=== PATIENT | female | born 1940 | race Caucasian/White ===

== ENCOUNTER 2016-05-28 16:57 | Emergency (ER) | payer MEDICARE, OTHER ==
[2016-05-28] MEDS ORDERED: Albuterol/Ipratropium 3.0-0.5 MG/3 ML Neb Soln NEB ONE (17:04)
[2016-05-28] MEDS ORDERED: Sodium Chloride 0.9% 10 ML Syringe FLUSH PRN (17:05)
[2016-05-28] MEDS ORDERED: methylPREDNISolone Sodium Succinate 125 MG/2 ML SDV IV ONE (17:06)
--- NOTE | 2016-05-28 17:08 | EDM.PDOC ---
ED HISTORY OF PRESENT ILLNESS - General Chief Complaint: Asthma Stated Complaint: SOB Time Seen by Provider: 05/28/16 16:57 Source: Reports: Patient History Limitations: Reports: No limitations - History of Present Illness INITIAL COMMENTS - FREE TEXT/NARRATIVE: c/o sob x 8h awoke sob and wheezing, stayed at home, comes to ED quite SOB, no n/v, no f/c/d , no rhinorrhea, has had cough, no CP had asthma 40y ago, now with no asthma meds has a skipped heart beat and wears a monitor which is sent in monthly, denies other cardiac hx lives alone, son here, does not drive, uses a walker on occasion when she is out , getting more unsteady on her feet - Related Data Allergies/ADRs: Allergies Allergy/AdvReac Type Severity Reaction Status Date / Time No Known Allergies Allergy Verified 05/28/16 17:06 Home Meds: Home Meds Aspirin [Ecotrin] 81 mg PO BEDTIME 05/09/15 [History] Calcium Carbonate [[id number]] 500 mg PO DAILY 05/09/15 [History] Mirtazapine [Mirtazapine] 15 mg PO BEDTIME 05/09/15 [History] [place]-3S/DHA/Epa/Fish Oil [[place]-3 Fish Oil 1,000 mg Sfgl] 1,000 mg PO DAILY [History] Simvastatin [Simvastatin] 40 mg PO BEDTIME 05/09/15 [History] traZODone 200 mg PO BEDTIME 05/09/15 [History] Levothyroxine [Sythroid] 100 mcg PO DAILY 08/08/15 [History] Venlafaxine HCl [Venlafaxine ER] 150 mg DAILY 08/08/15 [History] traZODone 50 mg BID 08/08/15 [History] PARoxetine [Paxil] 30 mg PO DAILY 05/28/16 [History] Prednisone [IJD: predniSONE] 20 mg PO DAILY #9 tab 05/28/16 [Rx] Past Medical History HEENT History: Reports: Cataract, Hard of hearing, Impaired vision, Otitis media Cardiovascular History: Reports: Arrhythmia, High cholesterol, Hypertension, Pacemaker, SOB on exertion Respiratory History: Reports: Pneumonia, recurrent, SOB, Other (see below) Other Respiratory History: EMPHYSEMA Gastrointestinal History: Reports: Cholelithiasis Other Gastrointestinal History: DYSPHAGIA WITH CHOKING Genitourinary History: Reports: None [employer] 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 - Past Surgical History HEENT Surgical History: Reports: Adenoidectomy, Tonsillectomy Cardiovascular Surgical History: Reports: Pacer GI Surgical History: Reports: Appendectomy, Cholecystectomy, Colonoscopy, Polypectomy Female Surgical History: Reports: D&C, Hysterectomy Oncologic Surgical History: Reports: None Social & Family History - Family History Family Medical History: Noncontributory - Tobacco Use Smoking Status *Q: Former Smoker - Recreational Drug Use Recreational Drug Use: No ED ROS GENERAL - Review of Systems Review Of Systems: See Below Constitutional: Reports: no symptoms HEENT: Reports: No symptoms Respiratory: Reports: Shortness of Breath, Wheezing, Cough Cardiovascular: Reports: No symptoms Endocrine: Reports: no symptoms GI/Abdominal: Reports: No symptoms : Reports: no symptoms Musculoskeletal: Reports: no symptoms Skin: Reports: no symptoms Neurological: Reports: No Symptoms Psychiatric: Reports: No symptoms Hematologic/Lymphatic: Reports: no symptoms Immunologic: Reports: no symptoms ED EXAM, GENERAL - Physical Exam Exam: See Below Exam Limited By: No limitations General Appearance: alert, WD/WN, mild distress, other (mild dypnea, fair AE without audible wheezing, talks 6-8 word sentences, no diaphoresis) Ears: normal external exam, hearing grossly normal Ear Exam: bilateral ear: auricle normal Nose: normal inspection, normal mucosa, no blood Throat/Mouth: Normal inspection, Normal lips, Normal teeth, Normal gums, Normal oropharynx, Normal voice, No airway compromise Head: atraumatic, normocephalic Neck: normal inspection, supple, non-tender, full range of motion Respiratory/Chest: no accessory muscle use, chest non-tender, other (fair AE, no grunt, no purse lips) Cardiovascular: regular rate, rhythm, no edema, other (2/6 LIANA at LSB) Back Exam: normal inspection, full range of motion, NT Extremities: normal inspection, normal range of motion, non-tender, no pedal edema Neurological: alert, oriented, CN II-XII intact, normal cognition, no motor/ sensory deficits Psychiatric: normal affect, normal mood Skin Exam: Warm, Dry, Intact, Normal color, No rash Lymphatic: no adenopathy Course - Vital Signs Last Recorded V/S: Last Vital Signs Temp 36.9 C 05/28/16 17:37 Pulse 79 05/28/16 18:30 Resp 15 05/28/16 18:30 BP 144/60 H 05/28/16 18:30 Pulse Ox 98 05/28/16 18:30 - Orders/Labs/Meds Orders: Active Orders 24 hr Category Date Time Status EKG Documentation Completion [RC] ASDIRECTED Care 05/28/16 17:00 Active RT Aerosol Therapy [RC] ASDIRECTED Care 05/28/16 17:04 Active Chest 1V Frontal [CR] Stat Exams 05/28/16 17:02 Taken Chest 2V [CR] Stat Exams 05/28/16 18:42 Taken Sodium Chloride 0.9% [Saline Flush] Med 05/28/16 17:05 Active 10 ml FLUSH ASDIRECTED PRN Saline Lock Insert [OM.PC] Routine Oth 05/28/16 17:05 Ordered EKG 12 Lead [EK] Routine Ther 05/28/16 17:00 Ordered Medication Orders Sodium Chloride (Saline Flush) 10 ml FLUSH ASDIRECTED PRN PRN Reason: Keep Vein Open Last Admin: 05/28/16 17:22 Dose: 10 ml Labs: Laboratory Tests 05/28/16 05/28/16 05/28/16 Range/Units 17:20 17:20 17:20 WBC 6.2 (4.5-12.0) X10-3/uL RBC 4.38 (3.23-5.20) x10(6)uL Hgb 11.9 (11.5-15.5) g/dL Hct 36.7 (30.0-51.3) % MCV 83.7 (80-96) fL MCH 27.3 L (27.7-33.6) pg MCHC 32.6 (32.2-35.4) g/dL RDW 12.6 (11.5-15.5) % Plt Count 215 (125-369) X10(3)uL MPV 9.1 (7.4-10.4) fL Neut % (Auto) 56.9 (46-82) % Lymph % (Auto) 30.1 (13-37) % Pacific % (Auto) 9.5 (4-12) % Eos % (Auto) 2 (1.0-5.0) % Baso % (Auto) 1 (0-2) % Neut # (Auto) 3.5 (1.6-8.3) # Lymph # (Auto) 1.9 (0.6-5.0) # Pacific # (Auto) 0.6 (0.0-1.3) # Eos # (Auto) 0.1 (0.0-0.8) # Baso # (Auto) 0.1 (0.0-0.2) # D-Dimer, Quantitative 173 (100-400) ng/mL ABG pH (7.35-7.45) ABG pCO2 (35-45) mmHg ABG pO2 (83-108) mmHg ABG HCO3 (22-26) mmol/L ABG O2 Saturation (96-97) % ABG Base Excess (-2-2) Norris Test O2 Delivery Device Sodium 136 (135-145) mmol/L Potassium 4.4 (3.5-5.3) mmol/L Chloride 105 (100-110) mmol/L Carbon Dioxide 21 L (23-29) mmol/L BUN 15 (8-23) mg/dL Creatinine 0.7 (0.6-1.3) mg/dL Est Cr Clr Drug Dosing 58.12 mL/min Estimated GFR (MDRD) > 60 (>60) BUN/Creatinine Ratio 21.4 H (9-20) Glucose 147 H (80-116) mg/dL Lactic Acid (0.5-2.2) mmol/L Calcium 8.4 L (8.6-10.2) mg/dL Total Bilirubin 0.6 (0.1-1.3) mg/dL AST 25 D (5-27) IU/L ALT 18 (14-26) IU/L Alkaline Phosphatase 65 (56-112) IU/L Troponin I (0.02-0.06) NG/ML C-Reactive Protein 0.8 (0.0-1.0) mg/dL B-Natriuretic Peptide (0-100) pg/mL Total Protein 6.3 (6.0-8.0) g/dL Albumin 3.6 (3.2-4.6) g/dL Globulin 2.7 g/dL Albumin/Globulin Ratio 1.3 05/28/16 05/28/16 05/28/16 Range/Units 17:20 17:20 17:20 WBC (4.5-12.0) X10-3/uL RBC (3.23-5.20) x10(6)uL Hgb (11.5-15.5) g/dL Hct (30.0-51.3) % MCV (80-96) fL MCH (27.7-33.6) pg MCHC (32.2-35.4) g/dL RDW (11.5-15.5) % Plt Count (125-369) X10(3)uL MPV (7.4-10.4) fL Neut % (Auto) (46-82) % Lymph % (Auto) (13-37) % Pacific % (Auto) (4-12) % Eos % (Auto) (1.0-5.0) % Baso % (Auto) (0-2) % Neut # (Auto) (1.6-8.3) # Lymph # (Auto) (0.6-5.0) # Pacific # (Auto) (0.0-1.3) # Eos # (Auto) (0.0-0.8) # Baso # (Auto) (0.0-0.2) # D-Dimer, Quantitative (100-400) ng/mL ABG pH 7.49 H (7.35-7.45) ABG pCO2 31 L (35-45) mmHg ABG pO2 76 L (83-108) mmHg ABG HCO3 24 (22-26) mmol/L ABG O2 Saturation 96 (96-97) % ABG Base Excess 1.3 (-2-2) Norris Test Not performed O2 Delivery Device Room air Sodium (135-145) mmol/L Potassium (3.5-5.3) mmol/L Chloride (100-110) mmol/L Carbon Dioxide (23-29) mmol/L BUN (8-23) mg/dL Creatinine (0.6-1.3) mg/dL Est Cr Clr Drug Dosing mL/min Estimated GFR (MDRD) (>60) BUN/Creatinine Ratio (9-20) Glucose (80-116) mg/dL Lactic Acid (0.5-2.2) mmol/L Calcium (8.6-10.2) mg/dL Total Bilirubin (0.1-1.3) mg/dL AST (5-27) IU/L ALT (14-26) IU/L Alkaline Phosphatase (56-112) IU/L Troponin I < 0.01 L (0.02-0.06) NG/ML C-Reactive Protein (0.0-1.0) mg/dL B-Natriuretic Peptide 64 (0-100) pg/mL Total Protein (6.0-8.0) g/dL Albumin (3.2-4.6) g/dL Globulin g/dL Albumin/Globulin Ratio / Range/Units 17:20 WBC (4.5-12.0) X10-3/uL RBC (3.23-5.20) x10(6)uL Hgb (11.5-15.5) g/dL Hct (30.0-51.3) % MCV (80-96) fL MCH (27.7-33.6) pg MCHC (32.2-35.4) g/dL RDW (11.5-15.5) % Plt Count (125-369) X10(3)uL MPV (7.4-10.4) fL Neut % (Auto) (46-82) % Lymph % (Auto) (13-37) % [place] % (Auto) (4-12) % Eos % (Auto) (1.0-5.0) % Baso % (Auto) (0-2) % Neut # (Auto) (1.6-8.3) # Lymph # (Auto) (0.6-5.0) # Pacific # (Auto) (0.0-1.3) # Eos # (Auto) (0.0-0.8) # Baso # (Auto) (0.0-0.2) # D-Dimer, Quantitative (100-400) ng/mL ABG pH (7.35-7.45) ABG pCO2 (35-45) mmHg ABG pO2 (83-108) mmHg ABG HCO3 (22-26) mmol/L ABG O2 Saturation (96-97) % ABG Base Excess (-2-2) Norris Test O2 Delivery Device Sodium (135-145) mmol/L Potassium (3.5-5.3) mmol/L Chloride (100-110) mmol/L Carbon Dioxide (23-29) mmol/L BUN (8-23) mg/dL Creatinine (0.6-1.3) mg/dL Est Cr Clr Drug Dosing mL/min Estimated GFR (MDRD) (>60) BUN/Creatinine Ratio (9-20) Glucose (80-116) mg/dL Lactic Acid 1.7 (0.5-2.2) mmol/L Calcium (8.6-10.2) mg/dL Total Bilirubin (0.1-1.3) mg/dL AST (5-27) IU/L ALT (14-26) IU/L Alkaline Phosphatase (56-112) IU/L Troponin I (0.02-0.06) NG/ML C-Reactive Protein (0.0-1.0) mg/dL B-Natriuretic Peptide (0-100) pg/mL Total Protein (6.0-8.0) g/dL Albumin (3.2-4.6) g/dL Globulin g/dL Albumin/Globulin Ratio Meds: Medications Generic Name Dose Route Start Last Admin Trade Name Freq PRN Reason Stop Dose Admin Sodium Chloride 10 ml 05/28/16 17:05 05/28/16 17:22 Saline Flush FLUSH 10 ml ASDIRECTED PRN Administration Keep Vein Open Discontinued Medications Generic Name Dose Route Start Last Admin Trade Name Freq PRN Reason Stop Dose Admin Albuterol/Ipratropium 3 ml 05/28/16 17:04 05/28/16 17:16 Duoneb 3.0-0.5 Mg/3 Ml NEB 05/28/16 17:05 3 ml ONETIME ONE Administration Methylprednisolone Sodium Succinate 125 mg 05/28/16 17:06 05/28/16 17:25 Solu-Medrol IV 05/28/16 17:07 125 mg ONETIME ONE Administration - Re-Assessments/Exams Free Text/Narrative Re-Assessment/Exam: 05/28/16 19:22 labs and XR reviewed with pt, EKG and troponin and BNP are all wnl, no evidence of infiltrate or effusion on CxR, there is a diaphragmatic hernia on CxR with loss of ~20% of effective lung capacity on L, while hernia is likely old, there is no comparison. Pt did respond well to Duoneb with inc'd AE and dec'd dyspnea. No cough observed here, talking now in complete sentences. Trigger for asthma exacerbation unknown. No evidence of infection, no temp, CRP neg. Departure - Departure Time of Disposition: 19:25 Disposition: Home, Self-Care 01 Condition: good Clinical Impression: Asthma exacerbation, Diaphragmatic hernia Prescriptions: Prednisone [IJD: predniSONE] 20 mg PO DAILY #9 tab Instructions: How to Use an Inhaler, [id number], Asthma, Adult, Hernia, Adult Forms: ED Department Discharge Additional Instructions: To keep the airways open, take 2 puffs from the albuterol inhaler 4 times a day for 2 days, then 2 puffs every 4 hours as needed. To keep the airways open, take the prednisone 20 mg 2 tabs daily for 2 days, then 1 tab daily for 5 days. See your doctor in 2 days. Return to ED if you are feeling worse or are more short of breath. Call your Physician or Return to Emergency Department if: * Your condition worsens in any way. * You develop fever greater than 100.4. * You have vomiting that does not stop with medications. * You have pain that is not controlled with medications. - My Orders Last 24 Hours: My Active Orders 05/28/16 17:00 EKG Documentation Completion [RC] ASDIRECTED EKG 12 Lead [EK] Routine 05/28/16 17:02 Chest 1V Frontal [CR] Stat 05/28/16 17:04 RT Aerosol Therapy [RC] ASDIRECTED 05/28/16 17:05 Sodium Chloride 0.9% [Saline Flush] 10 ml FLUSH ASDIRECTED PRN Saline Lock Insert [OM.PC] Routine 05/28/16 18:42 Chest 2V [CR] Stat - Assessment/Plan Last 24 Hours: My Active Orders 05/28/16 17:00 EKG Documentation Completion [RC] ASDIRECTED EKG 12 Lead [EK] Routine 05/28/16 17:02 Chest 1V Frontal [CR] Stat 05/28/16 17:04 RT Aerosol Therapy [RC] ASDIRECTED 05/28/16 17:05 Sodium Chloride 0.9% [Saline Flush] 10 ml FLUSH ASDIRECTED PRN Saline Lock Insert [OM.PC] Routine 05/28/16 18:42 Chest 2V [CR] Stat
[2016-05-28] MEDS ORDERED: Albuterol 8 GM Inhaler INH ONE (19:23)
[2016-05-28 19:40] VITALS: BP 141/62
--- NOTE | 2016-05-29 12:35 | CR ---
INDICATION: Short of breath. CHEST: AP upright portable view of the chest 05/28/2016 at 1719 hours was obtained upright. No comparisons were available. The heart is normal in size and shape. The aorta is somewhat tortuous with suggestion of calcification in the arch of the aorta. Overlying EKG leads are noted. Overlying metallic densities from apparel are noted. Slightly elevated left hemidiaphragm is likely anatomic, with gastric fundus in that area. Somewhat heavy marking are noted in the lower lung diaz, which may be on the basis of pulmonary fibrosis. A consolidating pneumonia or effusion was not seen. IMPRESSION: No definite acute process. MTDD
--- NOTE | 2016-05-29 12:37 | CR ---
INDICATION: Asthma, question hiatal hernia. CHEST: PA and lateral views of the chest were obtained with two PA views and revealed somewhat elevated left hemidiaphragm, most likely an anatomic variation , with what appears to be the gastric bubble in that area, splenic flexure below. Interdigitation of the right hemidiaphragm leaf is noted, somewhat flattened diaphragm leaf seen with slightly prominent AP diameter, suggesting COPD. A definite active infiltrate or effusion was not identified. Somewhat diminished bone density is suggested, compatible with osteoporosis - correlate clinically. Mild degenerative changes are noted in the mid thoracic spine with a mild dextroconvex scoliosis. The heart appeared normal in size and shape. The aorta is tortuous to a mild degree with calcification in the arch. IMPRESSION: 1. No definite acute process. 2. Probable COPD. 3. Pulmonary fibrosis with somewhat heavy markings in the mid to lower lung diaz. 4. Osteoporosis, dextroconvex scoliosis lower middle thoracic spine with mild degenerative changes mid thoracic spine. 5. ASD aorta. 6. Somewhat elevated left hemidiaphragm, most likely an anatomic variant with gastric bubble in that area. If hiatal hernia is suspected clinically, additional examination such as esophagram or upper GI may be helpful. MTDD
== END 2016-05-28 19:35 | disposition home or self-care (01) ==
LOC: FB.ED 16:57
DX: J45.901 Unspecified asthma with (acute) exacerbation (principal); K44.9 Diaphragmatic hernia without obstruction or gangrene; I10 Essential (primary) hypertension; E20.9 Hypoparathyroidism, unspecified; E78.00 Pure hypercholesterolemia, unspecified; F41.9 Anxiety disorder, unspecified; F32.9 Major depressive disorder, single episode, unspecified; Z79.82 Long term (current) use of aspirin; Z79.899 Other long term (current) drug therapy; Z87.891 Personal history of nicotine dependence
CPT/HCPCS: 36415; 36600; 71010; 71020; 80053; 82803; 83605; 83880; 84484; 85025; 85379; 86140; 93005; 96374; 99284; A9270; J2930; J7050; J7620; 94640

== ENCOUNTER 2018-12-02 07:48 | Day surgery (SDC) | payer MEDICARE ==
[~2018-12-02 07:48] MED LIST: Lactated Ringers 1,000 ML IV PRN
[2018-12-02] MEDS ORDERED: Sodium Chloride 0.9% 10 ML Syringe IV ONE (07:49)
[2018-12-02] MEDS ORDERED: fentaNYL 100 MCG/2 ML SDV IV ONE (07:49)
[2018-12-02] MEDS ORDERED: Midazolam 1 MG/ML 2 ML SDV IV ONE (07:49)
[2018-12-02] MEDS: Sodium Chloride 0.9% 10 ML Syringe FLUSH PRN (08:23)
--- NOTE | 2018-12-02 11:37 | OR ---
DATE OF OPERATION: 12/02/2018 SURGEON: Nelly Rivas MD PREOPERATIVE DIAGNOSIS: Visually significant cataract, left eye. POSTOPERATIVE DIAGNOSIS: Visually significant cataract, left eye. PROCEDURES PERFORMED: Phacoemulsification with intraocular lens placement, left eye. ASSISTANTS: None. ANESTHESIA: Local with sedation. COMPLICATIONS: None. BLOOD LOSS: None. IMPLANTS: Al [id number], 24.0 diopter lens implanted. CDE: 3.68. DESCRIPTION OF PROCEDURE: After risks and benefits were reviewed with the patient, consent was obtained in the preoperative area, and the operative eye was marked with a surgical pen. In the preoperative area, a pledget was used to dilate the pupil consisting of a mixture of phenylephrine 10%, cyclopentolate 2%, moxifloxacin 0.5%, and bupivacaine 0.75%. The patient was taken to the operating room, where a time-out was performed, and the patient was placed under monitored anesthesia care. Topical tetracaine was used for anesthesia. The operative eye was prepped and draped for ophthalmic surgery, and the microscope was brought into position and focussed. A paracentesis incision was made, followed by injection of preservative-free 1% lidocaine into the anterior chamber, followed by injection of Viscoat into the anterior chamber. A microkeratome blade was used to make a corneal limbal incision temporarily. A cystotome was used to make the beginning of the capsulorrhexis, which was carried around 360 degrees in a curvilinear fashion using Utrata forceps. A Anthony cannula with BSS was used to hydrodissect and hydrodelineate the nucleus. The nucleus was removed in a divide and conquer manner using phacoemulsification. Irrigation and aspiration were used to remove the remaining cortical material. Provisc was used to inflate the capsular bag, and a pre-loaded Al [id number], 24.0 diopter lens, serial number [id number] was injected into the capsular bag. A Sinskey hook was used to position and center the lens. Next, irrigation and aspiration was used to remove any remaining viscoelastic and cortical material from the anterior chamber. BSS on a cannula was used to inflate the anterior chamber and hydrate the wound. The wound was checked and found to be watertight. 1 mg of Moxifloxacin was injected into the anterior chamber. Drapes were removed and the eye was cleaned. A drop of brimonidine 0.15% and a drop of TobraDex was placed. The eye was shielded, and the patient was taken to the recovery room in stable condition. /[id number] DARREN/MATT CC: HERMILA BARBA NP MTDD
[2018-12-02 16:25] VITALS: BP 114/62; PULSE 72
== END 2018-12-02 10:40 | disposition home or self-care (01) ==
LOC: FB.SDS 07:48
PROVIDERS: ATTEND Ophthalmology
DX: H25.9 Unspecified age-related cataract (principal); E03.9 Hypothyroidism, unspecified; E78.5 Hyperlipidemia, unspecified; I10 Essential (primary) hypertension; G47.00 Insomnia, unspecified; F03.90 Unspecified dementia, unspecified severity, without behavioral disturbance, psychotic disturbance, mood disturbance, and anxiety; F41.9 Anxiety disorder, unspecified; F32.9 Major depressive disorder, single episode, unspecified; Z79.899 Other long term (current) drug therapy; Z79.82 Long term (current) use of aspirin; Z87.891 Personal history of nicotine dependence
CPT/HCPCS: 66984; J2250; J3010; V2632

== ENCOUNTER 2019-11-28 11:21 | Emergency (ER) | payer MEDICARE ==
[2019-11-28 11:34] VITALS: BP 92/66; PULSE 86
[2019-11-28] MEDS ORDERED: Sodium Chloride 0.9% 10 ML Syringe FLUSH PRN (11:40)
[2019-11-28] MEDS ORDERED: Sodium Chloride 0.9% 500 ML IV ONE (11:40)
--- NOTE | 2019-11-28 11:48 | EDM.PDOC ---
ED HPI GENERAL MEDICAL PROBLEM - General Chief Complaint: Head Injury Stated Complaint: FALL Time Seen by Provider: 11/28/19 11:41 Source of Information: Reports: Patient History Limitations: Reports: No Limitations - History of Present Illness INITIAL COMMENTS - FREE TEXT/NARRATIVE: Patient tripped over the edge of her rug, fell backwards and struck the back of her head against a kitchen chair at her residence ([facility]). There was no LOC. She complains of mild headache and dizziness. Denies chest pain, abdominal pain, pelvis pain, or N/V. PMHx significant for hyperlipidemia, hypothyroidism, Anxiety, and Depression. Last Tetanus vaccine was 2014. Onset: Today Duration: Hour(s): (1) Location: Reports: Head Severity: Mild Headache Pain Score (Numeric/FACES): 4 - Related Data Allergies Allergy/AdvReac Type Severity Reaction Status Date / Time No Known Allergies Allergy Verified 11/28/19 11:59 Home Meds: Home Meds Aspirin [Ecotrin] 81 mg PO BEDTIME 05/09/15 [History] [place]-3S/DHA/Epa/Fish Oil [[place]-3 Fish Oil 1,000 mg Sfgl] 1,000 mg PO TID 05/09/15 [History] DULoxetine [Cymbalta] 60 mg PO DAILY 11/18/17 [History] Donepezil [Aricept] 2.5 mg PO DAILY 11/18/17 [History] Levothyroxine [Synthroid] 88 mcg PO DAILY 11/18/17 [History] QUEtiapine Fumarate [Seroquel] 100 mg PO DAILY 11/18/17 [History] clonazePAM [Klonopin] 1 mg PO BID 11/18/17 [History] Albuterol [Ventolin HFA] 2 puff INH Q4H PRN 11/28/18 [History] Calcium Carbonate 500 mg PO TIDMEALS 11/28/18 [History] Carboxymethylcellulose Sodium [Refresh Tears] 15 ml OP ASDIRECTED PRN 11/28/18 [History] DULoxetine [Cymbalta] 30 mg PO DAILY 11/28/18 [History] Memantine [Namenda] 5 mg PO DAILY 11/28/18 [History] Simvastatin [Zocor] 20 mg PO DAILY 11/28/18 [History] Past Medical History HEENT History: Reports: Cataract, Hard of Hearing, Impaired Vision, Otitis Media Cardiovascular History: Reports: Arrhythmia, High Cholesterol, Pacemaker, SOB on Exertion, Syncope Respiratory History: Reports: Pneumonia, Recurrent, SOB, Other (See Below) Other Respiratory History: EMPHYSEMA, DYSPHAGIA Gastrointestinal History: Reports: Cholelithiasis Other Gastrointestinal History: DYSPHAGIA WITH CHOKING Genitourinary History: Reports: None 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 - Infectious Disease History Infectious Disease History: Reports: Chicken Pox, Measles, Mumps, Shingles - Past Surgical History Head Surgeries/Procedures: Reports: None HEENT Surgical History: Reports: Adenoidectomy, Cataract Surgery, Tonsillectomy Cardiovascular Surgical History: Reports: Pacer Respiratory Surgical History: Reports: None GI Surgical History: Reports: Appendectomy, Cholecystectomy, Colonoscopy, Polypectomy Female Surgical History: Reports: Breast Biopsy, D&C, Hysterectomy Endocrine Surgical History: Reports: None Neurological Surgical History: Reports: None Musculoskeletal Surgical History: Reports: None Oncologic Surgical History: Reports: None Dermatological Surgical History: Reports: None Social & Family History - Family History Family Medical History: Noncontributory - Tobacco Use Tobacco Use Status *Q: Former Tobacco User Used Tobacco, but Quit: Yes Month/Year Tobacco Last Used: 24 years ago - Caffeine Use Caffeine Use: Reports: Coffee - Alcohol Use Alcohol Use History: No - Recreational Drug Use Recreational Drug Use: No ED ROS GENERAL - Review of Systems Review Of Systems: Comprehensive ROS is negative, except as noted in HPI. ED EXAM, HEAD INJURY - Physical Exam Exam: See Below Exam Limited By: No Limitations General Appearance: Alert, WD/WN, No Apparent Distress Head: Other (4 cm left occipital laceration) Nexus Criteria: No: Posterior, Midline Cervical Tenderness, Evidence of Intoxication, Altered Level of Consciousness, Focal Neurological Deficit, Painful Distraction Injuries Eyes: Bilateral Eye: EOMI, PERRL Ears: Normal External Exam Nose: Normal Inspection Throat/Mouth: No Airway Compromise Neck: Non-Tender Respiratory: No Respiratory Distress, Lungs Clear, Normal Breath Sounds Cardiovascular: Regular Rate, Rhythm, No Murmur GI/Abdominal Exam: Normal Bowel Sounds, Soft, Non-Tender, No Distention Back Exam: Normal Inspection, Full Range of Motion Extremities: Normal Inspection, Normal Range of Motion, Non-Tender Neurologic: No Motor/Sensory Deficits, Alert, Normal Mood/Affect, Oriented x 3 - [place] Coma Score Best Eye Response (Frank): (4) Open Spontaneously Best Verbal Response ([place]): (5) Oriented Best Motor Response (Frank): (6) Obeys Commands [place] Total: 15 ED LACERATION/WOUND & BREA PROC - Laceration/Wound Repair Head Lac/wound length in cm: 4 Appearance: Subcutaneous Distal NVT: Neuro & Vascular Intact Anesthetic Type: Local Local Anesthesia - Lidocaine (Xylocaine): 1% Plain Local Anesthetic Volume: 3cc Skin Prep: Chlorhexidine (Hibiciens) Closed with: Shanti # of Sutures: 8 Tetanus Status Addressed: Yes Complications: No #1 Interpretation EKG Date: 11/28/19 Time: 11:40 Rhythm: NSR Rate (Beats/Min): 81 [place]: Normal P-Wave: Present QRS: Normal ST-T: Normal QT: Normal Course - Vital Signs Last Recorded V/S: Last Vital Signs Temp 36.5 C 11/28/19 11:25 Pulse 86 11/28/19 11:25 Resp 18 11/28/19 11:25 BP 92/66 11/28/19 11:25 Pulse Ox 96 11/28/19 11:25 - Orders/Labs/Meds Orders: Active Orders 24 hr Category Date Time Status Cervical Spine wo Cont [CT] Stat Exams 11/28/19 11:27 Ordered Head wo Cont [CT] Stat Exams 11/28/19 11:25 Taken UA W/MICROSCOPIC [URIN] Stat Lab 11/28/19 12:15 Received Saline Lock Insert [OM.PC] Routine Oth 11/28/19 11:40 Ordered EKG 12 Lead [EK] Stat Ther 11/28/19 11:39 Ordered Labs: Laboratory Tests 11/28/19 11/28/19 11/28/19 Range/Units 12:00 12:00 12:00 WBC 5.9 (4.5-12.0) X10-3/uL RBC 4.50 (3.23-5.20) x10(6)uL Hgb 12.2 (11.5-15.5) g/dL Hct 37.8 (30.0-51.3) % MCV 84.0 (80-96) fL MCH 27.2 L (27.7-33.6) pg MCHC 32.4 (32.2-35.4) g/dL RDW 13.2 (11.5-15.5) % Plt Count 210 (125-369) X10(3)uL MPV 8.3 (7.4-10.4) fL Neut % (Auto) 64.6 (46-82) % Lymph % (Auto) 22.3 (13-37) % Lee % (Auto) 10.4 (4-12) % Eos % (Auto) 2 (1.0-5.0) % Baso % (Auto) 1 (0-2) % Neut # (Auto) 3.9 (1.6-8.3) # Lymph # (Auto) 1.3 (0.6-5.0) # Lee # (Auto) 0.6 (0.0-1.3) # Eos # (Auto) 0.1 (0.0-0.8) # Baso # (Auto) 0.0 (0.0-0.2) # PT 10.9 (9.0-11.1) sec INR 1.01 (1.00-1.24) Sodium 145 (135-145) mmol/L Potassium 4.0 (3.5-5.3) mmol/L Chloride 108 (100-110) mmol/L Carbon Dioxide 33 H (21-32) mmol/L BUN 15 (7-18) mg/dL Creatinine 0.9 (0.55-1.02) mg/dL Est Cr Clr Drug Dosing 39.43 mL/min Estimated GFR (MDRD) > 60 (>60) BUN/Creatinine Ratio 16.7 (9-20) Glucose 101 (80-116) mg/dL Calcium 8.5 L (8.6-10.2) mg/dL Meds: Medications Discontinued Medications Generic Name Dose Route Start Last Admin Trade Name Freq PRN Reason Stop Dose Admin Cefuroxime Axetil 250 mg 11/28/19 14:00 11/28/19 14:00 Ceftin PO 11/28/19 14:01 250 mg ONETIME ONE Administration Sodium Chloride 500 mls @ 500 mls/hr 11/28/19 11:40 11/28/19 11:52 Normal Saline IV 11/28/19 12:39 500 mls/hr .BOLUS ONE Administration Sodium Chloride 10 ml 11/28/19 11:40 11/28/19 11:50 Saline Flush FLUSH 10 ml ASDIRECTED PRN Administration Keep Vein Open - Radiology Interpretation Free Text/Narrative:: CT Head s/ contrast: IMPRESSION: 1. No acute intracranial abnormality. 2. Soft tissue swelling and laceration of the left posterior scalp. Dictated by Chris Hull MD @ 11/28/2019 1:10:[address] C-spine s/ contrast: IMPRESSION: No acute cervical spine fracture. Dictated by Chris Hull MD @ 11/28/2019 1:07:05 PM - Re-Assessments/Exams Free Text/Narrative Re-Assessment/Exam: 11/28/19 15:20 No further dizziness after IVF, BP improved to 105/82 11/28/19 15:33 Rx for Ceftin 250 mg bid x 10 days called into [facility] pharmacy. Departure - Departure Time of Disposition: 15:33 Disposition: Home, Self-Care 01 Condition: Good Clinical Impression: Minor head injury Qualifiers: Encounter type: initial encounter Qualified Code(s): S09.90XA - Unspecified injury of head, initial encounter Occipital scalp laceration Qualifiers: Encounter type: initial encounter Qualified Code(s): S01.01XA - Laceration without foreign body of scalp, initial encounter UTI (urinary tract infection) Qualifiers: Urinary tract infection type: acute cystitis Hematuria presence: without hematuria Qualified Code(s): N30.00 - Acute cystitis without hematuria - Discharge Information *PRESCRIPTION DRUG MONITORING PROGRAM REVIEWED*: No *COPY OF PRESCRIPTION DRUG MONITORING REPORT IN PATIENT LUIGI: Not Applicable Referrals: PCP,None [Primary Care Provider] - Forms: ED Department Discharge Additional Instructions: Follow up in 7 days for suture removal. 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 Drink plenty of fluids. Return to the ER if symptoms worsen. Sepsis Event Note (ED) - Evaluation Sepsis Screening Result: No Definite Risk - Focused Exam Vital Signs: Vital Signs Temp Pulse Resp BP Pulse Ox 11/28/19 11:25 36.5 C 86 18 92/66 96 - My Orders Last 24 Hours: My Active Orders 11/28/19 11:25 Head wo Cont [CT] Stat 11/28/19 11:27 Cervical Spine wo Cont [CT] Stat 11/28/19 11:39 EKG 12 Lead [EK] Stat 11/28/19 11:40 Saline Lock Insert [OM.PC] Routine 11/28/19 12:15 UA W/MICROSCOPIC [URIN] Stat - Assessment/Plan Last 24 Hours: My Active Orders 11/28/19 11:25 Head wo Cont [CT] Stat 11/28/19 11:27 Cervical Spine wo Cont [CT] Stat 11/28/19 11:39 EKG 12 Lead [EK] Stat 11/28/19 11:40 Saline Lock Insert [OM.PC] Routine 11/28/19 12:15 UA W/MICROSCOPIC [URIN] Stat
[2019-11-28] MEDS ORDERED: Cefuroxime 250 MG Tab PO ONE (14:00)
[2019-11-28] MEDS ORDERED: Cefuroxime 250 MG Tab ONE (14:02)
== END 2019-11-28 14:33 | disposition home or self-care (01) ==
LOC: FB.ED 11:21
DX: S01.01XA Laceration without foreign body of scalp, initial encounter (principal); S09.90XA Unspecified injury of head, initial encounter; N30.00 Acute cystitis without hematuria; E78.00 Pure hypercholesterolemia, unspecified; F41.9 Anxiety disorder, unspecified; F32.9 Major depressive disorder, single episode, unspecified; E03.9 Hypothyroidism, unspecified; Z79.899 Other long term (current) drug therapy; Z87.891 Personal history of nicotine dependence; Z79.82 Long term (current) use of aspirin; W01.198A Fall on same level from slipping, tripping and stumbling with subsequent striking against other object, initial encounter
CPT/HCPCS: 12002; 36415; 70450; 72125; 80048; 81001; 85025; 85610; 87086; 87088; 87186; 93005; 99285; A9270; J2001; J7040; 93010; 99283

== ENCOUNTER 2019-11-30 13:14 | Emergency (ER) | payer OTHER, MEDICARE ==
[2019-11-30] MEDS ORDERED: Lidocaine 1% with EPINEPHrine 1:100,000 10 ML MDV INJECT ONE (13:15)
[2019-11-30 13:31] VITALS: BP 89/55; PULSE 92
--- NOTE | 2019-11-30 13:49 | EDM.PDOC ---
ED HPI GENERAL MEDICAL PROBLEM - General Chief Complaint: Laceration Stated Complaint: FALL AND LACERATION ON CHIN Time Seen by Provider: 11/30/19 13:30 Source of Information: Reports: Patient, Family, Old Records History Limitations: Reports: No Limitations - History of Present Illness INITIAL COMMENTS - FREE TEXT/NARRATIVE: Belinda returns to [facility] ED with a fall at her [facility] apartment this afternoon. She was trying to reach her wheelchair from the table when she fell. A similar episode occurred 2 days ago, with a scalp laceration. Currently, she bit through her lower chin with a through and through wound, mild active bleeding. There was no LOC. Chin and Mouth Pain Score (Numeric/FACES): 3 - Related Data Allergies Allergy/AdvReac Type Severity Reaction Status Date / Time No Known Allergies Allergy Verified 11/28/19 11:59 Home Meds: Home Meds Aspirin [Ecotrin] 81 mg PO BEDTIME 05/09/15 [History] [place]-3S/DHA/Epa/Fish Oil [[place]-3 Fish Oil 1,000 mg Sfgl] 1,000 mg PO TID 05/09/15 [History] DULoxetine [Cymbalta] 60 mg PO DAILY 11/18/17 [History] Donepezil [Aricept] 2.5 mg PO DAILY 11/18/17 [History] Levothyroxine [Synthroid] 88 mcg PO DAILY 11/18/17 [History] QUEtiapine Fumarate [Seroquel] 100 mg PO DAILY 11/18/17 [History] clonazePAM [Klonopin] 1 mg PO BID 11/18/17 [History] Albuterol [Ventolin HFA] 2 puff INH Q4H PRN 11/28/18 [History] Calcium Carbonate 500 mg PO TIDMEALS 11/28/18 [History] Carboxymethylcellulose Sodium [Refresh Tears] 15 ml OP ASDIRECTED PRN 11/28/18 [History] DULoxetine [Cymbalta] 30 mg PO DAILY 11/28/18 [History] Memantine [Namenda] 5 mg PO DAILY 11/28/18 [History] Simvastatin [Zocor] 20 mg PO DAILY 11/28/18 [History] Past Medical History HEENT History: Reports: Cataract, Hard of Hearing, Impaired Vision, Otitis Media Cardiovascular History: Reports: Arrhythmia, High Cholesterol, Pacemaker, SOB on Exertion, Syncope Respiratory History: Reports: Pneumonia, Recurrent, SOB, Other (See Below) Other Respiratory History: EMPHYSEMA, DYSPHAGIA Gastrointestinal History: Reports: Cholelithiasis Other Gastrointestinal History: DYSPHAGIA WITH CHOKING Genitourinary History: Reports: None 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 - Infectious Disease History Infectious Disease History: Reports: Chicken Pox, Measles, Mumps - Past Surgical History Head Surgeries/Procedures: Reports: None HEENT Surgical History: Reports: Adenoidectomy, Cataract Surgery, Tonsillectomy Cardiovascular Surgical History: Reports: Pacer Respiratory Surgical History: Reports: None GI Surgical History: Reports: Appendectomy, Cholecystectomy, Colonoscopy, Polypectomy Female Surgical History: Reports: Breast Biopsy, D&C, Hysterectomy Endocrine Surgical History: Reports: None Neurological Surgical History: Reports: None Musculoskeletal Surgical History: Reports: None Oncologic Surgical History: Reports: None Dermatological Surgical History: Reports: None Social & Family History - Family History Family Medical History: Noncontributory - Tobacco Use Tobacco Use Status *Q: Never Tobacco User Second Hand Smoke Exposure: No - Caffeine Use Caffeine Use: Reports: Coffee - Recreational Drug Use Recreational Drug Use: No ED ROS GENERAL - Review of Systems Review Of Systems: Comprehensive ROS is negative, except as noted in HPI. ED EXAM, SKIN/RASH Exam: See Below Exam Limited By: No Limitations General Appearance: Alert, WD/WN, No Apparent Distress, Anxious Eye Exam: Bilateral Eye: EOMI, Normal Inspection, PERRL Ears: Normal External Exam, Hearing Loss Nose: Normal Inspection Throat/Mouth: Normal Lips, Normal Gums, Normal Voice, No Airway Compromise, Other (stellate 2 cm laceration extending from lower buccal mucosa thru the overlying chin with linear features, minimal active bleeding) Head: Normocephalic Neck: Normal Inspection, Supple Respiratory/Chest: Lungs Clear Cardiovascular: Regular Rate, Rhythm Back Exam: Normal Inspection Extremities: Normal Inspection Neurological: Alert, CN II-XII Intact Psychiatric: Normal Affect, Anxious Skin: Warm, Dry ED SKIN PROCEDURES - Laceration/Wound Repair Middle Midline Face Appearance: Subcutaneous, Linear, Stellate, Clean Distal NVT: Neuro & Vascular Intact Anesthetic Type: Local Local Anesthesia - Lidocaine (Xylocaine): 1% with EPI Local Anesthetic Volume: 2cc Skin Prep: Chlorhexidine (Hibiciens) Lac/Wound length In cm: 2 Suture Size: 5-0 # of Sutures: 3 Suture Type: Nylon, Interrupted Sterile Dressing Applied: Nurse Tetanus Status Addressed: Yes Complications: No Course - Vital Signs Last Recorded V/S: Last Vital Signs Temp 36.4 C 11/30/19 13:19 Pulse 92 11/30/19 13:19 Resp 18 11/30/19 13:19 BP 89/55 L 11/30/19 13:19 Pulse Ox 94 L 11/30/19 13:19 Departure - Departure Time of Disposition: 13:52 Disposition: Home, Self-Care 01 Condition: Fair Clinical Impression: Laceration of chin without complication Qualifiers: Encounter type: initial encounter Qualified Code(s): S01.81XA - Laceration without foreign body of other part of head, initial encounter - Discharge Information *PRESCRIPTION DRUG MONITORING PROGRAM REVIEWED*: Not Applicable *COPY OF PRESCRIPTION DRUG MONITORING REPORT IN PATIENT LUIGI: Not Applicable Referrals: Camila Chanel NP [Primary Care Provider] - Sepsis Event Note (ED) - Evaluation Sepsis Screening Result: No Definite Risk - Focused Exam Vital Signs: Vital Signs Temp Pulse Resp BP Pulse Ox 11/30/19 13:19 36.4 C 92 18 89/55 L 94 L - Problem List & Annotations (1) Laceration of chin without complication SNOMED Code(s): 707884743, [id number] Code(s): S01.81XA - LACERATION W/O FOREIGN BODY OF OTH PART OF HEAD, INIT ENCNTR Status: Acute Current Visit: Yes Annotation/Comment:: Local wound cares, and SR in 1 week. Qualifiers: Encounter type: initial encounter Qualified Code(s): S01.81XA - Laceration without foreign body of other part of head, initial encounter - Problem List Review Problem List Initiated/Reviewed/Updated: Yes - Assessment/Plan Plan: Follow up with PCP.
== END 2019-11-30 14:00 | disposition home or self-care (01) ==
LOC: FB.ED 13:14
DX: S01.81XA Laceration without foreign body of other part of head, initial encounter (principal); E78.00 Pure hypercholesterolemia, unspecified; F41.9 Anxiety disorder, unspecified; F32.9 Major depressive disorder, single episode, unspecified; E03.9 Hypothyroidism, unspecified; Z79.82 Long term (current) use of aspirin; Z79.899 Other long term (current) drug therapy; W19.XXXA Unspecified fall, initial encounter
CPT/HCPCS: 12011; 99282-25

== ENCOUNTER 2020-04-02 19:53 | Emergency (ER) | payer MEDICARE ==
--- NOTE | 2020-04-02 20:31 | EDM.PDOCBH ---
ED HPI GENERAL MEDICAL PROBLEM - General Chief Complaint: Neuro Symptoms/Deficits Stated Complaint: HALLUCINATIONS Time Seen by Provider: 04/02/20 20:28 Source of Information: Reports: Family History Limitations: Reports: Altered Mental Status - History of Present Illness INITIAL COMMENTS - FREE TEXT/NARRATIVE: Belinda is an 80 [address] from [facility]. She has had increased confusion,and visual hallucinations. She has been more verbally aggressive recently,last 3 weeks. Currently on Rx for a UTI. No fever.She has a h/o Alzheimer's Dementia,on Seroquel. - Related Data Allergies Allergy/AdvReac Type Severity Reaction Status Date / Time No Known Allergies Allergy Verified 11/28/19 11:59 Home Meds: Home Meds Aspirin [Ecotrin] 81 mg PO BEDTIME 05/09/15 [History] [place]-3S/DHA/Epa/Fish Oil [[place]-3 Fish Oil 1,000 mg Sfgl] 1,000 mg PO TID 05/09/15 [History] DULoxetine [Cymbalta] 60 mg PO DAILY 11/18/17 [History] Donepezil [Aricept] 2.5 mg PO DAILY 11/18/17 [History] Levothyroxine [Synthroid] 88 mcg PO DAILY 11/18/17 [History] QUEtiapine Fumarate [Seroquel] 100 mg PO DAILY 11/18/17 [History] clonazePAM [Klonopin] 1 mg PO BID 11/18/17 [History] Albuterol [Ventolin HFA] 2 puff INH Q4H PRN 11/28/18 [History] Calcium Carbonate 500 mg PO TIDMEALS 11/28/18 [History] Carboxymethylcellulose Sodium [Refresh Tears] 15 ml OP ASDIRECTED PRN 11/28/18 [History] DULoxetine [Cymbalta] 30 mg PO DAILY 11/28/18 [History] Memantine [Namenda] 5 mg PO DAILY 11/28/18 [History] Simvastatin [Zocor] 20 mg PO DAILY 11/28/18 [History] QUEtiapine [SEROquel] 25 mg PO DAILY #30 tab 04/02/20 [Rx] Past Medical History HEENT History: Reports: Cataract, Hard of Hearing, Impaired Vision, Otitis Media Cardiovascular History: Reports: Arrhythmia, High Cholesterol, Pacemaker, SOB on Exertion, Syncope Respiratory History: Reports: Pneumonia, Recurrent, SOB, Other (See Below) Other Respiratory History: EMPHYSEMA, DYSPHAGIA Gastrointestinal History: Reports: Cholelithiasis Other Gastrointestinal History: DYSPHAGIA WITH CHOKING Genitourinary History: Reports: None 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 - Infectious Disease History Infectious Disease History: Reports: Chicken Pox, Measles, Mumps - Past Surgical History Head Surgeries/Procedures: Reports: None HEENT Surgical History: Reports: Adenoidectomy, Cataract Surgery, Tonsillectomy Cardiovascular Surgical History: Reports: Pacer Respiratory Surgical History: Reports: None GI Surgical History: Reports: Appendectomy, Cholecystectomy, Colonoscopy, Polypectomy Female Surgical History: Reports: Breast Biopsy, D&C, Hysterectomy Endocrine Surgical History: Reports: None Neurological Surgical History: Reports: None Musculoskeletal Surgical History: Reports: None Oncologic Surgical History: Reports: None Dermatological Surgical History: Reports: None Social & Family History - Family History Family Medical History: No Pertinent Family History - Caffeine Use Caffeine Use: Reports: Coffee ED ROS GENERAL - Review of Systems Review Of Systems: Comprehensive ROS is negative, except as noted in HPI. ED EXAM, BEHAVIORAL HEALTH - Physical Exam Exam: See Below Exam Limited By: Altered Mental Status General Appearance: Alert, WD/WN Throat/Mouth: Normal Inspection Head: Atraumatic Neck: Normal Inspection Neurological: Alert, CN II-XII Intact Psychiatric: Disoriented, Withdrawn Skin Exam: Warm COURSE, BEHAVIORAL HEALTH COMP - Course Vital Signs: Last Vital Signs Temp 97.1 F 04/02/20 19:53 Pulse 90 04/02/20 19:53 Resp 17 04/02/20 19:53 BP 110/51 L 04/02/20 19:53 Pulse Ox 96 04/02/20 19:53 Orders, Labs, Meds: Active Orders 24 hr Category Date Time Status CULTURE URINE [RM] Stat Lab 04/02/20 20:43 Ordered Laboratory Tests 04/02/20 04/02/20 04/02/20 Range/Units 20:15 20:15 20:29 WBC 7.3 (3.0-10.3) x10-3/uL RBC 4.48 (3.60-5.20) x10(6)uL Hgb 11.6 (11.4-15.5) g/dL Hct 36.8 (34.2-48.2) % MCV 82.2 (76.7-100.5) fL MCH 25.9 (23.9-33.9) pg MCHC 31.6 L (31.9-34.8) g/dL RDW 14.4 (12.3-16.5) % Plt Count 225 (151-488) x10(3)uL MPV 8.8 (7.1-12.4) fL Neut % (Auto) 48.9 (30.8-76.2) % Lymph % (Auto) 30.6 (18.4-52.1) % Stevens % (Auto) 13.3 (4.4-15.7) % Eos % (Auto) 5.3 (0.6-8.1) % Baso % (Auto) 1.9 H (0.2-1.5) % Neut # (Auto) 3.6 (1.5-6.3) x10-3/uL Lymph # (Auto) 2.2 (1.0-4.4) x10-3/uL Stevens # (Auto) 1.0 (0.3-1.0) x10-3/uL Eos # (Auto) 0.4 (0.0-0.8) x10-3/uL Baso # (Auto) 0.1 (0.0-0.1) x10-3/uL Sodium 145 (135-145) mmol/L Potassium 4.0 (3.5-5.3) mmol/L Chloride 109 (100-110) mmol/L Carbon Dioxide 27 (21-32) mmol/L BUN 24 H (7-18) mg/dL Creatinine 1.4 H (0.55-1.02) mg/dL Est Cr Clr Drug Dosing TNP Estimated GFR (MDRD) 36 L (>60) BUN/Creatinine Ratio 17.1 (9-20) Glucose 151 H (80-116) mg/dL Calcium 8.5 L (8.6-10.2) mg/dL Total Bilirubin 0.2 (0.1-1.3) mg/dL AST 17 D (5-25) IU/L ALT 17 D (12-36) U/L Alkaline Phosphatase 85 (56-112) IU/L Total Protein 6.9 (6.0-8.0) g/dL Albumin 3.4 (3.2-4.6) g/dL Globulin 3.5 g/dL Albumin/Globulin Ratio 1.0 Urine Color Yellow (YELLOW) Urine Appearance Slightly cloudy (CLEAR) Urine pH 5.0 (5.0-6.5) Ur Specific [place] 1.025 (1.010-1.025) Urine Protein Trace (NEGATIVE) mg/dL Urine Glucose (UA) Normal (NORMAL) mg/dL Urine Ketones 15 H (NEGATIVE) mg/dL Urine Occult Blood Negative (NEGATIVE) Urine Nitrite Negative (NEGATIVE) Urine Bilirubin Small H (NEGATIVE) Urine Urobilinogen 1 H (NEGATIVE) mg/dL Ur Leukocyte Esterase Moderate H (NEGATIVE) Urine RBC 5-10 H (0-5) Urine WBC 5-10 H (0-5) Ur Squamous Epith Cells Few H (NS,R,O) Uric Acid Crystals Few H (NS) Urine Bacteria Few H (NS) Urine Mucus Few H (NS) Departure - Departure Time of Disposition: 21:06 Disposition: Home, Self-Care 01 Clinical Impression: Dementia - Discharge Information Prescriptions: QUEtiapine [SEROquel] 25 mg PO DAILY #30 tab Instructions: Dementia, [id number] Referrals: Camila Chanel NP [Primary Care Provider] - Forms: ED Department Discharge Additional Instructions: please start seroquel 25mg po 8am daily please make an appointment with Brooke Chanel on Saturday04/04/2020 at [facility]. Sepsis Event Note (ED) - Focused Exam Vital Signs: Vital Signs Temp Pulse Resp BP Pulse Ox 04/02/20 19:53 97.1 F 90 17 110/51 L 96 - Problem List & Annotations (1) Dementia SNOMED Code(s): 06071764 Code(s): F03.90 - UNSPECIFIED DEMENTIA WITHOUT BEHAVIORAL DISTURBANCE Status: Acute Current Visit: Yes Qualifiers: Dementia type: Alzheimer's Alzheimer's disease onset: late-onset Dementia behavioral disturbance: with behavioral disturbance Qualified Code(s): G30.1 - Alzheimer's disease with late onset; F02.81 - Dementia in other diseases classified elsewhere with behavioral disturbance (2) Asymptomatic bacteriuria SNOMED Code(s): 254729356 Code(s): R82.71 - BACTERIURIA Status: Acute Current Visit: Yes - Problem List Review Problem List Initiated/Reviewed/Updated: Yes - My Orders Last 24 Hours: My Active Orders 04/02/20 20:43 CULTURE URINE [RM] Stat - Assessment/Plan Last 24 Hours: My Active Orders 04/02/20 20:43 CULTURE URINE [RM] Stat Plan: UA was positive for culture,though she has no symptoms.Increase Seroquel to 100 mg Total in 3 divided doses.Follow up with PCP
[2020-04-02 21:58] VITALS: BP 125/52; PULSE 81
== END 2020-04-02 21:05 | disposition home or self-care (01) ==
LOC: FB.ED 19:53
DX: F03.90 Unspecified dementia, unspecified severity, without behavioral disturbance, psychotic disturbance, mood disturbance, and anxiety (principal); E78.00 Pure hypercholesterolemia, unspecified; E03.9 Hypothyroidism, unspecified; Z79.82 Long term (current) use of aspirin; Z79.899 Other long term (current) drug therapy
CPT/HCPCS: 36415; 80053; 81001; 85025; 87086; 99283; 99284

== ENCOUNTER 2020-07-11 09:34 | Emergency (ER) | payer MEDICARE ==
--- NOTE | 2020-07-11 09:54 | EDM.PDOC ---
ED HPI GENERAL MEDICAL PROBLEM - General Chief Complaint: Lower Extremity Injury/Pain Stated Complaint: LEFT FOOT PAIN Time Seen by Provider: 07/11/20 09:51 Source of Information: Reports: Patient - History of Present Illness INITIAL COMMENTS - FREE TEXT/NARRATIVE: Patient developed left foot pain yesterday localized to the 1st MTP joint. Denies injury. No prior h/o gout. Onset Date: 07/10/20 Location: Reports: Lower Extremity, Left Quality: Reports: Dull Severity: Mild Left Foot Pain Score (Numeric/FACES): 4 - Related Data Allergies Allergy/AdvReac Type Severity Reaction Status Date / Time No Known Allergies Allergy Verified 11/28/19 11:59 Home Meds: Home Meds Aspirin [Ecotrin EC] 81 mg PO BEDTIME 05/09/15 [History] [place]-3S/DHA/Epa/Fish Oil [[place]-3 Fish Oil 1,000 mg Sfgl] 1,000 mg PO TID 05/09/15 [History] DULoxetine [Cymbalta] 60 mg PO DAILY 11/18/17 [History] Levothyroxine [Synthroid] 88 mcg PO DAILY 11/18/17 [History] QUEtiapine Fumarate [Seroquel] 50 mg PO DAILY 11/18/17 [History] clonazePAM [Klonopin] 0.5 mg PO BID 11/18/17 [History] Carboxymethylcellulose Sodium [Refresh Tears] 15 ml OP ASDIRECTED PRN 11/28/18 [History] DULoxetine [Cymbalta] 30 mg PO DAILY 11/28/18 [History] Memantine [Namenda] 10 mg PO DAILY 11/28/18 [History] Simvastatin [Zocor] 20 mg PO DAILY 11/28/18 [History] Indomethacin 25 mg PO TID PRN #30 capsule 07/11/20 [Rx] Melatonin 5 mg PO DAILY 07/11/20 [History] Mirtazapine 7.5 mg PO DAILY 07/11/20 [History] QUEtiapine [SEROquel] 25 mg PO BID 07/11/20 [History] polyethylene glycoL 3350 [Miralax] 17 gm PO DAILY 07/11/20 [History] Past Medical History HEENT History: Reports: Cataract, Hard of Hearing, Impaired Vision, Otitis Media Cardiovascular History: Reports: Arrhythmia, High Cholesterol, Pacemaker, SOB on Exertion, Syncope Respiratory History: Reports: Pneumonia, Recurrent, SOB, Other (See Below) Other Respiratory History: EMPHYSEMA, DYSPHAGIA Gastrointestinal History: Reports: Cholelithiasis Other Gastrointestinal History: DYSPHAGIA WITH CHOKING Genitourinary History: Reports: None TAKE OUT WAITRESS History: Reports: 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 - Infectious Disease History Infectious Disease History: Reports: Chicken Pox, Measles, Mumps - Past Surgical History Head Surgeries/Procedures: Reports: None HEENT Surgical History: Reports: Adenoidectomy, Cataract Surgery, Tonsillectomy Cardiovascular Surgical History: Reports: Pacer Respiratory Surgical History: Reports: None GI Surgical History: Reports: Appendectomy, Cholecystectomy, Colonoscopy, Polypectomy Female Surgical History: Reports: Breast Biopsy, D&C, Hysterectomy Endocrine Surgical History: Reports: None Neurological Surgical History: Reports: None Musculoskeletal Surgical History: Reports: None Oncologic Surgical History: Reports: None Dermatological Surgical History: Reports: None Social & Family History - Family History Family Medical History: No Pertinent Family History - Caffeine Use Caffeine Use: Reports: Coffee Review of Systems - Review of Systems Review Of Systems: Comprehensive ROS is negative, except as noted in HPI. ED EXAM, GENERAL - Physical Exam Exam: See Below Exam Limited By: No Limitations General Appearance: Alert, WD/WN, No Apparent Distress Head: Atraumatic, Normocephalic Respiratory/Chest: No Respiratory Distress Peripheral Pulses: 3+: Popliteal (L) Extremities: Other (Tenderness, swelling, and erythema to left foot overlying 1st MTP joint) Neurological: Alert, No Motor/Sensory Deficits Skin Exam: Intact Course - Vital Signs Last Recorded V/S: Last Vital Signs Temp 36.7 C 07/11/20 09:34 Pulse 87 07/11/20 09:34 Resp 16 07/11/20 09:34 BP 109/55 L 07/11/20 09:34 Pulse Ox 95 07/11/20 09:34 - Orders/Labs/Meds Orders: Active Orders 24 hr Category Date Time Status Foot Comp Min 3V Lt [CR] Stat Exams 07/11/20 09:51 Ordered Indomethacin [Indocin] Med 07/11/20 10:27 Once 25 mg PO ONETIME ONE - Radiology Interpretation Free Text/Narrative:: Left Foot XR: No fracture or dislocation. (ED provider interpretation) Departure - Departure Time of Disposition: 10:30 Disposition: Home, Self-Care 01 Condition: Good Clinical Impression: Acute gout of left foot Qualifiers: Gout etiology: unspecified cause Qualified Code(s): M10.9 - Gout, unspecified - Discharge Information *PRESCRIPTION DRUG MONITORING PROGRAM REVIEWED*: No *COPY OF PRESCRIPTION DRUG MONITORING REPORT IN PATIENT LUIGI: Not Applicable Prescriptions: Indomethacin 25 mg PO TID PRN #30 capsule PRN Reason: Pain Referrals: Camila Chanel NP [Primary Care Provider] - 2 Days Forms: ED Department Discharge Additional Instructions: Fill the Indomethacin prescription and take as directed. Follow up with your primary physician in 2-3 days. Return to the ER as needed. Sepsis Event Note (ED) - Focused Exam Vital Signs: Vital Signs Temp Pulse Resp BP Pulse Ox 07/11/20 09:34 36.7 C 87 16 109/55 L 95 - My Orders Last 24 Hours: My Active Orders 07/11/20 09:51 Foot Comp Min 3V Lt [CR] Stat 07/11/20 10:27 Indomethacin [Indocin] 25 mg PO ONETIME ONE - Assessment/Plan Last 24 Hours: My Active Orders 07/11/20 09:51 Foot Comp Min 3V Lt [CR] Stat 07/11/20 10:27 Indomethacin [Indocin] 25 mg PO ONETIME ONE
[2020-07-11 10:00] VITALS: BP 109/55; PULSE 87
[2020-07-11] MEDS ORDERED: Indomethacin 25 MG Cap PO ONE (10:27)
--- NOTE | 2020-07-12 10:42 | CR ---
INDICATION: Pain first metatarsophalangeal joint, no history of injury. LEFT FOOT: Three views of the left foot were obtained 07/11/20 - no comparison. Mild metatarsus varus deformity is noted with mild degenerative changes at the first metatarsophalangeal joint. Minimal degenerative changes are also suggested at the interphalangeal joint of the great toe. Minimal degenerative changes noted at the second metatarsophalangeal joint. Mild degenerative changes are noted at the fourth and fifth metatarsal tarsal joints and minimally at the first metatarsal tarsal joint. Along the lateral aspect of the proximal metaphysis of the proximal phalanx of the great toe there is a curvilinear bony density which could represent a tiny avulsion chip fracture fragment with very minimal distraction. Otherwise, no evidence of an acute fracture, dislocation, or other acute bone or joint abnormality was identified. Bone density appeared to be normal. IMPRESSION: 1. Question a minimal chip fracture fragment off the lateral aspect of the proximal metaphysis of the proximal phalanx of the great toe in adequate position and alignment. 2. 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 MTDD
== END 2020-07-11 10:50 | disposition home or self-care (01) ==
LOC: FB.ED 09:34
DX: M10.9 Gout, unspecified (principal); E78.00 Pure hypercholesterolemia, unspecified; Z95.0 Presence of cardiac pacemaker; E03.9 Hypothyroidism, unspecified; Z79.899 Other long term (current) drug therapy; Z79.82 Long term (current) use of aspirin
CPT/HCPCS: 73630-LT; 99283; A9270-GY

== ENCOUNTER 2020-07-23 18:36 | Inpatient (IN) | payer MEDICARE ==
--- NOTE | 2020-07-23 18:59 | EDM.PDOC ---
ED HPI GENERAL MEDICAL PROBLEM - General Time Seen by Provider: 07/23/20 18:45 Source of Information: Reports: Patient, EMS History Limitations: Reports: Other (Patient was somewhat confused and still has some slight confusion but she is really just very hard of hearing. She was able to give me history when the hearing problem was overcome) - History of Present Illness INITIAL COMMENTS - FREE TEXT/NARRATIVE: 80-year-old female who presents to the emergency department via ambulance from [facility] secondary to increased confusion and weakness. The patient is very hard of hearing and she is able to converse and tells me that she begin to feel somewhat short of breath last night and more weak. She denied any pain at that time and reports to me that she has no pain now and has had no pain all through the day. Specifically, she denies any chest pain or abdominal pain or back pain. She also denies any nausea or vomiting. She does report that she has had a decreased appetite and really has not had much to eat today or drink as well. She does state that she also does not really remember much of today. She states she feels weak all over. No fevers. No chills. She states she does have some swelling in both of her legs. Reports from the [facility] staff are that she has fallen several times today but I have no other information about these falls. The patient tells me that she has not fallen today or does not remember falling today. She tells me she has just felt very weak today. Her O2 saturation was 80% on room air and it increased to 93-95% on 3 L/m via nasal cannula. The EMS crew reports that she was quite "cantankerous" on the way in and would not answer any questions but with me she is answering questions and is quite calm and cooperative. There are no other associated signs or symptoms. There are no other modifying factors. Onset: Other (Last night) Duration: Getting Worse Location: Reports: Other (No pains. Just shortness of breath and weakness.) Quality: Reports: Other (Nonapplicable.) Severity: Moderate (to severe for the shortness of breath and weakness.) Improves with: Reports: Rest Worsens with: Reports: Other (Jevity.), Movement Context: Reports: Other (As above.) Associated Symptoms: Reports: Confusion, Shortness of Breath, Weakness Treatments SLAB TRIPPER: Reports: Other (see below) (Nothing.) - Related Data Allergies Allergy/AdvReac Type Severity Reaction Status Date / Time No Known Allergies Allergy Verified 11/28/19 11:59 Home Meds: Home Meds Aspirin [Ecotrin EC] 81 mg PO BEDTIME 05/09/15 [History] Andrews-3S/DHA/Epa/Fish Oil [Andrews-3 Fish Oil 1,000 mg Sfgl] 1,000 mg PO TID 05/09/15 [History] DULoxetine [Cymbalta] 60 mg PO DAILY 11/18/17 [History] Levothyroxine [Synthroid] 88 mcg PO DAILY 11/18/17 [History] QUEtiapine Fumarate [Seroquel] 50 mg PO DAILY 11/18/17 [History] clonazePAM [Klonopin] 0.5 mg PO BID 11/18/17 [History] Carboxymethylcellulose Sodium [Refresh Tears] 15 ml OP ASDIRECTED PRN 11/28/18 [History] DULoxetine [Cymbalta] 30 mg PO DAILY 11/28/18 [History] Memantine [Namenda] 10 mg PO DAILY 11/28/18 [History] Simvastatin [Zocor] 20 mg PO DAILY 11/28/18 [History] Indomethacin 25 mg PO TID PRN #30 capsule 07/11/20 [Rx] Melatonin 5 mg PO DAILY 07/11/20 [History] Mirtazapine 7.5 mg PO DAILY 07/11/20 [History] QUEtiapine [SEROquel] 25 mg PO BID 07/11/20 [History] polyethylene glycoL 3350 [Miralax] 17 gm PO DAILY 07/11/20 [History] Past Medical History HEENT History: Reports: Cataract, Hard of Hearing, Impaired Vision, Otitis Media Cardiovascular History: Reports: Arrhythmia, High Cholesterol, Pacemaker, SOB on Exertion, Syncope Respiratory History: Reports: Pneumonia, Recurrent, Other (See Below) Other Respiratory History: EMPHYSEMA, DYSPHAGIA Gastrointestinal History: Reports: Cholelithiasis Psychiatric History: Reports: Anxiety, Depression Endocrine/Metabolic History: Reports: Hypothyroidism Hematologic History: Reports: Anemia, Blood Transfusion(s) Oncologic (Cancer) History: Reports: Cervix Dermatologic History: Reports: Cellulitis Other Dermatologic History: CELLULITIS ON LEFT SIDE OF FACE AND LEFT EAR. - Infectious Disease History Infectious Disease History: Reports: Chicken Pox, Measles, Mumps - Past Surgical History HEENT Surgical History: Reports: Adenoidectomy, Cataract Surgery, Tonsillectomy Cardiovascular Surgical History: Reports: Pacer GI Surgical History: Reports: Appendectomy, Cholecystectomy, Colonoscopy, Polypectomy Female Surgical History: Reports: Breast Biopsy, D&C, Hysterectomy Social & Family History - Tobacco Use Tobacco Use Status *Q: Former Tobacco User (Quit 30 years ago) - Caffeine Use Caffeine Use: Reports: None - Alcohol Use Alcohol Use History: Yes Alcohol Use in Last Twelve Months: No Alcohol Use Comment: No alcohol use for the past 30 years. - Living Situation & Occupation Living situation: Reports: Alone Occupation: Retired Social History Comment: Lives by herself in [facility]. ED ROS GENERAL - Review of Systems Review Of Systems: See Below Constitutional: Reports: Malaise, Weakness. Denies: Fever HEENT: Reports: No Symptoms Respiratory: Reports: Shortness of Breath, Cough Cardiovascular: Reports: Dyspnea on Exertion. Denies: Chest Pain Endocrine: Reports: Fatigue. Denies: Polydypsia, Polyuria GI/Abdominal: Denies: Nausea, Vomiting : Denies: Dysuria, Hematuria Musculoskeletal: Denies: Neck Pain, Back Pain Skin: Denies: Diaphoresis, Wound Neurological: Reports: Confusion, Weakness (Generalized) Psychiatric: Reports: Confusion Hematologic/Lymphatic: Denies: Easy Bleeding, Easy Bruising ED EXAM, GENERAL - Physical Exam Exam: See Below Exam Limited By: No Limitations General Appearance: Alert, WD/WN, Moderate Distress (Appear short of breath.) Eye Exam: Bilateral Eye: EOMI, Normal Inspection (Sclera are anicteric) Ears: Normal External Exam, Hearing Loss (Very hard of hearing) Ear Exam: Bilateral Ear: Auricle Normal Nose: Normal Inspection, Normal Mucosa, No Blood Throat/Mouth: Normal Lips, Normal Voice, No Airway Compromise Head: Atraumatic, Normocephalic Neck: Normal Inspection, Supple, Non-Tender, Full Range of Motion Respiratory/Chest: Chest Non-Tender, Respiratory Distress (Some increased respiratory rate and work of breathing.), Rales (Bilaterally). No: Stridor Cardiovascular: Normal Peripheral Pulses, Regular Rate, Rhythm, No Murmur, Gallop/S3 Peripheral Pulses: 2+: Radial (L), Radial (R), Dorsalis Pedis (L), Dorsalis Pedis (R) GI/Abdominal: Normal Bowel Sounds, Soft, Non-Tender, No Mass Back Exam: Normal Inspection, Full Range of Motion. No: CVA Tenderness (R), CVA Tenderness (L) Extremities: Normal Range of Motion, Non-Tender, Normal Capillary Refill, Pedal Edema (Trace bilateral.) Neurological: Alert, CN II-XII Intact, Disoriented (to time. Oriented to place and person), Other (Seems somewhat off.) Psychiatric: Flat Affect Skin Exam: Warm, Dry, Intact, Normal Color, No Rash #1 Interpretation EKG Date: 07/23/20 Time: 18:36 Rhythm: NSR Rate (Beats/Min): 104 [place]kin: Normal P-Wave: Present QRS: Normal ST-T: Depressed (ST flattening and depression in inferior and lateral leads) QT: Normal Comparison: Change From Previous EKG (The ST flattening and depression in inferior and lateral leads was not present on an EKG performed on 11/28/2019. Otherwise, there are no significant changes.) Course - Vital Signs Last Recorded V/S: Last Vital Signs Temp 36.9 C 07/24/20 00:10 Pulse 93 07/24/20 00:10 Resp 20 07/24/20 00:10 BP 125/75 07/24/20 00:10 Pulse Ox 96 07/24/20 00:10 - Orders/Labs/Meds Orders: Active Orders 24 hr Category Date Time Status Admission Status [Patient Status] [ADT] Routine ADT 07/23/20 21:43 Active Cardiac Monitoring [RC] .As Directed Care 07/23/20 21:43 Active EKG Documentation Completion [RC] ASDIRECTED Care 07/23/20 18:36 Active Insert Urinary Catheter [OM.PC] ONETIME Care 07/23/20 19:30 Ordered Chest 1V Frontal [CR] Stat Exams 07/23/20 19:11 Taken CULTURE BLOOD [BC] Urgent Lab 07/23/20 19:25 Received CULTURE BLOOD [BC] Urgent Lab 07/23/20 21:15 Received CULTURE URINE [RM] Stat Lab 07/23/20 19:50 Received Sodium Chloride 0.9% [Saline Flush] Med 07/23/20 19:11 Active 10 ml FLUSH ASDIRECTED PRN Blood Culture x2 Reflex Set [OM.PC] Urgent Oth 07/23/20 21:03 Ordered Peripheral IV Insertion Adult [OM.PC] Routine Oth 07/23/20 19:11 Ordered EKG 12 Lead [EK] Routine Ther 07/23/20 18:36 Ordered EKG 12 Lead [EK] Routine Ther 07/23/20 19:11 Ordered Medication Orders Acetaminophen (Acetaminophen 325 Mg Tab) 650 mg PO Q4H PRN PRN Reason: Pain (Mild 1-3)/fever Albuterol/Ipratropium (Albuterol/Ipratropium 3.0-0.5 Mg/3 Ml Neb Soln) 3 ml NEB QIDRT ELIU Ceftriaxone Sodium (Ceftriaxone 1 Gm Vial) 1 gm IVPUSH Q24H [facility] Last Admin: 07/23/20 23:34 Dose: 1 gm Documented by: YRN Enoxaparin Sodium (Enoxaparin 40 Mg/0.4 Ml Syringe) 40 mg SUBCUT BEDTIME [facility] Sodium Chloride (Normal Saline) 1,000 mls @ 100 mls/hr IV ASDIRECTED ELIU Last Admin: 07/24/20 01:22 Dose: 100 mls/hr Documented by: MIGUEL A Azithromycin 500 mg/ Sodium (Chloride) 250 mls @ 250 mls/hr IV Q24H [facility] Last Admin: 07/23/20 23:42 Dose: 250 mls/hr Documented by: YRN Methylprednisolone Sodium Succinate (Methylprednisolone Sodium Succinate 40 Mg/1 Ml Sdv) 40 mg IVPUSH Q8H ELIU Ondansetron HCl (Ondansetron 4 Mg/2 Ml Sdv) 4 mg IV Q6H PRN PRN Reason: Nausea/Vomiting Sodium Chloride (Sodium Chloride 0.9% 10 Ml Syringe) 10 ml FLUSH ASDIRECTED PRN PRN Reason: Keep Vein Open Last Admin: 07/24/20 02:00 Dose: 10 ml Documented by: MIGUEL A Admin: 07/24/20 01:30 Dose: 10 ml Documented by: MIGUEL A Labs: Laboratory Tests 07/23/20 07/23/20 07/23/20 Range/Units 18:47 19:25 19:25 WBC 14.1 H (3.0-10.3) x10-3/uL RBC 4.08 (3.60-5.20) x10(6)uL Hgb 10.6 L (11.4-15.5) g/dL Hct 33.9 L (34.2-48.2) % MCV 83.2 (76.7-100.5) fL MCH 25.9 (23.9-33.9) pg MCHC 31.2 L (31.9-34.8) g/dL RDW 16.8 H (12.3-16.5) % Plt Count 256 (151-488) x10(3)uL MPV 9.1 (7.1-12.4) fL Neut % (Auto) 79.3 H (30.8-76.2) % Lymph % (Auto) 7.2 L (18.4-52.1) % [place] % (Auto) 11.7 (4.4-15.7) % Eos % (Auto) 1.3 (0.6-8.1) % Baso % (Auto) 0.5 (0.2-1.5) % Neut # (Auto) 11.2 H (1.5-6.3) x10-3/uL Lymph # (Auto) 1.0 (1.0-4.4) x10-3/uL [place] # (Auto) 1.6 H (0.3-1.0) x10-3/uL Eos # (Auto) 0.2 (0.0-0.8) x10-3/uL Baso # (Auto) 0.1 (0.0-0.1) x10-3/uL POC VBG pH (7.32-7.43) pH Units POC VBG pCO2 (41-51) mmHg POC VBG HCO3 (21-29) mmol/L VBG Base Excess (-2-3) mmol/L O2 Delivery Device Sodium 149 H (135-145) mmol/L Potassium 3.9 (3.5-5.3) mmol/L Chloride 110 (100-110) mmol/L Carbon Dioxide 32 (21-32) mmol/L BUN 31 H (7-18) mg/dL Creatinine 1.1 H (0.55-1.02) mg/dL Est Cr Clr Drug Dosing TNP Estimated GFR (MDRD) 48 L (>60) BUN/Creatinine Ratio 28.2 H (9-20) Glucose 138 H (80-116) mg/dL POC Glucose 116 (80-116) mg/dL Lactic Acid (0.4-2.0) mmol/L Calcium 7.9 L (8.6-10.2) mg/dL Magnesium 2.1 (1.8-2.5) mg/dL Total Bilirubin 0.4 (0.1-1.3) mg/dL AST 11 D (5-25) IU/L ALT 15 D (12-36) U/L Alkaline Phosphatase 101 (56-112) IU/L Troponin I (4.0-60.3) pg/mL C-Reactive Protein (0.5-0.9) mg/dL NT-Pro-B Natriuret Pep (<=450) pg/mL Total Protein 6.5 (6.0-8.0) g/dL Albumin 2.5 L (3.2-4.6) g/dL Globulin 4.0 g/dL Albumin/Globulin Ratio 0.6 Urine Color (YELLOW) Urine Appearance (CLEAR) Urine pH (5.0-6.5) Ur Specific [place] (1.010-1.025) Urine Protein (NEGATIVE) mg/dL Urine Glucose (UA) (NORMAL) mg/dL Urine Ketones (NEGATIVE) mg/dL Urine Occult Blood (NEGATIVE) Urine Nitrite (NEGATIVE) Urine Bilirubin (NEGATIVE) Urine Urobilinogen (NEGATIVE) mg/dL Ur Leukocyte Esterase (NEGATIVE) Urine RBC (0-5) Urine WBC (0-5) Ur Squamous Epith Cells (NS,R,O) Amorphous Sediment Urine Bacteria (NS) Urine Mucus (NS) SARS-CoV-2 RNA (JUDITH) (NEGATIVE) 07/23/20 07/23/20 07/23/20 Range/Units 19:25 19:25 19:50 WBC (3.0-10.3) x10-3/uL RBC (3.60-5.20) x10(6)uL Hgb (11.4-15.5) g/dL Hct (34.2-48.2) % MCV (76.7-100.5) fL MCH (23.9-33.9) pg MCHC (31.9-34.8) g/dL RDW (12.3-16.5) % Plt Count (151-488) x10(3)uL MPV (7.1-12.4) fL Neut % (Auto) (30.8-76.2) % Lymph % (Auto) (18.4-52.1) % [place] % (Auto) (4.4-15.7) % Eos % (Auto) (0.6-8.1) % Baso % (Auto) (0.2-1.5) % Neut # (Auto) (1.5-6.3) x10-3/uL Lymph # (Auto) (1.0-4.4) x10-3/uL [place] # (Auto) (0.3-1.0) x10-3/uL Eos # (Auto) (0.0-0.8) x10-3/uL Baso # (Auto) (0.0-0.1) x10-3/uL POC VBG pH 7.29 L (7.32-7.43) pH Units POC VBG pCO2 69 H (41-51) mmHg POC VBG HCO3 33 H (21-29) mmol/L VBG Base Excess 6 H (-2-3) mmol/L O2 Delivery Device Nasal cannula Sodium (135-145) mmol/L Potassium (3.5-5.3) mmol/L Chloride (100-110) mmol/L Carbon Dioxide (21-32) mmol/L BUN (7-18) mg/dL Creatinine (0.55-1.02) mg/dL Est Cr Clr Drug Dosing Estimated GFR (MDRD) (>60) BUN/Creatinine Ratio (9-20) Glucose (80-116) mg/dL POC Glucose (80-116) mg/dL Lactic Acid (0.4-2.0) mmol/L Calcium (8.6-10.2) mg/dL Magnesium (1.8-2.5) mg/dL Total Bilirubin (0.1-1.3) mg/dL AST (5-25) IU/L ALT (12-36) U/L Alkaline Phosphatase (56-112) IU/L Troponin I 7.0 (4.0-60.3) pg/mL C-Reactive Protein 27.4 H* (0.5-0.9) mg/dL NT-Pro-B Natriuret Pep 261 (<=450) pg/mL Total Protein (6.0-8.0) g/dL Albumin (3.2-4.6) g/dL Globulin g/dL Albumin/Globulin Ratio Urine Color (YELLOW) Urine Appearance (CLEAR) Urine pH (5.0-6.5) Ur Specific [place] (1.010-1.025) Urine Protein (NEGATIVE) mg/dL Urine Glucose (UA) (NORMAL) mg/dL Urine Ketones (NEGATIVE) mg/dL Urine Occult Blood (NEGATIVE) Urine Nitrite (NEGATIVE) Urine Bilirubin (NEGATIVE) Urine Urobilinogen (NEGATIVE) mg/dL Ur Leukocyte Esterase (NEGATIVE) Urine RBC (0-5) Urine WBC (0-5) Ur Squamous Epith Cells (NS,R,O) Amorphous Sediment Urine Bacteria (NS) Urine Mucus (NS) SARS-CoV-2 RNA (JUDITH) Negative (NEGATIVE) 07/23/20 07/23/20 Range/Units 19:50 21:15 WBC (3.0-10.3) x10-3/uL RBC (3.60-5.20) x10(6)uL Hgb (11.4-15.5) g/dL Hct (34.2-48.2) % MCV (76.7-100.5) fL MCH (23.9-33.9) pg MCHC (31.9-34.8) g/dL RDW (12.3-16.5) % Plt Count (151-488) x10(3)uL MPV (7.1-12.4) fL Neut % (Auto) (30.8-76.2) % Lymph % (Auto) (18.4-52.1) % [place] % (Auto) (4.4-15.7) % Eos % (Auto) (0.6-8.1) % Baso % (Auto) (0.2-1.5) % Neut # (Auto) (1.5-6.3) x10-3/uL Lymph # (Auto) (1.0-4.4) x10-3/uL [place] # (Auto) (0.3-1.0) x10-3/uL Eos # (Auto) (0.0-0.8) x10-3/uL Baso # (Auto) (0.0-0.1) x10-3/uL POC VBG pH (7.32-7.43) pH Units POC VBG pCO2 (41-51) mmHg POC VBG HCO3 (21-29) mmol/L VBG Base Excess (-2-3) mmol/L O2 Delivery Device Sodium (135-145) mmol/L Potassium (3.5-5.3) mmol/L Chloride (100-110) mmol/L Carbon Dioxide (21-32) mmol/L BUN (7-18) mg/dL Creatinine (0.55-1.02) mg/dL Est Cr Clr Drug Dosing Estimated GFR (MDRD) (>60) BUN/Creatinine Ratio (9-20) Glucose (80-116) mg/dL POC Glucose (80-116) mg/dL Lactic Acid 1.1 (0.4-2.0) mmol/L Calcium (8.6-10.2) mg/dL Magnesium (1.8-2.5) mg/dL Total Bilirubin (0.1-1.3) mg/dL AST (5-25) IU/L ALT (12-36) U/L Alkaline Phosphatase (56-112) IU/L Troponin I (4.0-60.3) pg/mL C-Reactive Protein (0.5-0.9) mg/dL NT-Pro-B Natriuret Pep (<=450) pg/mL Total Protein (6.0-8.0) g/dL Albumin (3.2-4.6) g/dL Globulin g/dL Albumin/Globulin Ratio Urine Color Yellow (YELLOW) Urine Appearance Clear (CLEAR) Urine pH 5.0 (5.0-6.5) Ur Specific [place] 1.025 (1.010-1.025) Urine Protein Negative (NEGATIVE) mg/dL Urine Glucose (UA) Normal (NORMAL) mg/dL Urine Ketones Negative (NEGATIVE) mg/dL Urine Occult Blood Negative (NEGATIVE) Urine Nitrite Negative (NEGATIVE) Urine Bilirubin Small H (NEGATIVE) Urine Urobilinogen 1 H (NEGATIVE) mg/dL Ur Leukocyte Esterase Small H (NEGATIVE) Urine RBC 0-5 (0-5) Urine WBC 0-5 (0-5) Ur Squamous Epith Cells Occasional (NS,R,O) Amorphous Sediment Moderate Urine Bacteria Few H (NS) Urine Mucus Few H (NS) SARS-CoV-2 RNA (JUDITH) (NEGATIVE) Meds: Medications Generic Name Dose Route Start Last Admin Trade Name Freq PRN Reason Stop Dose Admin Acetaminophen 650 mg 07/23/20 23:19 Acetaminophen 325 Mg Tab PO Q4H PRN Pain (Mild 1-3)/fever Albuterol/Ipratropium 3 ml 07/24/20 07:00 Albuterol/Ipratropium 3.0-0.5 Mg/3 Ml Peña WYATT QIDRT ELIU Ceftriaxone Sodium 1 gm 07/23/20 23:30 07/23/20 23:34 Ceftriaxone 1 Gm Vial IVPUSH 1 gm Q24H ELIU Administration Enoxaparin Sodium 40 mg 07/24/20 21:00 Enoxaparin 40 Mg/0.4 Ml Syringe SUBCUT BEDTIME ELIU Sodium Chloride 1,000 mls @ 100 mls/hr 07/23/20 23:30 07/24/20 01:22 Normal Saline IV 100 mls/hr ASDIRECTED ELIU Administration Azithromycin 500 mg/ Sodium 250 mls @ 250 mls/hr 07/23/20 23:30 07/23/20 23:42 Chloride IV 250 mls/hr Q24H ELIU Administration Methylprednisolone Sodium Succinate 40 mg 07/24/20 09:00 Methylprednisolone Sodium Succinate 40 Mg/1 Ml Sdv IVPUSH Q8H ELIU Ondansetron HCl 4 mg 07/23/20 23:19 Ondansetron 4 Mg/2 Ml Sdv IV Q6H PRN Nausea/Vomiting Sodium Chloride 10 ml 07/23/20 19:11 07/24/20 02:00 Sodium Chloride 0.9% 10 Ml Syringe FLUSH 10 ml ASDIRECTED PRN Administration Keep Vein Open Discontinued Medications Generic Name Dose Route Start Last Admin Trade Name Domonique PRN Reason Stop Dose Admin Albuterol/Ipratropium 3 ml 07/24/20 03:38 07/24/20 03:46 Albuterol/Ipratropium 3.0-0.5 Mg/3 Ml Peña WYATT 07/24/20 03:39 3 ml ONETIME ONE Administration Enoxaparin Sodium 40 mg 07/24/20 01:30 07/24/20 01:33 Enoxaparin 40 Mg/0.4 Ml Syringe SUBCUT 07/24/20 01:31 40 mg NOW ONE Administration Methylprednisolone Sodium Succinate 40 mg 07/23/20 23:30 07/24/20 01:21 Methylprednisolone Sodium Succinate 40 Mg/1 Ml Sdv IVPUSH 40 mg Q8H ELIU Administration - Radiology Interpretation Free Text/Narrative:: Portable chest x-ray shows bilateral lower lobe infiltrates with the right being greater than the left. - Re-Assessments/Exams Free Text/Narrative Re-Assessment/Exam: 07/23/20 20:15: The patient's blood tests did show an elevated white blood cell count. She has an elevated CRP. Her proBNP was normal. Her troponin was normal. Her BUN and creatinine ratio was elevated. Her venous blood gas did show a pH of 7.29 with PCO2 of 69. In the emergency department, she was given IV normal saline as a bolus and was placed on some metal oxygen. With the bolus and the subdural oxygen, her blood pressure improved into the 110 systolic range and her O2 saturations were 95% on 3 L/m via nasal cannula. She seemed to be much more alert and with it with her O2 saturations improved. Her chest x-ray does show bilateral lower lobe infiltrates. I had initially thought these represented decompensated CHF but with a normal proBNP and with her elevated inflammatory markers, I feel that these are most probably pneumonias. The patient does report a cough but it has been nonproductive. She is still denying any chest pain at present. Her rapid Covid test was negative as well. I will order a lactic acid and I will also order blood cultures 2 to be obtained. With the shins bilaterally pneumonias and the hypoxic and hypercapnic respiratory failure, the patient will need admission to the hospital. We are trying to get in touch with family members and we have tried to get a POLST from [facility]. 07/23/20 21:30: The patient's lactic acid was normal. Reevaluation of the patient does show that her pulse rate is in the 80s. Her O2 saturation remains 95% on 3 L/m via nasal cannula. Her blood pressure is in the 110 systolic range. She tells me that she feels better. She still has no chest pain. She does have a frequent cough that is not productive. I discussed CODE STATUS with the patient and she tells me that she would want to be a DNR/DNI and would not want any resuscitation if she had cardiopulmonary arrest. She is wanting treatment of reversible cause and would be agreeable to admission with IV antibiotics, IV fluids, nebulizer treatments and close monitoring. Therefore, I will admit the patient to [facility]. The plan of care to treat this will take longer than 2 midnight hospital stay and therefore I am placing the patient on inpatient status. The patient has asked me to discuss her case with her son, Morris. I will call him and really the patient's status to him at the patient's request. Care the patient will go to Dr. Godoy at 7 AM on 07/24/2020. 07/12/20 21:40: I did call and discuss the patient's diagnosis and treatment course with Morris, her son. I also answered his questions. He is in agreement with his mother being admitted to [facility]. Departure - Departure Time of Disposition: 21:43 Disposition: Admitted As Inpatient 65 Condition: Fair Clinical Impression: Acute respiratory failure with hypoxia and hypercapnia, Dehydration Bilateral pneumonia Qualifiers: Pneumonia type: due to unspecified organism Lung location: lower lobe of lung Qualified Code(s): J18.9 - Pneumonia, unspecified organism - Discharge Information Sepsis Event Note (ED) - Focused Exam Vital Signs: Vital Signs Temp Pulse Resp BP Pulse Ox 07/23/20 18:50 95 07/23/20 18:36 36.6 C 104 H 16 94/61 80 L - My Orders Last 24 Hours: My Active Orders 07/23/20 19:11 Chest 1V Frontal [CR] Stat Sodium Chloride 0.9% [Saline Flush] 10 ml FLUSH ASDIRECTED PRN Peripheral IV Insertion Adult [OM.PC] Routine EKG 12 Lead [EK] Routine 07/23/20 19:25 CULTURE BLOOD [BC] Urgent 07/23/20 19:30 Insert Urinary Catheter [OM.PC] ONETIME 07/23/20 19:50 CULTURE URINE [RM] Stat 07/23/20 21:03 Blood Culture x2 Reflex Set [OM.PC] Urgent 07/23/20 21:15 CULTURE BLOOD [BC] Urgent 07/23/20 21:43 Admission Status [Patient Status] [ADT] Routine Cardiac Monitoring [RC] .As Directed - Assessment/Plan Last 24 Hours: My Active Orders 07/23/20 19:11 Chest 1V Frontal [CR] Stat Sodium Chloride 0.9% [Saline Flush] 10 ml FLUSH ASDIRECTED PRN Peripheral IV Insertion Adult [OM.PC] Routine EKG 12 Lead [EK] Routine 07/23/20 19:25 CULTURE BLOOD [BC] Urgent 07/23/20 19:30 Insert Urinary Catheter [OM.PC] ONETIME 07/23/20 19:50 CULTURE URINE [RM] Stat 07/23/20 21:03 Blood Culture x2 Reflex Set [OM.PC] Urgent 07/23/20 21:15 CULTURE BLOOD [BC] Urgent 07/23/20 21:43 Admission Status [Patient Status] [ADT] Routine Cardiac Monitoring [RC] .As Directed
[2020-07-23 20:09] LABS: BASE EXCESS VENOUS,POC 6 mmol/L (-2-3); HCO3 VENOUS,POC 33 mmol/L (21-29); PCO2 VENOUS,POC 69 mmHg (41-51); PH VENOUS,POC 7.29 pH Units (7.32-7.43)
[2020-07-23] MEDS ORDERED: Acetaminophen 325 MG Tab PO PRN (23:19)
[2020-07-23] MEDS ORDERED: Ondansetron 4 MG/2 ML SDV IV PRN (23:19)
[2020-07-23] MEDS ORDERED: methylPREDNISolone Sodium Succinate 40 MG/1 ML SDV IVPUSH SCH (23:30)
[2020-07-23] MEDS ORDERED: Sodium Chloride 0.9% 1,000 ML IV SCH (23:30)
[2020-07-23] MEDS: cefTRIAXone 1 GM Vial IVPUSH SCH (23:34)
[2020-07-23] MEDS: Azithromycin 500 MG in Sodium Chloride 0.9% 250 ML IV SCH (23:42)
[2020-07-24] MEDS ORDERED: Enoxaparin 40 MG/0.4 ML Syringe SUBCUT ONE (01:30)
[2020-07-24] MEDS: Sodium Chloride 0.9% 10 ML Syringe FLUSH PRN ×2 (01:30→02:00)
[2020-07-24] MEDS ORDERED: Albuterol/Ipratropium 3.0-0.5 MG/3 ML Neb Soln NEB ONE (03:38)
[2020-07-24] MEDS ORDERED: Albuterol 0.083% 2.5 MG/3 ML Neb Soln NEB PRN (04:58)
[2020-07-24] MEDS ORDERED: Albuterol/Ipratropium 3.0-0.5 MG/3 ML Neb Soln NEB SCH (07:00)
[2020-07-24] MEDS ORDERED: Mirtazapine 15 MG Tab PO SCH (09:00)
[2020-07-24] MEDS ORDERED: methylPREDNISolone Sodium Succinate 40 MG/1 ML SDV IVPUSH SCH (09:00)
[2020-07-24] MEDS ORDERED: Furosemide 40 MG/4 ML VIAL IVPUSH ONE (09:04)
[2020-07-24] MEDS: QUEtiapine 25 MG Tab PO SCH ×2 (09:52→17:42)
[2020-07-24] MEDS: Memantine 10 MG Tab PO SCH (09:52)
[2020-07-24] MEDS: Aspirin 81 MG Tab.EC PO SCH (09:52)
[2020-07-24] MEDS: Polyethylene Glycol 3350 Powder 17 GM Packet PO SCH (09:54)
[2020-07-24] MEDS: DULoxetine 30 MG Cap PO SCH (10:08)
[2020-07-24] MEDS: Levothyroxine 88 MCG Tab PO SCH (10:08)
--- NOTE | 2020-07-24 10:25 | HP ---
ADMISSION DATE: 07/23/2020 CHIEF COMPLAINT: Weakness and falls. HISTORY OF PRESENT ILLNESS: Ms. Guardado is an 80-year-old resident of [facility] with confusion, weakness, and falling. She has a history of dementia with behavioral disorder, hypothyroidism, depression, pacemaker, and several surgeries. The patient is unable to give a clear history because of her dementia. However, she does specifically deny shortness of breath, chest pain, fever, or chills. She does state she has had a slight cough. No abdominal pain or diarrhea. She does state that her legs swell at times. PAST MEDICAL HISTORY: Dementia with behavioral disorder. She has had previous pneumonias. She has a pacemaker in place for cardiac arrhythmia. She has history of COPD, anxiety, depression, hypothyroidism, and history of anemia. She is status post T and A, bilateral cataract surgery, pacemaker implantation, appendectomy, and cholecystectomy with polypectomies. She has had benign breast biopsies and hysterectomy. MEDICATIONS: 1. Quetiapine 25 mg b.i.d. and 100 mg q.a.m. 2. MiraLAX 17 g daily. 3. Mirtazapine 7.5 mg at bedtime. 4. Memantine 10 mg daily. 5. Melatonin 5 mg at bedtime. 6. Levothyroxine 88 mcg daily. 7. Cymbalta 90 mg daily. 8. Aspirin 81 mg daily. 9. Simvastatin 20 mg daily. 10.Fish oil 1 daily. 11.Iron 325 mg daily. 12.Clonazepam 0.5 mg b.i.d. 13.Artificial Tears p.r.n. ALLERGIES: None. HABITS: Nonsmoker and nondrinker. FAMILY AND SOCIAL HISTORY: The patient lives at [facility]. Next of kin listed as Morris Guardado, son, in [place]. REVIEW OF SYSTEMS: Not reliably obtainable from the patient but negative for noted fever or chills. No nausea or vomiting. She has had a slight cough. No complaints of pain or diarrhea. She does give a history of ankle swelling. It is also positive by history for confusion and behavioral disorder with hallucinations. PHYSICAL EXAMINATION: GENERAL: She is awake and examined while lying in her bed. She is quite hard of hearing but does answer questions when asked. She has confusion and obviously poor memory. VITAL SIGNS: Blood pressure 139/46, pulse 91 and regular, respirations 24, and O2 saturation 91% on 2 L nasal cannula. This was 80% on room air in the emergency room. Weight 170 pounds, this compares to a weight of 150 pounds 4 months ago. SKIN: Shows no rash. There is an ecchymotic-appearing kaelyn on her left posterior flank. Mouth is dry. LUNGS: Clear with good air movement to the bases. HEART: Regular. No murmur or gallop heard. ABDOMEN: Soft and nontender. EXTREMITIES: Show 1+ edema at the sock lines. NEUROLOGIC: She is quite forgetful but cooperative and moves arms and legs spontaneously. LABORATORY DATA: White count 14,000, hemoglobin 10.6, MCV 83, and platelets 256. Sodium 149, potassium 3.9, BUN 26, creatinine 0.9, glucose 140, and calcium 7.6. Troponin negative. CRP 27, proBNP 261. Urinalysis is unremarkable. Chest x-ray shows mild cardiomegaly, increased from her previous x-ray with bilateral pleural effusions and infiltrate at the right base. ASSESSMENT: 1. An 80-year-old woman with weakness, falls, slight cough, and elevated blood parameters suggesting pneumonia. 2. Congestive heart failure. 3. Permanent pacemaker with history of arrhythmia. 4. Dementia. 5. Chronic obstructive pulmonary disease. 6. Hypothyroidism. 7. Depression. PLAN: She is admitted to the hospital. She is started on Rocephin and azithromycin for pneumonia. We will also diurese her with an anticipated goal weight down around 150 pounds again. We will provide palliative care measures for her underlying dementia and plan to return to [facility] when able. /[id number] CHITO/ANALILIAL
[2020-07-24] MEDS: Enoxaparin 40 MG/0.4 ML Syringe SUBCUT SCH (20:02)
[2020-07-24] MEDS: Melatonin 3 MG Tab PO SCH (20:03)
[2020-07-24] MEDS ORDERED: QUEtiapine 100 MG Tab PO SCH (21:00)
[2020-07-24] MEDS: cefTRIAXone 1 GM Vial IVPUSH SCH (22:50)
[2020-07-24] MEDS: Azithromycin 500 MG in Sodium Chloride 0.9% 250 ML IV SCH (22:52)
[2020-07-25] MEDS: Levothyroxine 88 MCG Tab PO SCH (08:26)
[2020-07-25] MEDS ORDERED: Furosemide 40 MG/4 ML VIAL IVPUSH ONE (08:31)
[2020-07-25] MEDS: Sodium Chloride 0.9% 10 ML Syringe FLUSH PRN ×2 (09:18→14:28)
[2020-07-25] MEDS: DULoxetine 30 MG Cap PO SCH (09:19)
[2020-07-25] MEDS: Memantine 10 MG Tab PO SCH (09:21)
[2020-07-25] MEDS: QUEtiapine 25 MG Tab PO SCH ×2 (09:21→16:03)
[2020-07-25] MEDS: Aspirin 81 MG Tab.EC PO SCH (09:21)
[2020-07-25] MEDS: Polyethylene Glycol 3350 Powder 17 GM Packet PO SCH (09:21)
--- NOTE | 2020-07-25 09:51 | PN ---
DATE SEEN: 07/25/2020 HISTORY: Ms. Guardado is an 80-year-old resident of [facility] with a history of dementia with behavioral disorder, weakness, falls, and hypothyroidism. She was admitted with a right lower lobe pneumonia and an exacerbation of congestive heart failure. She had a satisfactory night. She remained afebrile. Denies cough. She is, however, a poor historian. She is examined this morning in her bed. She appears comfortable, but is quite hard of hearing. PHYSICAL EXAMINATION: VITAL SIGNS: Blood pressure 112/53, pulse 89 and irregular in atrial fibrillation pattern, respirations normal, O2 saturation 93% on 2 L nasal cannula. Weight 170 pounds 11 ounces. This is up from 150 pounds 4 months ago. SKIN: Shows no sign of rash. HEENT: Shows her mouth to be dry. LUNGS: Have rales bilaterally. HEART: Irregular, in atrial fib, rate controlled. ABDOMEN: Soft and nontender. EXTREMITIES: Show 1+ edema at the ankles. LABORATORY DATA: Blood sugar 129 this morning. ASSESSMENT: 1. Right-sided and possibly bilateral lower lobe pneumonia. 2. Congestive heart failure. 3. Dementia with behavioral disorder. 4. Hypothyroidism. PLAN: We will continue with antibiotics. We will diurese her more aggressively. Continue her other medications. Increase activity as tolerated. We will plan to return her to [facility] when she is strong enough for discharge. I anticipate another 48 to 72 hours of acute hospital stay. We will continue to provide palliative care measures for her underlying dementia as well. /[id number] CHITO/MATT
[2020-07-25] MEDS: Albuterol/Ipratropium 3.0-0.5 MG/3 ML Neb Soln NEB SCH ×2 (10:30→17:44)
--- NOTE | 2020-07-25 10:51 | CR ---
INDICATION: Shortness of breath. Cough x2 weeks. CHEST ONE VIEW: AP portable upright view of the chest 07/23/20 was compared with 05/28/16 and revealed infiltration at the right lower lung field - lung base which may represent patchy pneumonia. Poor inspiration emphasizes markings and the heart size which is not grossly enlarged but could be somewhat enlarged. Overlying EKG leads are noted. The aorta is slightly tortuous with calcification in the arch. No definite CHF is seen. IMPRESSION: 1. Appearance of infiltrate at the right lower lung field - lung base especially compatible with pneumonia - correlate clinically. 2. Probable ASHD. MTDD
[2020-07-25] MEDS: Furosemide 40 MG/4 ML VIAL IVPUSH SCH (14:28)
[2020-07-25] MEDS: Enoxaparin 40 MG/0.4 ML Syringe SUBCUT SCH (21:05)
[2020-07-25] MEDS: Melatonin 3 MG Tab PO SCH (21:05)
[2020-07-25] MEDS: cefTRIAXone 1 GM Vial IVPUSH SCH (23:06)
[2020-07-25] MEDS: Azithromycin 500 MG in Sodium Chloride 0.9% 250 ML IV SCH (23:06)
[2020-07-26] MEDS: Albuterol/Ipratropium 3.0-0.5 MG/3 ML Neb Soln NEB SCH ×3 (02:23→17:25)
[2020-07-26] MEDS: Levothyroxine 88 MCG Tab PO SCH (06:34)
[2020-07-26] MEDS: DULoxetine 30 MG Cap PO SCH (08:05)
[2020-07-26] MEDS: Aspirin 81 MG Tab.EC PO SCH (08:05)
[2020-07-26] MEDS: Memantine 10 MG Tab PO SCH (08:06)
[2020-07-26] MEDS: Polyethylene Glycol 3350 Powder 17 GM Packet PO SCH (08:06)
[2020-07-26] MEDS: QUEtiapine 25 MG Tab PO SCH ×2 (08:10→15:52)
[2020-07-26] MEDS: Furosemide 40 MG/4 ML VIAL IVPUSH SCH ×2 (08:11→14:25)
--- NOTE | 2020-07-26 11:05 | PN ---
DATE SEEN: 07/26/2020 HISTORY: Ms. Guardado is an 80-year-old resident of [facility] with history of dementia with behavioral disorder, hypothyroidism, depression, and a pacemaker. She was admitted with shortness of breath and was found to have an exacerbation of CHF and bibasilar pneumonia. She has been treated with IV antibiotics and IV furosemide. She is examined and sitting at the edge of her bed this morning. She states she feels better and her breathing is easier today. PHYSICAL EXAMINATION: VITAL SIGNS: Blood pressure 113/50, pulse 84 and regular, respirations normal, O2 saturation 93% on 2 L nasal cannula, weight 168 pounds, this is down 2 pounds from admission. SKIN: Clear. She has ecchymotic patch in her left posterior flank area. HEENT: Mouth is dry. LUNGS: She is hard of hearing. Lungs have faint rales at the right lateral basal area of her lungs. Left side is clear. HEART: Regular without murmur or gallop. ABDOMEN: Soft and nontender. EXTREMITIES: Show no pitting edema at the ankles. ASSESSMENT: 1. Pneumonia, improving. 2. Congestive heart failure. 3. Dementia with behavioral disorder. 4. Hypothyroidism. PLAN: We will continue her IV antibiotics as well as her diuresis today. Laboratory this morning shows her white count to be down from 14,000 on admission to 9,600 today, hemoglobin 9.7. BUN 29, creatinine 1.0. BNP down from 650 to 472. I anticipated another 24 to 48 hours of acute care hospital stay. We will continue to provide palliative care measures for Ms. Guardado during this time and plan discharge to [facility] when able. /[id number] CHITO/MATT
[2020-07-26] MEDS: Azithromycin 250 MG Tab PO SCH (15:59)
--- NOTE | 2020-07-26 16:15 | CR ---
INDICATION: Aspiration pneumonia. SWALLOWING FUNCTION WITH VIDEO: 3 minutes 29 seconds video fluoroscopy time with DVD recording was utilized with various barium-tinged meals to evaluate the swallowing mechanism. Aspiration was noted with thin liquids and to a greater extent with nectar thickness liquids. No other penetration or aspiration was noted during examination with pudding, honey-thickness meals, as well as cracker meals, as well as cracker and bread meals. Banana was also utilized. No significant retention was noted in the vallecula. No significant spillage was noted. IMPRESSION: Thin liquids and nectar appear to be unsafe with the remainder of the meals utilized demonstrating otherwise normal swallowing mechanism. MTDD
--- NOTE | 2020-07-26 16:20 | CR ---
INDICATION: Followup pneumonia. CHEST TWO VIEWS: Two PA views and a lateral view of the chest 07/26/20 were compared with 07/23/20 and 05/28/16. There remains infiltrate at the right lung base - middle lobe and apparently lower lobe with some pleuritis present. No other acute process was suggested. The heart did not appear grossly enlarged with a loop recorder noted in place. The aorta is slightly tortuous with calcification in the arch. Somewhat flattened diaphragm leaf on the lateral view with slightly prominent AP diameter and hyperaeration raise question of COPD - correlate clinically. Bony structures are grossly intact. IMPRESSION: 1. Continued pneumonia at the right lung base. 2. ASHD with loop recorder in place. 3. Probable mild COPD - correlate clinically. MTDD
[2020-07-26] MEDS: Enoxaparin 40 MG/0.4 ML Syringe SUBCUT SCH (20:00)
[2020-07-26] MEDS: Amoxicillin/Clavulanate K 875-125 MG Tab PO SCH (20:01)
[2020-07-26] MEDS: Melatonin 3 MG Tab PO SCH (20:01)
[2020-07-27] MEDS: Albuterol/Ipratropium 3.0-0.5 MG/3 ML Neb Soln NEB SCH ×2 (01:46→09:12)
[2020-07-27] MEDS: Levothyroxine 88 MCG Tab PO SCH (06:34)
[2020-07-27] MEDS ORDERED: Furosemide 40 MG Tab PO SCH (08:15)
[2020-07-27] MEDS: Amoxicillin/Clavulanate K 875-125 MG Tab PO SCH (08:45)
[2020-07-27] MEDS: Aspirin 81 MG Tab.EC PO SCH (08:46)
[2020-07-27] MEDS: QUEtiapine 25 MG Tab PO SCH (08:46)
[2020-07-27] MEDS: Azithromycin 250 MG Tab PO SCH (08:46)
[2020-07-27] MEDS: DULoxetine 30 MG Cap PO SCH (08:47)
[2020-07-27] MEDS: Polyethylene Glycol 3350 Powder 17 GM Packet PO SCH (08:47)
[2020-07-27] MEDS: Memantine 10 MG Tab PO SCH (08:48)
--- NOTE | 2020-07-27 10:28 | DISCH ---
DISCHARGE DATE: 07/27/2020 PRIMARY FINAL DIAGNOSIS: Bibasilar pneumonia. OTHER DIAGNOSES: Congestive heart failure, dementia, hypothyroidism, depression, chronic obstructive pulmonary disease, behavioral disturbance, secondary dementia. OPERATIONS: None. COMPLICATIONS: None. SUMMARY: Ms. Guardado is an 80-year-old resident of [facility], who was admitted with shortness of breath and coughing. She was found to have bibasilar pneumonia. She also had evidence of CHF. The patient was treated with IV antibiotics and diuresed. Her weight decreased from 170 pounds 11 ounces on admission to 162 pounds. Her breathing significantly improved and her initial oxygen requirement of 3 L/min was weaned down to 2 L/min. The patient fairly got stronger, more alert, but remained confused. She is discharged to return to [facility] in improved condition. DISCHARGE MEDICATIONS: She is to take medications as follows: 1. Augmentin 875 mg b.i.d. x5 more days. 2. Seroquel 25 mg 0900 and 1600 hours, and 150 mg at bedtime. 3. Mirtazapine 7.5 mg at bedtime. 4. Furosemide 40 mg p.o. b.i.d. 5. Iron sulfate 325 mg daily. 6. Artificial Tears p.r.n. 7. Tylenol p.r.n. 8. MiraLax 1 scoopful daily. 9. Namenda 10 mg daily. 10.Melatonin 5 mg at bedtime. 11.Levothyroxine 88 mcg daily. 12.Duloxetine 90 mg daily. 13.Aspirin 81 mg daily. FOLLOWUP: She is to have followup with Camila Chanel in 2 weeks with recheck of her labs. She is to contact us sooner on a p.r.n. basis. /[id number] CHITO/MATT
[2020-07-27 11:24] VITALS: BP 145/121; PULSE 87
== END 2020-07-27 12:00 | disposition other institution (70) | DRG 193 ==
LOC: FB.ED 18:36 → FB.MS 22:37
PROVIDERS: ADMIT Emergency Medicine; ATTEND Family Medicine
DX: J18.9 Pneumonia, unspecified organism (principal); J96.01 Acute respiratory failure with hypoxia; J96.02 Acute respiratory failure with hypercapnia; F03.91 Unspecified dementia, unspecified severity, with behavioral disturbance; E03.9 Hypothyroidism, unspecified; Z20.822 Contact with and (suspected) exposure to COVID-19; F32.9 Major depressive disorder, single episode, unspecified; H54.7 Unspecified visual loss; Z66 Do not resuscitate; H91.90 Unspecified hearing loss, unspecified ear; E86.0 Dehydration; I50.9 Heart failure, unspecified; E78.00 Pure hypercholesterolemia, unspecified; D64.9 Anemia, unspecified; Z87.01 Personal history of pneumonia (recurrent); J43.1 Panlobular emphysema; R13.10 Dysphagia, unspecified; F41.9 Anxiety disorder, unspecified; Z95.0 Presence of cardiac pacemaker; Z90.49 Acquired absence of other specified parts of digestive tract; Z90.710 Acquired absence of both cervix and uterus; Z79.82 Long term (current) use of aspirin; Z79.890 Hormone replacement therapy; Z79.899 Other long term (current) drug therapy; Z87.891 Personal history of nicotine dependence; Z85.41 Personal history of malignant neoplasm of cervix uteri
CPT/HCPCS: 36415; 71045; 80053; 81001; 82947; 83605; 83735; 83880; 84484; 85025; 86140; 87040 ×2; 87086; 93005; 99285; U0002; 71046; 74230; 80048; 92611-GN; 93010; 94640; 94760; A9270-GY; J0456; J0696; J1650; J1940; J2920; J7030; J7050; J7620-GY

== ENCOUNTER 2020-08-04 13:42 | Inpatient (IN) | payer MEDICARE ==
[2020-08-04] MEDS: Sodium Chloride 0.9% 1,000 ML IV SCH ×2 (15:00→20:52)
--- NOTE | 2020-08-04 15:01 | CR ---
INDICATION: Dyspnea. CHEST ONE VIEW: AP upright portable view of the chest 08/04/20 was compared with 07/26/20 and 07/23/20. Infiltrate and effusion at the right lung base - pneumonia and pleuritis at the right lung base - appear to be resolving. A new acute process was not suggested. Cardiac loop recorder is again noted with the heart appearing normal in size. The aorta is tortuous with calcification in the arch. Overlying EKG leads are noted. IMPRESSION: 1. No new acute process. 2. Resolving pneumonia and pleuritis at the right lung base. 3. ASD aorta with loop recorder noted in place. MTDD
--- NOTE | 2020-08-04 15:05 | EDM.PDOC ---
ED HPI GENERAL MEDICAL PROBLEM - General Chief Complaint: Respiratory Problem Stated Complaint: CHF Time Seen by Provider: 08/04/20 14:00 Source of Information: Reports: Patient, Family History Limitations: Reports: No Limitations - History of Present Illness INITIAL COMMENTS - FREE TEXT/NARRATIVE: Patient is an 80 YO WF who presented to the ED because 2 weeks history of dry co ugh with associated dyspnea which has progressively got worse. ! week ago she started to have diarrhea but no nausea,vomiting or abdominal pain. There is no associated fever or chills but is feeling weak. She was admitted @ [facility] on 07/23 due to pneumonia and was discharged on 07/31 with augmentin. - Related Data Allergies Allergy/AdvReac Type Severity Reaction Status Date / Time No Known Allergies Allergy Verified 08/04/20 15:57 Home Meds: Home Meds Aspirin [Ecotrin EC] 81 mg PO 21 05/09/15 [History] Levothyroxine [Synthroid] 88 mcg PO DAILY 11/18/17 [History] Carboxymethylcellulose Sodium [Refresh Tears] 15 ml EYEBOTH TID 11/28/18 [History] DULoxetine [Cymbalta] 90 mg PO DAILY 11/28/18 [History] Memantine [Namenda] 10 mg PO DAILY 11/28/18 [History] Melatonin 5 mg PO BEDTIME 07/11/20 [History] Mirtazapine 7.5 mg PO BEDTIME 07/11/20 [History] QUEtiapine [SEROquel] 25 mg PO DAILY@0900 07/11/20 [History] polyethylene glycoL 3350 [Miralax] 17 gm PO DAILY 07/11/20 [History] Ferrous Sulfate 325 mg PO DAILY 07/24/20 [History] QUEtiapine [SEROquel XR] 150 mg PO BEDTIME 07/25/20 [History] QUEtiapine [SEROquel] 37.5 mg PO DAILY@1600 07/25/20 [History] Acetaminophen 650 mg PO Q4HR PRN 08/04/20 [History] ClonazePAM [KlonoPIN] 0.5 mg PO DAILY 08/04/20 [History] Furosemide [Lasix] 40 mg PO 09,12 08/04/20 [History] Past Medical History HEENT History: Reports: Cataract, Hard of Hearing, Impaired Vision, Otitis Media Cardiovascular History: Reports: Arrhythmia, High Cholesterol, Pacemaker, SOB on Exertion, Syncope Respiratory History: Reports: Pneumonia, Recurrent, Other (See Below) Other Respiratory History: EMPHYSEMA, DYSPHAGIA Gastrointestinal History: Reports: Cholelithiasis Other Gastrointestinal History: DYSPHAGIA WITH CHOKING Genitourinary History: Reports: None 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 - Infectious Disease History Infectious Disease History: Reports: Chicken Pox, Measles, Mumps - Past Surgical History Head Surgeries/Procedures: Reports: None HEENT Surgical History: Reports: Adenoidectomy, Cataract Surgery, Tonsillectomy Cardiovascular Surgical History: Reports: Pacer Respiratory Surgical History: Reports: None GI Surgical History: Reports: Appendectomy, Cholecystectomy, Colonoscopy, Polypectomy Female Surgical History: Reports: Breast Biopsy, D&C, Hysterectomy Endocrine Surgical History: Reports: None Neurological Surgical History: Reports: None Musculoskeletal Surgical History: Reports: None Oncologic Surgical History: Reports: None Dermatological Surgical History: Reports: None Social & Family History - Family History Family Medical History: No Pertinent Family History - Tobacco Use Tobacco Use Status *Q: Unknown Ever Used Tobacco Second Hand Smoke Exposure: No - Caffeine Use Caffeine Use: Reports: None - Living Situation & Occupation Living situation: Reports: Alone Occupation: Retired ED ROS GENERAL - Review of Systems Review Of Systems: See Below Constitutional: Reports: Weakness HEENT: Reports: No Symptoms Respiratory: Reports: Shortness of Breath, Cough Cardiovascular: Reports: No Symptoms Endocrine: Reports: No Symptoms GI/Abdominal: Reports: Diarrhea : Reports: No Symptoms Musculoskeletal: Reports: No Symptoms Skin: Reports: No Symptoms Neurological: Reports: No Symptoms Psychiatric: Reports: No Symptoms ED EXAM, GENERAL - Physical Exam Exam: See Below Exam Limited By: No Limitations General Appearance: Alert, No Apparent Distress Eye Exam: Bilateral Eye: PERRL Ears: Normal External Exam, Normal Canal Nose: Normal Inspection, Normal Mucosa Throat/Mouth: Normal Inspection, Normal Lips, Normal Teeth Head: Atraumatic, Normocephalic Neck: Normal Inspection, Supple, Non-Tender, Full Range of Motion Respiratory/Chest: No Respiratory Distress, Lungs Clear, Crackles Cardiovascular: Normal Peripheral Pulses, Regular Rate, Rhythm, No Edema GI/Abdominal: Normal Bowel Sounds, Soft, Non-Tender, No Organomegaly, No Distention Back Exam: Normal Inspection, Full Range of Motion Extremities: Normal Inspection, Normal Range of Motion, Non-Tender Neurological: Alert, Oriented, CN II-XII Intact, Normal Cognition, Normal Gait Psychiatric: Normal Affect Skin Exam: Warm Course - Vital Signs Text/Narrative:: Lab/EKG/CXR result was reviewed with patient and her family NS @ 125 ml/hr Levaquin 750 mg IV x1-per Dr Anita Leo x1 Solumedrol 125 mg IV x1 Last Recorded V/S: Last Vital Signs Temp 36.6 C 08/04/20 16:30 Pulse 87 08/04/20 16:30 Resp 20 08/04/20 16:30 BP 91/57 L 08/04/20 16:30 Pulse Ox 96 08/04/20 16:30 - Orders/Labs/Meds Orders: Active Orders 24 hr Category Date Time Status RT Aerosol Therapy [RC] ASDIRECTED Care 08/04/20 15:22 Active CULTURE BLOOD [BC] Urgent Lab 08/04/20 14:25 Received CULTURE BLOOD [BC] Urgent Lab 08/04/20 14:43 Received UA W/MICROSCOPIC [URIN] Stat Lab 08/04/20 14:05 Ordered Levofloxacin/Dextrose 5%-Water [Levaquin in D5W 500 MG/ Med 08/06/20 16:00 Active 100 ML] 100 ml IV Q48H Sodium Chloride 0.9% [Normal Saline] 1,000 ml Med 08/04/20 14:45 Active IV ASDIRECTED EKG 12 Lead [EK] Routine Ther 08/04/20 14:07 Stop Req Medication Orders Acetaminophen (Acetaminophen 325 Mg Tab) 650 mg PO Q4H PRN PRN Reason: Pain Albuterol/Ipratropium (Albuterol/Ipratropium 3.0-0.5 Mg/3 Ml Neb Soln) 3 ml INH Q4H PRN PRN Reason: Shortness Of Breath/wheezing Artificial Tears (Carboxymethylcellulose Sodium 0.5% Ophth Soln 15 Ml Bottle) 0 ml EYEBOTH TID ELIU Aspirin (Aspirin 81 Mg Tab.Ec) 81 mg PO 21 [facility] Clonazepam (Clonazepam 0.5 Mg Tab) 0.5 mg PO 09 [facility] Diphenhydramine HCl (Diphenhydramine 50 Mg/Ml Sdv) 12.5 mg IVPUSH Q48H [facility] Duloxetine HCl (Duloxetine 30 Mg Cap) 90 mg PO DAILY [facility] Enoxaparin Sodium (Enoxaparin 30 Mg/0.3 Ml Syringe) 30 mg SUBCUT Q24H [facility] Last Admin: 08/04/20 17:09 Dose: 30 mg Documented by: ARLEEN Ferrous Sulfate (Ferrous Sulfate 325 Mg Tab) 325 mg PO DAILY [facility] Sodium Chloride (Normal Saline) 1,000 mls @ 125 mls/hr IV ASDIRECTED [facility] Last Admin: 08/04/20 15:00 Dose: 125 mls/hr Documented by: DILIA Levofloxacin/Dextrose (Levaquin In D5w 500 Mg/100 Ml) 100 mls @ 100 mls/hr IV Q48H [facility] Levothyroxine Sodium (Levothyroxine 88 Mcg Tab) 88 mcg PO DAILY [facility] Melatonin (Melatonin 3 Mg Tab) 6 mg PO BEDTIME [facility] Memantine (Memantine 10 Mg Tab) 10 mg PO DAILY [facility] Mirtazapine (Mirtazapine 15 Mg Tab) 7.5 mg PO BEDTIME [facility] Potassium Chloride (Potassium Chloride 20 Meq Tab.Er) 20 meq PO TID [facility] Quetiapine Fumarate (Quetiapine 25 Mg Tab) 25 mg PO DAILY@0900 [facility] Quetiapine Fumarate (Quetiapine 25 Mg Tab) 37.5 mg PO DAILY@1600 [facility] Last Admin: 08/04/20 16:21 Dose: 37.5 mg Documented by: DILIA Quetiapine Fumarate (Quetiapine 50 Mg Tab) 150 mg PO BEDTIME [facility] Labs: Laboratory Tests 08/04/20 08/04/20 08/04/20 Range/Units 14:25 14:25 14:25 WBC 10.3 (3.0-10.3) x10-3/uL RBC 4.69 (3.60-5.20) x10(6)uL Hgb 12.2 (11.4-15.5) g/dL Hct 39.9 (34.2-48.2) % MCV 85.1 (76.7-100.5) fL MCH 26.1 (23.9-33.9) pg MCHC 30.7 L (31.9-34.8) g/dL RDW 17.6 H (12.3-16.5) % Plt Count 380 (151-488) x10(3)uL MPV 9.9 (7.1-12.4) fL Neut % (Auto) 74.2 (30.8-76.2) % Lymph % (Auto) 14.7 L (18.4-52.1) % [place] % (Auto) 7.5 (4.4-15.7) % Eos % (Auto) 2.8 (0.6-8.1) % Baso % (Auto) 0.8 (0.2-1.5) % Neut # (Auto) 7.7 H (1.5-6.3) x10-3/uL Lymph # (Auto) 1.5 (1.0-4.4) x10-3/uL [place] # (Auto) 0.8 (0.3-1.0) x10-3/uL Eos # (Auto) 0.3 (0.0-0.8) x10-3/uL Baso # (Auto) 0.1 (0.0-0.1) x10-3/uL Sodium 148 H (135-145) mmol/L Potassium 2.7 L* (3.5-5.3) mmol/L Chloride 102 D (100-110) mmol/L Carbon Dioxide 39 H (21-32) mmol/L BUN 36 H (7-18) mg/dL Creatinine 1.9 H (0.55-1.02) mg/dL Est Cr Clr Drug Dosing 18.37 mL/min Estimated GFR (MDRD) 25 L (>60) BUN/Creatinine Ratio 18.9 (9-20) Glucose 218 H D (80-116) mg/dL Lactic Acid (0.4-2.0) mmol/L Calcium 8.9 (8.6-10.2) mg/dL Total Bilirubin 0.7 (0.1-1.3) mg/dL AST 112 H D (5-25) IU/L ALT 51 H D (12-36) U/L Alkaline Phosphatase 302 H (56-112) IU/L Troponin I 12.4 (4.0-60.3) pg/mL C-Reactive Protein (0.5-0.9) mg/dL NT-Pro-B Natriuret Pep 214 (<=450) pg/mL Total Protein 7.0 (6.0-8.0) g/dL Albumin 3.0 L (3.2-4.6) g/dL Globulin 4.0 g/dL Albumin/Globulin Ratio 0.8 TSH, Ultra Sensitive (0.36-3.74) IU/mL SARS-CoV-2 RNA (JUDITH) (NEGATIVE) 08/04/20 08/04/20 08/04/20 Range/Units 14:25 14:25 14:25 WBC (3.0-10.3) x10-3/uL RBC (3.60-5.20) x10(6)uL Hgb (11.4-15.5) g/dL Hct (34.2-48.2) % MCV (76.7-100.5) fL MCH (23.9-33.9) pg MCHC (31.9-34.8) g/dL RDW (12.3-16.5) % Plt Count (151-488) x10(3)uL MPV (7.1-12.4) fL Neut % (Auto) (30.8-76.2) % Lymph % (Auto) (18.4-52.1) % [place] % (Auto) (4.4-15.7) % Eos % (Auto) (0.6-8.1) % Baso % (Auto) (0.2-1.5) % Neut # (Auto) (1.5-6.3) x10-3/uL Lymph # (Auto) (1.0-4.4) x10-3/uL [place] # (Auto) (0.3-1.0) x10-3/uL Eos # (Auto) (0.0-0.8) x10-3/uL Baso # (Auto) (0.0-0.1) x10-3/uL Sodium (135-145) mmol/L Potassium (3.5-5.3) mmol/L Chloride (100-110) mmol/L Carbon Dioxide (21-32) mmol/L BUN (7-18) mg/dL Creatinine (0.55-1.02) mg/dL Est Cr Clr Drug Dosing mL/min Estimated GFR (MDRD) (>60) BUN/Creatinine Ratio (9-20) Glucose (80-116) mg/dL Lactic Acid 3.2 H* (0.4-2.0) mmol/L Calcium (8.6-10.2) mg/dL Total Bilirubin (0.1-1.3) mg/dL AST (5-25) IU/L ALT (12-36) U/L Alkaline Phosphatase (56-112) IU/L Troponin I (4.0-60.3) pg/mL C-Reactive Protein 4.0 H* (0.5-0.9) mg/dL NT-Pro-B Natriuret Pep (<=450) pg/mL Total Protein (6.0-8.0) g/dL Albumin (3.2-4.6) g/dL Globulin g/dL Albumin/Globulin Ratio TSH, Ultra Sensitive 3.14 (0.36-3.74) IU/mL SARS-CoV-2 RNA (JUDITH) (NEGATIVE) 08/04/20 Range/Units 14:45 WBC (3.0-10.3) x10-3/uL RBC (3.60-5.20) x10(6)uL Hgb (11.4-15.5) g/dL Hct (34.2-48.2) % MCV (76.7-100.5) fL MCH (23.9-33.9) pg MCHC (31.9-34.8) g/dL RDW (12.3-16.5) % Plt Count (151-488) x10(3)uL MPV (7.1-12.4) fL Neut % (Auto) (30.8-76.2) % Lymph % (Auto) (18.4-52.1) % [place] % (Auto) (4.4-15.7) % Eos % (Auto) (0.6-8.1) % Baso % (Auto) (0.2-1.5) % Neut # (Auto) (1.5-6.3) x10-3/uL Lymph # (Auto) (1.0-4.4) x10-3/uL [place] # (Auto) (0.3-1.0) x10-3/uL Eos # (Auto) (0.0-0.8) x10-3/uL Baso # (Auto) (0.0-0.1) x10-3/uL Sodium (135-145) mmol/L Potassium (3.5-5.3) mmol/L Chloride (100-110) mmol/L Carbon Dioxide (21-32) mmol/L BUN (7-18) mg/dL Creatinine (0.55-1.02) mg/dL Est Cr Clr Drug Dosing mL/min Estimated GFR (MDRD) (>60) BUN/Creatinine Ratio (9-20) Glucose (80-116) mg/dL Lactic Acid (0.4-2.0) mmol/L Calcium (8.6-10.2) mg/dL Total Bilirubin (0.1-1.3) mg/dL AST (5-25) IU/L ALT (12-36) U/L Alkaline Phosphatase (56-112) IU/L Troponin I (4.0-60.3) pg/mL C-Reactive Protein (0.5-0.9) mg/dL NT-Pro-B Natriuret Pep (<=450) pg/mL Total Protein (6.0-8.0) g/dL Albumin (3.2-4.6) g/dL Globulin g/dL Albumin/Globulin Ratio TSH, Ultra Sensitive (0.36-3.74) IU/mL SARS-CoV-2 RNA (JUDITH) Negative (NEGATIVE) Meds: Medications Generic Name Dose Route Start Last Admin Trade Name Freq PRN Reason Stop Dose Admin Acetaminophen 650 mg 08/04/20 16:02 Acetaminophen 325 Mg Tab PO Q4H PRN Pain Albuterol/Ipratropium 3 ml 08/04/20 16:26 Albuterol/Ipratropium 3.0-0.5 Mg/3 Ml Neb Soln INH Q4H PRN Shortness Of Breath/wheezing Artificial Tears 0 ml 08/04/20 21:00 Carboxymethylcellulose Sodium 0.5% Ophth Soln 15 Ml Bottle EYEBOTH TID ELIU Aspirin 81 mg 08/04/20 21:00 Aspirin 81 Mg Tab.Ec PO ELIU Clonazepam 0.5 mg 08/05/20 09:00 Clonazepam 0.5 Mg Tab PO 09 ELIU Diphenhydramine HCl 12.5 mg 08/06/20 15:30 Diphenhydramine 50 Mg/Ml Sdv IVPUSH Q48H ELIU Duloxetine HCl 90 mg 08/05/20 09:00 Duloxetine 30 Mg Cap PO DAILY [facility] Enoxaparin Sodium 30 mg 08/04/20 16:30 08/04/20 17:09 Enoxaparin 30 Mg/0.3 Ml Syringe SUBCUT 30 mg Q24H ELIU Administration Ferrous Sulfate 325 mg 08/05/20 09:00 Ferrous Sulfate 325 Mg Tab PO DAILY ELIU Sodium Chloride 1,000 mls @ 125 mls/hr 08/04/20 14:45 08/04/20 15:00 Normal Saline IV 125 mls/hr ASDIRECTED [facility] Administration Levofloxacin/Dextrose 100 mls @ 100 mls/hr 08/06/20 16:00 Levaquin In D5w 500 Mg/100 Ml IV Q48H [facility] Levothyroxine Sodium 88 mcg 08/05/20 09:00 Levothyroxine 88 Mcg Tab PO DAILY [facility] Melatonin 6 mg 08/04/20 21:00 Melatonin 3 Mg Tab PO BEDTIME [facility] Memantine 10 mg 08/05/20 09:00 Memantine 10 Mg Tab PO DAILY [facility] Mirtazapine 7.5 mg 08/04/20 21:00 Mirtazapine 15 Mg Tab PO BEDTIME [facility] Potassium Chloride 20 meq 08/04/20 21:00 Potassium Chloride 20 Meq Tab.Er PO TID [facility] Quetiapine Fumarate 25 mg 08/05/20 09:00 Quetiapine 25 Mg Tab PO DAILY@0900 [facility] Quetiapine Fumarate 37.5 mg 08/04/20 16:00 08/04/20 16:21 Quetiapine 25 Mg Tab PO 37.5 mg DAILY@1600 [facility] Administration Quetiapine Fumarate 150 mg 08/04/20 21:00 Quetiapine 50 Mg Tab PO BEDTIME ELIU Discontinued Medications Generic Name Dose Route Start Last Admin Trade Name Freq PRN Reason Stop Dose Admin Albuterol/Ipratropium 3 ml 08/04/20 15:20 08/04/20 15:37 Albuterol/Ipratropium 3.0-0.5 Mg/3 Ml Neb Soln NEB 08/04/20 15:21 3 ml ONETIME ONE Administration Diphenhydramine HCl 12.5 mg 08/04/20 17:00 08/04/20 17:07 Diphenhydramine 50 Mg/Ml Sdv IVPUSH 08/04/20 17:01 12.5 mg ONETIME ONE Administration Piperacillin Sod/Tazobactam 50 mls @ 100 mls/hr 08/04/20 15:30 08/04/20 17:14 Sod 3.375 gm/ Sodium Chloride IV Not Given Q6H ELIU Levofloxacin/Dextrose 750 mg/ 150 mls @ 100 mls/hr 08/04/20 15:45 08/04/20 15:57 Premix IV 08/04/20 17:14 100 mls/hr ONETIME ONE Administration Methylprednisolone Sodium Succinate 125 mg 08/04/20 15:30 08/04/20 15:37 Methylprednisolone Sodium Succinate 125 Mg/2 Ml Sdv IVPUSH 125 mg DAILY ELIU Administration Departure - Departure Time of Disposition: 15:30 Disposition: Admitted As Inpatient 65 Condition: Good Clinical Impression: COPD exacerbation, Hypokalemia, Acute kidney failure, Dehydration - Discharge Information Sepsis Event Note (ED) - Evaluation Sepsis Screening Result: Possible Sepsis Risk - Focused Exam Vital Signs: Vital Signs Temp Pulse Resp BP Pulse Ox 08/04/20 15:31 36.7 C 92 20 136/73 94 L 08/04/20 15:30 92 20 118/68 94 L 08/04/20 15:00 95 18 124/76 93 L 08/04/20 14:30 97 22 H 102/78 95 08/04/20 14:00 97 20 102/78 95 08/04/20 13:54 36.6 C 102 H 22 H 124/85 88 L - My Orders Last 24 Hours: My Active Orders 08/04/20 14:05 UA W/MICROSCOPIC [URIN] Stat 08/04/20 14:07 EKG 12 Lead [EK] Routine 08/04/20 14:25 CULTURE BLOOD [BC] Urgent 08/04/20 14:43 CULTURE BLOOD [BC] Urgent 08/04/20 14:45 Sodium Chloride 0.9% [Normal Saline] 1,000 ml IV ASDIRECTED 08/04/20 15:22 RT Aerosol Therapy [RC] ASDIRECTED - Assessment/Plan Last 24 Hours: My Active Orders 08/04/20 14:05 UA W/MICROSCOPIC [URIN] Stat 08/04/20 14:07 EKG 12 Lead [EK] Routine 08/04/20 14:25 CULTURE BLOOD [BC] Urgent 08/04/20 14:43 CULTURE BLOOD [BC] Urgent 08/04/20 14:45 Sodium Chloride 0.9% [Normal Saline] 1,000 ml IV ASDIRECTED 08/04/20 15:22 RT Aerosol Therapy [RC] ASDIRECTED
[2020-08-04] MEDS ORDERED: Albuterol/Ipratropium 3.0-0.5 MG/3 ML Neb Soln NEB ONE (15:20)
[2020-08-04] MEDS ORDERED: Piperacillin/Tazobactam 3.375 GM in Sodium Chloride 0.9% 50 ML IV SCH (15:30)
[2020-08-04] MEDS ORDERED: methylPREDNISolone Sodium Succinate 125 MG/2 ML SDV IVPUSH SCH (15:30)
[2020-08-04] MEDS ORDERED: Levofloxacin/Dextrose 5%-Water 750 MG in Premix Bag 1 BAG IV ONE (15:45)
[2020-08-04] MEDS ORDERED: Acetaminophen 325 MG Tab PO PRN (16:02)
[2020-08-04] MEDS: QUEtiapine 25 MG Tab PO SCH (16:21)
[2020-08-04] MEDS ORDERED: Albuterol/Ipratropium 3.0-0.5 MG/3 ML Neb Soln INH PRN (16:26)
[2020-08-04] MEDS ORDERED: diphenhydrAMINE 50 MG/ML SDV IVPUSH ONE (17:00)
[2020-08-04] MEDS: Enoxaparin 30 MG/0.3 ML Syringe SUBCUT SCH (17:09)
--- NOTE | 2020-08-04 17:17 | PCM.HP.2 ---
H&P History of Present Illness - General Date of Service: 08/04/20 Admit Problem/Dx: Admission Diagnosis/Problem Admission Diagnosis/Problem Chronic obstructive pulmonary disease Source of Information: Family - History of Present Illness Initial Comments - Free Text/Narative: Belinda present to ER today by ambulance for worsening shortness of breath, confusion and incontinence. Home Health nurse and family saw her Saturday and plan was to move her to care suites at [facility] as she was falling more and felt she needed more assistance. Family said she looked fine on Saturday and did not get a call about anything until [facility] called today notifying them that she was being taken to ER. She was just discharged 07/27 for pneumonia, finished antibiotics Sat/Sat this week was on Azithromycin and Rocephin. She was discharged with home oxygen which was new for her and part of reason that she's been falling more. No fevers, cough. Diarrhea with recent antibiotics course. ROS limited due to hard of hearing and confusion. Hypotensive on arrival, corrected with IV fluids. ER course: WBC normal at 10.3 with no left shift, CRP 4.0, Lactic acid 3.2, K 2.7, Cr 1.9(normal on 07/27), BUN 36. Discharged on 2.5 L of oxygen by nasal cannula, when she arrived was 88% was turned up to 4L, came to floor on 3L with saturations 93%. Chest x-ray showed resolving pneumonia. COVID negative. Afebrile. Troponin negative. BNP 214. - Related Data Allergies/Adverse Reactions: Allergies Allergy/AdvReac Type Severity Reaction Status Date / Time No Known Allergies Allergy Verified 08/04/20 15:57 Home Medications: Home Meds Aspirin [Ecotrin EC] 81 mg PO 21 05/09/15 [History] Levothyroxine [Synthroid] 88 mcg PO DAILY 11/18/17 [History] Carboxymethylcellulose Sodium [Refresh Tears] 15 ml EYEBOTH TID 11/28/18 [History] DULoxetine [Cymbalta] 90 mg PO DAILY 11/28/18 [History] Memantine [Namenda] 10 mg PO DAILY 11/28/18 [History] Melatonin 5 mg PO BEDTIME 07/11/20 [History] Mirtazapine 7.5 mg PO BEDTIME 07/11/20 [History] QUEtiapine [SEROquel] 25 mg PO DAILY@0900 07/11/20 [History] polyethylene glycoL 3350 [Miralax] 17 gm PO DAILY 07/11/20 [History] Ferrous Sulfate 325 mg PO DAILY 07/24/20 [History] QUEtiapine [SEROquel XR] 150 mg PO BEDTIME 07/25/20 [History] QUEtiapine [SEROquel] 37.5 mg PO DAILY@1600 07/25/20 [History] Acetaminophen 650 mg PO Q4HR PRN 08/04/20 [History] ClonazePAM [KlonoPIN] 0.5 mg PO DAILY 08/04/20 [History] Furosemide [Lasix] 40 mg PO ,12 08/04/20 [History] Past Medical History HEENT History: Reports: Cataract, Hard of Hearing, Impaired Vision, Otitis Media Cardiovascular History: Reports: Arrhythmia, High Cholesterol, Pacemaker, SOB on Exertion, Syncope Respiratory History: Reports: Pneumonia, Recurrent, Other (See Below) Other Respiratory History: EMPHYSEMA, DYSPHAGIA Gastrointestinal History: Reports: Cholelithiasis Other Gastrointestinal History: DYSPHAGIA WITH CHOKING Genitourinary History: Reports: None 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 - Infectious Disease History Infectious Disease History: Reports: Chicken Pox, Measles, Mumps - Past Surgical History Head Surgeries/Procedures: Reports: None HEENT Surgical History: Reports: Adenoidectomy, Cataract Surgery, Tonsillectomy Cardiovascular Surgical History: Reports: Pacer Respiratory Surgical History: Reports: None GI Surgical History: Reports: Appendectomy, Cholecystectomy, Colonoscopy, Polypectomy Female Surgical History: Reports: Breast Biopsy, D&C, Hysterectomy Endocrine Surgical History: Reports: None Neurological Surgical History: Reports: None Musculoskeletal Surgical History: Reports: None Oncologic Surgical History: Reports: None Dermatological Surgical History: Reports: None Social & Family History - Family History Family Medical History: No Pertinent Family History - Tobacco Use Tobacco Use Status *Q: Never Tobacco User Second Hand Smoke Exposure: No - Caffeine Use Caffeine Use: Reports: None - Recreational Drug Use Recreational Drug Use: No - Living Situation & Occupation Living situation: Reports: Alone Occupation: Retired H&P Review of Systems - Review of Systems: Review Of Systems: Unable To Obtain Reason Not Obtained: limited due to hard of hearing, confusion Free Text/Narrative: history obtained from family Exam - Exam Exam: See Below - Vital Signs Vital Signs: Last Vital Signs Temp 98.1 F 08/04/20 15:31 Pulse 88 08/04/20 16:02 Resp 22 H 08/04/20 16:02 BP 136/73 08/04/20 16:02 Pulse Ox 90 L 08/04/20 16:02 Weight: 156 lb 3.2 oz - Exam Quality Assessment: Supplemental Oxygen (3L) General: Alert, Oriented (person, place), Cooperative. No: Mild Distress HEENT: PERRLA, Conjunctiva Clear. No: Hearing Intact, Mucosa Moist & [place] Neck: Trachea Midline Lungs: Clear to Auscultation, Normal Respiratory Effort, Decreased Breath Sounds (bibasilar). No: Crackles, Wheezing Cardiovascular: Regular Rate, Regular Rhythm, Systolic Murmur GI/Abdominal Exam: Normal Bowel Sounds, Soft, Non-Tender, No Distention (Female) Exam: Deferred Rectal (Female) Exam: Deferred Extremities: No Pedal Edema, Redness (along vein with IV, patient denies itching or pain) Peripheral Pulses: 2+: Radial (L), Radial (R) Skin: Ecchymosis (right eye, healing) Neuro Extensive - Mental Status: Disorientation to Time, Memory Loss-Recent Events, Slow Response to Commands - Patient Data Lab Results Last 24 hrs: Laboratory Results - last 24 hr 08/04/20 08/04/20 08/04/20 Range/Units 14:25 14:25 14:25 WBC 10.3 (3.0-10.3) x10-3/uL RBC 4.69 (3.60-5.20) x10(6)uL Hgb 12.2 (11.4-15.5) g/dL Hct 39.9 (34.2-48.2) % MCV 85.1 (76.7-100.5) fL MCH 26.1 (23.9-33.9) pg MCHC 30.7 L (31.9-34.8) g/dL RDW 17.6 H (12.3-16.5) % Plt Count 380 (151-488) x10(3)uL MPV 9.9 (7.1-12.4) fL Neut % (Auto) 74.2 (30.8-76.2) % Lymph % (Auto) 14.7 L (18.4-52.1) % [place] % (Auto) 7.5 (4.4-15.7) % Eos % (Auto) 2.8 (0.6-8.1) % Baso % (Auto) 0.8 (0.2-1.5) % Neut # (Auto) 7.7 H (1.5-6.3) x10-3/uL Lymph # (Auto) 1.5 (1.0-4.4) x10-3/uL [place] # (Auto) 0.8 (0.3-1.0) x10-3/uL Eos # (Auto) 0.3 (0.0-0.8) x10-3/uL Baso # (Auto) 0.1 (0.0-0.1) x10-3/uL Sodium 148 H (135-145) mmol/L Potassium 2.7 L* (3.5-5.3) mmol/L Chloride 102 D (100-110) mmol/L Carbon Dioxide 39 H (21-32) mmol/L BUN 36 H (7-18) mg/dL Creatinine 1.9 H (0.55-1.02) mg/dL Est Cr Clr Drug Dosing 18.37 mL/min Estimated GFR (MDRD) 25 L (>60) BUN/Creatinine Ratio 18.9 (9-20) Glucose 218 H D (80-116) mg/dL Lactic Acid (0.4-2.0) mmol/L Calcium 8.9 (8.6-10.2) mg/dL Total Bilirubin 0.7 (0.1-1.3) mg/dL AST 112 H D (5-25) IU/L ALT 51 H D (12-36) U/L Alkaline Phosphatase 302 H (56-112) IU/L Troponin I 12.4 (4.0-60.3) pg/mL C-Reactive Protein (0.5-0.9) mg/dL NT-Pro-B Natriuret Pep 214 (<=450) pg/mL Total Protein 7.0 (6.0-8.0) g/dL Albumin 3.0 L (3.2-4.6) g/dL Globulin 4.0 g/dL Albumin/Globulin Ratio 0.8 TSH, Ultra Sensitive (0.36-3.74) IU/mL SARS-CoV-2 RNA (JUDITH) (NEGATIVE) 08/04/20 08/04/20 08/04/20 Range/Units 14:25 14:25 14:25 WBC (3.0-10.3) x10-3/uL RBC (3.60-5.20) x10(6)uL Hgb (11.4-15.5) g/dL Hct (34.2-48.2) % MCV (76.7-100.5) fL MCH (23.9-33.9) pg MCHC (31.9-34.8) g/dL RDW (12.3-16.5) % Plt Count (151-488) x10(3)uL MPV (7.1-12.4) fL Neut % (Auto) (30.8-76.2) % Lymph % (Auto) (18.4-52.1) % [place] % (Auto) (4.4-15.7) % Eos % (Auto) (0.6-8.1) % Baso % (Auto) (0.2-1.5) % Neut # (Auto) (1.5-6.3) x10-3/uL Lymph # (Auto) (1.0-4.4) x10-3/uL [place] # (Auto) (0.3-1.0) x10-3/uL Eos # (Auto) (0.0-0.8) x10-3/uL Baso # (Auto) (0.0-0.1) x10-3/uL Sodium (135-145) mmol/L Potassium (3.5-5.3) mmol/L Chloride (100-110) mmol/L Carbon Dioxide (21-32) mmol/L BUN (7-18) mg/dL Creatinine (0.55-1.02) mg/dL Est Cr Clr Drug Dosing mL/min Estimated GFR (MDRD) (>60) BUN/Creatinine Ratio (9-20) Glucose (80-116) mg/dL Lactic Acid 3.2 H* (0.4-2.0) mmol/L Calcium (8.6-10.2) mg/dL Total Bilirubin (0.1-1.3) mg/dL AST (5-25) IU/L ALT (12-36) U/L Alkaline Phosphatase (56-112) IU/L Troponin I (4.0-60.3) pg/mL C-Reactive Protein 4.0 H* (0.5-0.9) mg/dL NT-Pro-B Natriuret Pep (<=450) pg/mL Total Protein (6.0-8.0) g/dL Albumin (3.2-4.6) g/dL Globulin g/dL Albumin/Globulin Ratio TSH, Ultra Sensitive 3.14 (0.36-3.74) IU/mL SARS-CoV-2 RNA (JUDITH) (NEGATIVE) 08/04/20 Range/Units 14:45 WBC (3.0-10.3) x10-3/uL RBC (3.60-5.20) x10(6)uL Hgb (11.4-15.5) g/dL Hct (34.2-48.2) % MCV (76.7-100.5) fL MCH (23.9-33.9) pg MCHC (31.9-34.8) g/dL RDW (12.3-16.5) % Plt Count (151-488) x10(3)uL MPV (7.1-12.4) fL Neut % (Auto) (30.8-76.2) % Lymph % (Auto) (18.4-52.1) % [place] % (Auto) (4.4-15.7) % Eos % (Auto) (0.6-8.1) % Baso % (Auto) (0.2-1.5) % Neut # (Auto) (1.5-6.3) x10-3/uL Lymph # (Auto) (1.0-4.4) x10-3/uL [place] # (Auto) (0.3-1.0) x10-3/uL Eos # (Auto) (0.0-0.8) x10-3/uL Baso # (Auto) (0.0-0.1) x10-3/uL Sodium (135-145) mmol/L Potassium (3.5-5.3) mmol/L Chloride (100-110) mmol/L Carbon Dioxide (21-32) mmol/L BUN (7-18) mg/dL Creatinine (0.55-1.02) mg/dL Est Cr Clr Drug Dosing mL/min Estimated GFR (MDRD) (>60) BUN/Creatinine Ratio (9-20) Glucose (80-116) mg/dL Lactic Acid (0.4-2.0) mmol/L Calcium (8.6-10.2) mg/dL Total Bilirubin (0.1-1.3) mg/dL AST (5-25) IU/L ALT (12-36) U/L Alkaline Phosphatase (56-112) IU/L Troponin I (4.0-60.3) pg/mL C-Reactive Protein (0.5-0.9) mg/dL NT-Pro-B Natriuret Pep (<=450) pg/mL Total Protein (6.0-8.0) g/dL Albumin (3.2-4.6) g/dL Globulin g/dL Albumin/Globulin Ratio TSH, Ultra Sensitive (0.36-3.74) IU/mL SARS-CoV-2 RNA (JUDITH) Negative (NEGATIVE) Result Diagrams: 08/04/20 14:25 08/04/20 14:25 Sepsis Event Note - Evaluation Sepsis Screening Result: Possible Sepsis Risk - Focused Exam Vital Signs: Vital Signs Temp Pulse Resp BP Pulse Ox 08/04/20 16:02 88 22 H 136/73 90 L 08/04/20 15:31 98.1 F 92 20 136/73 94 L 08/04/20 15:30 92 20 118/68 94 L 08/04/20 15:00 95 18 124/76 93 L 08/04/20 14:30 97 22 H 102/78 95 08/04/20 14:00 97 20 102/78 95 08/04/20 13:54 97.9 F 102 H 22 H 124/85 88 L *Q Meaningful Use (ADM) - VTE *Q VTE Mechanical Contraindications *Q: At Risk for Falls - VTE Risk Assess *Q Each Risk Factor Represents 1 Point: Abnormal Pulmonary Function (COPD) Total Score 1 Point Risk Factors: 1 Each Risk Factor Represents 2 Points: None Total Score 2 Point Risk Factors: 0 Each Risk Factor Represents 3 Points: Age 75 Years or Greater Total Score 3 Point Risk Factors: 3 Each Risk Factor Represents 5 Points: None Total Score 5 Point Risk Factors: 0 Venous Thromboembolism Risk Factor Score *Q: 4 - Problem List (1) COPD exacerbation SNOMED Code(s): 744389725 ICD Code: J44.1 - CHRONIC OBSTRUCTIVE PULMONARY DISEASE W (ACUTE) EXACERBATION Status: Acute Current Visit: Yes (2) Acute kidney failure SNOMED Code(s): 28735405 ICD Code: N17.9 - ACUTE KIDNEY FAILURE, UNSPECIFIED Status: Acute Current Visit: Yes (3) Hypokalemia SNOMED Code(s): 33211664 ICD Code: E87.6 - HYPOKALEMIA Status: Acute Current Visit: Yes (4) Diarrhea SNOMED Code(s): 78419977 ICD Code: R19.7 - DIARRHEA, UNSPECIFIED Status: Acute Current Visit: Yes (5) CHF (congestive heart failure) SNOMED Code(s): 20157824 ICD Code: I50.9 - HEART FAILURE, UNSPECIFIED Status: Acute Current Visit: Yes (6) COPD (chronic obstructive pulmonary disease) SNOMED Code(s): 60302212 ICD Code: J44.9 - CHRONIC OBSTRUCTIVE PULMONARY DISEASE, UNSPECIFIED Status: Acute Current Visit: Yes (7) Dehydration SNOMED Code(s): 84051629 ICD Code: E86.0 - DEHYDRATION Status: Acute Current Visit: No (8) Dementia SNOMED Code(s): 81879749 ICD Code: F03.90 - UNSPECIFIED DEMENTIA WITHOUT BEHAVIORAL DISTURBANCE Status: Acute Current Visit: No Qualifiers: Dementia type: Alzheimer's Alzheimer's disease onset: late-onset Dementia behavioral disturbance: with behavioral disturbance Qualified Code(s): G30.1 - Alzheimer's disease with late onset; F02.81 - Dementia in other diseases classified elsewhere with behavioral disturbance Problem List Initiated/Reviewed/Updated: Yes Orders Last 24hrs: Active Orders 24 hr Category Date Time Status Patient Status [ADT] Routine ADT 08/04/20 16:26 Active Oxygen Therapy [RC] PRN Care 08/04/20 16:26 Active RT Aerosol Therapy [RC] ASDIRECTED Care 08/04/20 15:22 Active RT Aerosol Therapy [RC] ASDIRECTED Care 08/04/20 16:28 Active Up With Assistance [RC] ASDIRECTED Care 08/04/20 16:26 Active Up to Chair [RC] ASDIRECTED Care 08/04/20 16:26 Active VTE/DVT Education [RC] Per Unit Routine Care 08/04/20 16:26 Active Vital Signs [RC] Q4H Care 08/04/20 16:26 Active Regular Diet [DIET] Diet 08/04/20 Dinner Active BASIC METABOLIC PANEL,BMP [CHEM] Routine Lab 08/05/20 06:00 Ordered CULTURE BLOOD [BC] Urgent Lab 08/04/20 14:25 Received CULTURE BLOOD [BC] Urgent Lab 08/04/20 14:43 Received LACTIC ACID [CHEM] Stat Lab 08/04/20 17:20 Ordered UA W/MICROSCOPIC [URIN] Stat Lab 08/04/20 14:05 Ordered Acetaminophen [TylenoL] Med 08/04/20 16:02 Active 650 mg PO Q4H PRN Albuterol/Ipratropium [DuoNeb 3.0-0.5 MG/3 ML] Med 08/04/20 16:26 Active 3 ml INH Q4H PRN Aspirin [Halfprin] Med 08/04/20 21:00 Active 81 mg PO 21 Carboxymethylcellulose Sodium [Refresh Tears 0.5%] Med 08/04/20 21:00 Active 0 ml EYEBOTH TID ClonazePAM [KlonoPIN] Med 08/05/20 09:00 Active 0.5 mg PO 09 DULoxetine [Cymbalta] Med 08/05/20 09:00 Active 90 mg PO DAILY Enoxaparin [Lovenox] Med 08/04/20 16:30 Active 30 mg SUBCUT Q24H Ferrous Sulfate Med 08/05/20 09:00 Active 325 mg PO DAILY Levofloxacin/Dextrose 5%-Water [Levaquin in D5W 500 MG/ Med 08/06/20 16:00 Active 100 ML] 100 ml IV Q48H Levofloxacin/Dextrose 5%-Water [Levaquin in D5W 750 MG/ Med 08/04/20 15:45 Ac tive 150 ML] 750 mg Premix Bag 1 bag IV ONETIME Levothyroxine [Synthroid] Med 08/05/20 09:00 Active 88 mcg PO DAILY Melatonin Med 08/04/20 21:00 Active 6 mg PO BEDTIME Memantine [Namenda] Med 08/05/20 09:00 Active 10 mg PO DAILY Mirtazapine [Remeron] Med 08/04/20 21:00 Active 7.5 mg PO BEDTIME Potassium Chloride [Klor-Con M20] Med 08/04/20 21:00 Ordered 20 meq PO TID QUEtiapine [SEROqueL] Med 08/05/20 09:00 Active 25 mg PO DAILY@0900 QUEtiapine [SEROqueL] Med 08/04/20 16:00 Active 37.5 mg PO DAILY@1600 QUEtiapine [SEROquel] Med 08/04/20 21:00 Active 150 mg PO BEDTIME Sodium Chloride 0.9% [Normal Saline] 1,000 ml Med 08/04/20 14:45 Active IV ASDIRECTED diphenhydrAMINE [Benadryl] Med 08/06/20 15:30 Active 12.5 mg IVPUSH Q48H Antiembolic Hose [OM.PC] Per Unit Routine Oth 08/04/20 16:27 Ordered Resuscitation Status Routine Resus Stat 08/04/20 16:26 Ordered EKG 12 Lead [EK] Routine Ther 08/04/20 14:07 Stop Req Medication Orders Acetaminophen (Acetaminophen 325 Mg Tab) 650 mg PO Q4H PRN PRN Reason: Pain Albuterol/Ipratropium (Albuterol/Ipratropium 3.0-0.5 Mg/3 Ml Neb Soln) 3 ml INH Q4H PRN PRN Reason: Shortness Of Breath/wheezing Artificial Tears (Carboxymethylcellulose Sodium 0.5% Ophth Soln 15 Ml Bottle) 0 ml EYEBOTH TID ELIU Aspirin (Aspirin 81 Mg Tab.Ec) 81 mg PO 21 ELIU Clonazepam (Clonazepam 0.5 Mg Tab) 0.5 mg PO 09 ELIU Diphenhydramine HCl (Diphenhydramine 50 Mg/Ml Sdv) 12.5 mg IVPUSH Q48H ELIU Duloxetine HCl (Duloxetine 30 Mg Cap) 90 mg PO DAILY ELIU Enoxaparin Sodium (Enoxaparin 30 Mg/0.3 Ml Syringe) 30 mg SUBCUT Q24H [facility] Ferrous Sulfate (Ferrous Sulfate 325 Mg Tab) 325 mg PO DAILY [facility] Sodium Chloride (Normal Saline) 1,000 mls @ 125 mls/hr IV ASDIRECTED [facility] Last Admin: 08/04/20 15:00 Dose: 125 mls/hr Documented by: DILIA Levofloxacin/Dextrose 750 mg/ (Premix) 150 mls @ 100 mls/hr IV ONETIME ONE Stop: 08/04/20 17:14 Last Admin: 08/04/20 15:57 Dose: 100 mls/hr Documented by: DILIA Levofloxacin/Dextrose (Levaquin In D5w 500 Mg/100 Ml) 100 mls @ 100 mls/hr IV Q48H [facility] Levothyroxine Sodium (Levothyroxine 88 Mcg Tab) 88 mcg PO DAILY [facility] Melatonin (Melatonin 3 Mg Tab) 6 mg PO BEDTIME [facility] Memantine (Memantine 10 Mg Tab) 10 mg PO DAILY [facility] Mirtazapine (Mirtazapine 15 Mg Tab) 7.5 mg PO BEDTIME [facility] Potassium Chloride (Potassium Chloride 20 Meq Tab.Er) 20 meq PO TID [facility] Quetiapine Fumarate (Quetiapine 25 Mg Tab) 25 mg PO DAILY@0900 [facility] Quetiapine Fumarate (Quetiapine 25 Mg Tab) 37.5 mg PO DAILY@1600 [facility] Last Admin: 08/04/20 16:21 Dose: 37.5 mg Documented by: DILIA Quetiapine Fumarate (Quetiapine 50 Mg Tab) 150 mg PO BEDTIME [facility] Assessment/Plan Comment:: 1. Admit inpatient status for COPD exacerbation with worsening hypoxia/symptoms requiring increase oxygen requirement(home 2.5L), Hypokalemia, Acute Kidney Failure, Dehydration with hypotension. 2. COPD exacerbation: recent Rocephin & Azithromycin used, loading dose of Levofloxacin 750 mg x 1, had red streak in vein with IV, no pain or itching reported by patient, will pretreat with Benadryl 12.5 mg, monitor for signs of a naphylaxis. If still does not tolerate then will switch to oral Levofloxacin tomorrow to see if tolerates. SoluMedrol 125 mg x 1 given in ER. DuoNebs q6h as needed. WBC 10.3, CRP 4.0. Repeat Lactic acid in 3 hours, most likely secondary to dehydration, BUN 35 since her WBC & neutrophils are within normal range. She is not on any medication that would cause lactic acidosis. 3. Hypokalemia: KCL 20 mEQ tid, repeat BMP in am. Telemetry. 4. SCOTT/Dehydration: NS at 125 ml/hr, monitor for fluid overload, CHF history. 5. Diarrhea: most likely antibiotic associated, C. diff ordered. 6. Diet: regular, ice cream for snacks. 7. Activity: up with assistance & up to chair. 8. DVT prophylaxis: Lovenox 30 mg SQ daily. TEDS BLE. 9. CODE STATUS: DNR/DNI. 10. Discharge planning: Anticipate discharge on Saturday to [facility]. - Mortality Measure Prognosis:: Poor
--- NOTE | 2020-08-04 18:16 | PCM.EKG ---
#1 Interpretation EKG Date: 08/04/20 Time: 15:20 Rhythm: NSR Rate (Beats/Min): 91 [place]: Normal P-Wave: Present QRS: Normal ST-T: Normal QT: Prolonged Comparison: No Change EKG Interpretation Comments: NSR Prolonged QT
[2020-08-04] MEDS: Melatonin 3 MG Tab PO SCH (20:44)
[2020-08-04] MEDS: Aspirin 81 MG Tab.EC PO SCH (20:44)
[2020-08-04] MEDS: Carboxymethylcellulose Sodium 0.5% Ophth Soln 15 ML Bottle EYEBOTH SCH (20:45)
[2020-08-04] MEDS: Mirtazapine 15 MG Tab PO SCH (20:46)
[2020-08-04] MEDS: Potassium Chloride 20 MEQ Tab.ER PO SCH (20:48)
[2020-08-05] MEDS: Sodium Chloride 0.9% 1,000 ML IV SCH (04:46)
[2020-08-05] MEDS: Ferrous Sulfate 325 MG Tab PO SCH (08:30)
[2020-08-05] MEDS: Levothyroxine 88 MCG Tab PO SCH (08:30)
[2020-08-05] MEDS: Memantine 10 MG Tab PO SCH (08:30)
[2020-08-05] MEDS: Carboxymethylcellulose Sodium 0.5% Ophth Soln 15 ML Bottle EYEBOTH SCH ×3 (08:30→20:59)
[2020-08-05] MEDS: QUEtiapine 25 MG Tab PO SCH ×2 (08:31→16:31)
[2020-08-05] MEDS: DULoxetine 30 MG Cap PO SCH (08:31)
[2020-08-05] MEDS: ClonazePAM 0.5 MG Tab PO SCH (08:57)
[2020-08-05] MEDS: Potassium Chloride 20 MEQ Tab.ER PO SCH ×3 (08:57→21:00)
[2020-08-05] MEDS: methylPREDNISolone Sodium Succinate 125 MG/2 ML SDV IVPUSH SCH (11:40)
--- NOTE | 2020-08-05 14:47 | PCM.PN ---
- General Info Date of Service: 08/05/20 Subjective Update: Belinda states she feels about the same. Had choking episode last evening. Her daughter states she has had that issue for years, Pat also said this. Denies any pain. Family does not want to test her for Aguilar's disease. They have 30 known family members with the disease and she is exhibiting some of same symptoms. There is limited treatment for it and would not change how we would be treating her so declined any genetic testing. She does have pacemaker which battery is and they elected not to get replaced, also did not want to do Brain MRI to check for Aguilar's disease. Wants chocolate ice cream for her snacks. Family is moving her things from [facility] apartment into memory care this weekend, so will be here until Saturday. - Patient Data Vitals - Most Recent: Last Vital Signs Temp 98.6 F 08/05/20 08:00 Pulse 85 08/05/20 08:00 Resp 20 08/05/20 08:00 BP 119/49 L 08/05/20 08:00 Pulse Ox 93 L 08/05/20 08:00 Weight - Most Recent: 156 lb 3.2 oz I&O - Last 24 Hours: Intake & Output 08/04/20 08/05/20 08/05/20 22:59 06:59 14:59 Intake Total 1732 Balance 1732 Lab Results Last 24 Hours: Laboratory Results - last 24 hr 08/04/20 08/04/20 08/04/20 Range/Units 14:25 14:25 14:25 WBC 10.3 (3.0-10.3) x10-3/uL RBC 4.69 (3.60-5.20) x10(6)uL Hgb 12.2 (11.4-15.5) g/dL Hct 39.9 (34.2-48.2) % MCV 85.1 (76.7-100.5) fL MCH 26.1 (23.9-33.9) pg MCHC 30.7 L (31.9-34.8) g/dL RDW 17.6 H (12.3-16.5) % Plt Count 380 (151-488) x10(3)uL MPV 9.9 (7.1-12.4) fL Neut % (Auto) 74.2 (30.8-76.2) % Lymph % (Auto) 14.7 L (18.4-52.1) % Glenn % (Auto) 7.5 (4.4-15.7) % Eos % (Auto) 2.8 (0.6-8.1) % Baso % (Auto) 0.8 (0.2-1.5) % Neut # (Auto) 7.7 H (1.5-6.3) x10-3/uL Lymph # (Auto) 1.5 (1.0-4.4) x10-3/uL Glenn # (Auto) 0.8 (0.3-1.0) x10-3/uL Eos # (Auto) 0.3 (0.0-0.8) x10-3/uL Baso # (Auto) 0.1 (0.0-0.1) x10-3/uL Sodium 148 H (135-145) mmol/L Potassium 2.7 L* (3.5-5.3) mmol/L Chloride 102 D (100-110) mmol/L Carbon Dioxide 39 H (21-32) mmol/L BUN 36 H (7-18) mg/dL Creatinine 1.9 H (0.55-1.02) mg/dL Est Cr Clr Drug Dosing 18.37 mL/min Estimated GFR (MDRD) 25 L (>60) BUN/Creatinine Ratio 18.9 (9-20) Glucose 218 H D (80-116) mg/dL Lactic Acid (0.4-2.0) mmol/L Calcium 8.9 (8.6-10.2) mg/dL Total Bilirubin 0.7 (0.1-1.3) mg/dL AST 112 H D (5-25) IU/L ALT 51 H D (12-36) U/L Alkaline Phosphatase 302 H (56-112) IU/L Troponin I 12.4 (4.0-60.3) pg/mL C-Reactive Protein (0.5-0.9) mg/dL NT-Pro-B Natriuret Pep 214 (<=450) pg/mL Total Protein 7.0 (6.0-8.0) g/dL Albumin 3.0 L (3.2-4.6) g/dL Globulin 4.0 g/dL Albumin/Globulin Ratio 0.8 TSH, Ultra Sensitive (0.36-3.74) IU/mL Urine Color (YELLOW) Urine Appearance (CLEAR) Urine pH (5.0-6.5) Ur Specific [place] (1.010-1.025) Urine Protein (NEGATIVE) mg/dL Urine Glucose (UA) (NORMAL) mg/dL Urine Ketones (NEGATIVE) mg/dL Urine Occult Blood (NEGATIVE) Urine Nitrite (NEGATIVE) Urine Bilirubin (NEGATIVE) Urine Urobilinogen (NEGATIVE) mg/dL Ur Leukocyte Esterase (NEGATIVE) Urine RBC (0-5) Urine WBC (0-5) Ur Squamous Epith Cells (NS,R,O) Calcium Oxalate Crystal (NS) Urine Bacteria (NS) SARS-CoV-2 RNA (JUDITH) (NEGATIVE) 08/04/20 08/04/20 08/04/20 Range/Units 14:25 14:25 14:25 WBC (3.0-10.3) x10-3/uL RBC (3.60-5.20) x10(6)uL Hgb (11.4-15.5) g/dL Hct (34.2-48.2) % MCV (76.7-100.5) fL MCH (23.9-33.9) pg MCHC (31.9-34.8) g/dL RDW (12.3-16.5) % Plt Count (151-488) x10(3)uL MPV (7.1-12.4) fL Neut % (Auto) (30.8-76.2) % Lymph % (Auto) (18.4-52.1) % Glenn % (Auto) (4.4-15.7) % Eos % (Auto) (0.6-8.1) % Baso % (Auto) (0.2-1.5) % Neut # (Auto) (1.5-6.3) x10-3/uL Lymph # (Auto) (1.0-4.4) x10-3/uL Glenn # (Auto) (0.3-1.0) x10-3/uL Eos # (Auto) (0.0-0.8) x10-3/uL Baso # (Auto) (0.0-0.1) x10-3/uL Sodium (135-145) mmol/L Potassium (3.5-5.3) mmol/L Chloride (100-110) mmol/L Carbon Dioxide (21-32) mmol/L BUN (7-18) mg/dL Creatinine (0.55-1.02) mg/dL Est Cr Clr Drug Dosing mL/min Estimated GFR (MDRD) (>60) BUN/Creatinine Ratio (9-20) Glucose (80-116) mg/dL Lactic Acid 3.2 H* (0.4-2.0) mmol/L Calcium (8.6-10.2) mg/dL Total Bilirubin (0.1-1.3) mg/dL AST (5-25) IU/L ALT (12-36) U/L Alkaline Phosphatase (56-112) IU/L Troponin I (4.0-60.3) pg/mL C-Reactive Protein 4.0 H* (0.5-0.9) mg/dL NT-Pro-B Natriuret Pep (<=450) pg/mL Total Protein (6.0-8.0) g/dL Albumin (3.2-4.6) g/dL Globulin g/dL Albumin/Globulin Ratio TSH, Ultra Sensitive 3.14 (0.36-3.74) IU/mL Urine Color (YELLOW) Urine Appearance (CLEAR) Urine pH (5.0-6.5) Ur Specific [place] (1.010-1.025) Urine Protein (NEGATIVE) mg/dL Urine Glucose (UA) (NORMAL) mg/dL Urine Ketones (NEGATIVE) mg/dL Urine Occult Blood (NEGATIVE) Urine Nitrite (NEGATIVE) Urine Bilirubin (NEGATIVE) Urine Urobilinogen (NEGATIVE) mg/dL Ur Leukocyte Esterase (NEGATIVE) Urine RBC (0-5) Urine WBC (0-5) Ur Squamous Epith Cells (NS,R,O) Calcium Oxalate Crystal (NS) Urine Bacteria (NS) SARS-CoV-2 RNA (JUDITH) (NEGATIVE) 08/04/20 08/04/20 08/05/20 Range/Units 14:45 17:29 05:55 WBC (3.0-10.3) x10-3/uL RBC (3.60-5.20) x10(6)uL Hgb (11.4-15.5) g/dL Hct (34.2-48.2) % MCV (76.7-100.5) fL MCH (23.9-33.9) pg MCHC (31.9-34.8) g/dL RDW (12.3-16.5) % Plt Count (151-488) x10(3)uL MPV (7.1-12.4) fL Neut % (Auto) (30.8-76.2) % Lymph % (Auto) (18.4-52.1) % Glenn % (Auto) (4.4-15.7) % Eos % (Auto) (0.6-8.1) % Baso % (Auto) (0.2-1.5) % Neut # (Auto) (1.5-6.3) x10-3/uL Lymph # (Auto) (1.0-4.4) x10-3/uL Glenn # (Auto) (0.3-1.0) x10-3/uL Eos # (Auto) (0.0-0.8) x10-3/uL Baso # (Auto) (0.0-0.1) x10-3/uL Sodium (135-145) mmol/L Potassium (3.5-5.3) mmol/L Chloride (100-110) mmol/L Carbon Dioxide (21-32) mmol/L BUN (7-18) mg/dL Creatinine (0.55-1.02) mg/dL Est Cr Clr Drug Dosing mL/min Estimated GFR (MDRD) (>60) BUN/Creatinine Ratio (9-20) Glucose (80-116) mg/dL Lactic Acid 1.6 (0.4-2.0) mmol/L Calcium (8.6-10.2) mg/dL Total Bilirubin (0.1-1.3) mg/dL AST (5-25) IU/L ALT (12-36) U/L Alkaline Phosphatase (56-112) IU/L Troponin I (4.0-60.3) pg/mL C-Reactive Protein (0.5-0.9) mg/dL NT-Pro-B Natriuret Pep (<=450) pg/mL Total Protein (6.0-8.0) g/dL Albumin (3.2-4.6) g/dL Globulin g/dL Albumin/Globulin Ratio TSH, Ultra Sensitive (0.36-3.74) IU/mL Urine Color Yellow (YELLOW) Urine Appearance Slightly cloudy (CLEAR) Urine pH 5.0 (5.0-6.5) Ur Specific [place] 1.025 (1.010-1.025) Urine Protein Negative (NEGATIVE) mg/dL Urine Glucose (UA) Normal (NORMAL) mg/dL Urine Ketones Negative (NEGATIVE) mg/dL Urine Occult Blood Negative (NEGATIVE) Urine Nitrite Negative (NEGATIVE) Urine Bilirubin Negative (NEGATIVE) Urine Urobilinogen Normal (NEGATIVE) mg/dL Ur Leukocyte Esterase Negative (NEGATIVE) Urine RBC 0-5 (0-5) Urine WBC 0-5 (0-5) Ur Squamous Epith Cells Few H (NS,R,O) Calcium Oxalate Crystal Few H (NS) Urine Bacteria Few H (NS) SARS-CoV-2 RNA (JUDITH) Negative (NEGATIVE) 08/05/20 Range/Units 06:15 WBC (3.0-10.3) x10-3/uL RBC (3.60-5.20) x10(6)uL Hgb (11.4-15.5) g/dL Hct (34.2-48.2) % MCV (76.7-100.5) fL MCH (23.9-33.9) pg MCHC (31.9-34.8) g/dL RDW (12.3-16.5) % Plt Count (151-488) x10(3)uL MPV (7.1-12.4) fL Neut % (Auto) (30.8-76.2) % Lymph % (Auto) (18.4-52.1) % Glenn % (Auto) (4.4-15.7) % Eos % (Auto) (0.6-8.1) % Baso % (Auto) (0.2-1.5) % Neut # (Auto) (1.5-6.3) x10-3/uL Lymph # (Auto) (1.0-4.4) x10-3/uL Glenn # (Auto) (0.3-1.0) x10-3/uL Eos # (Auto) (0.0-0.8) x10-3/uL Baso # (Auto) (0.0-0.1) x10-3/uL Sodium 149 H (135-145) mmol/L Potassium 3.3 L (3.5-5.3) mmol/L Chloride 107 D (100-110) mmol/L Carbon Dioxide 36 H (21-32) mmol/L BUN 32 H (7-18) mg/dL Creatinine 1.5 H (0.55-1.02) mg/dL Est Cr Clr Drug Dosing 23.80 mL/min Estimated GFR (MDRD) 33 L (>60) BUN/Creatinine Ratio 21.3 H (9-20) Glucose 187 H (80-116) mg/dL Lactic Acid (0.4-2.0) mmol/L Calcium 8.2 L (8.6-10.2) mg/dL Total Bilirubin (0.1-1.3) mg/dL AST (5-25) IU/L ALT (12-36) U/L Alkaline Phosphatase (56-112) IU/L Troponin I (4.0-60.3) pg/mL C-Reactive Protein (0.5-0.9) mg/dL NT-Pro-B Natriuret Pep (<=450) pg/mL Total Protein (6.0-8.0) g/dL Albumin (3.2-4.6) g/dL Globulin g/dL Albumin/Globulin Ratio TSH, Ultra Sensitive (0.36-3.74) IU/mL Urine Color (YELLOW) Urine Appearance (CLEAR) Urine pH (5.0-6.5) Ur Specific [place] (1.010-1.025) Urine Protein (NEGATIVE) mg/dL Urine Glucose (UA) (NORMAL) mg/dL Urine Ketones (NEGATIVE) mg/dL Urine Occult Blood (NEGATIVE) Urine Nitrite (NEGATIVE) Urine Bilirubin (NEGATIVE) Urine Urobilinogen (NEGATIVE) mg/dL Ur Leukocyte Esterase (NEGATIVE) Urine RBC (0-5) Urine WBC (0-5) Ur Squamous Epith Cells (NS,R,O) Calcium Oxalate Crystal (NS) Urine Bacteria (NS) SARS-CoV-2 RNA (JUDITH) (NEGATIVE) Rolf Results Last 24 Hours: Microbiology 08/04/20 19:45 C. difficile Antigen & Toxins A,B - Final Stool / Feces Med Orders - Current: Current Medications Acetaminophen (Acetaminophen 325 Mg Tab) 650 mg PO Q4H PRN PRN Reason: Pain Albuterol/Ipratropium (Albuterol/Ipratropium 3.0-0.5 Mg/3 Ml Neb Soln) 3 ml INH Q4H PRN PRN Reason: Shortness Of Breath/wheezing Artificial Tears (Carboxymethylcellulose Sodium 0.5% Ophth Soln 15 Ml Bottle) 0 ml EYEBOTH TID [facility] Last Admin: 08/05/20 08:30 Dose: 1 drop Documented by: Aspirin (Aspirin 81 Mg Tab.Ec) 81 mg PO 21 [facility] Last Admin: 08/04/20 20:44 Dose: 81 mg Documented by: Clonazepam (Clonazepam 0.5 Mg Tab) 0.5 mg PO 09 [facility] Last Admin: 08/05/20 08:57 Dose: 0.5 mg Documented by: Diphenhydramine HCl (Diphenhydramine 50 Mg/Ml Sdv) 12.5 mg IVPUSH Q48H [facility] Duloxetine HCl (Duloxetine 30 Mg Cap) 90 mg PO DAILY [facility] Last Admin: 08/05/20 08:31 Dose: 90 mg Documented by: Enoxaparin Sodium (Enoxaparin 30 Mg/0.3 Ml Syringe) 30 mg SUBCUT Q24H [facility] Last Admin: 08/04/20 17:09 Dose: 30 mg Documented by: Ferrous Sulfate (Ferrous Sulfate 325 Mg Tab) 325 mg PO DAILY [facility] Last Admin: 08/05/20 08:30 Dose: 325 mg Documented by: Levofloxacin/Dextrose (Levaquin In D5w 500 Mg/100 Ml) 100 mls @ 100 mls/hr IV Q48H [facility] Levothyroxine Sodium (Levothyroxine 88 Mcg Tab) 88 mcg PO DAILY [facility] Last Admin: 08/05/20 08:30 Dose: 88 mcg Documented by: Melatonin (Melatonin 3 Mg Tab) 6 mg PO BEDTIME [facility] Last Admin: 08/04/20 20:44 Dose: 6 mg Documented by: Memantine (Memantine 10 Mg Tab) 10 mg PO DAILY [facility] Last Admin: 08/05/20 08:30 Dose: 10 mg Documented by: Methylprednisolone Sodium Succinate (Methylprednisolone Sodium Succinate 125 Mg/2 Ml Sdv) 60 mg IVPUSH DAILY [facility] Last Admin: 08/05/20 11:40 Dose: 60 mg Documented by: Mirtazapine (Mirtazapine 15 Mg Tab) 7.5 mg PO BEDTIME [facility] Last Admin: 08/04/20 20:46 Dose: 7.5 mg Documented by: Potassium Chloride (Potassium Chloride 20 Meq Tab.Er) 20 meq PO TID [facility] Last Admin: 08/05/20 08:57 Dose: 20 meq Documented by: Quetiapine Fumarate (Quetiapine 25 Mg Tab) 25 mg PO DAILY@0900 [facility] Last Admin: 08/05/20 08:31 Dose: 25 mg Documented by: Quetiapine Fumarate (Quetiapine 25 Mg Tab) 37.5 mg PO DAILY@1600 [facility] Last Admin: 08/04/20 16:21 Dose: 37.5 mg Documented by: Quetiapine Fumarate (Quetiapine 50 Mg Tab) 150 mg PO BEDTIME [facility] Last Admin: 08/04/20 20:45 Dose: 150 mg Documented by: Discontinued Medications Albuterol/Ipratropium (Albuterol/Ipratropium 3.0-0.5 Mg/3 Ml Neb Soln) 3 ml NEB ONETIME ONE Stop: 08/04/20 15:21 Last Admin: 08/04/20 15:37 Dose: 3 ml Documented by: Diphenhydramine HCl (Diphenhydramine 50 Mg/Ml Sdv) 12.5 mg IVPUSH ONETIME ONE Stop: 08/04/20 17:01 Last Admin: 08/04/20 17:07 Dose: 12.5 mg Documented by: Sodium Chloride (Normal Saline) 1,000 mls @ 125 mls/hr IV ASDIRECTED [facility] Last Admin: 08/05/20 04:46 Dose: 125 mls/hr Documented by: Piperacillin Sod/Tazobactam (Sod 3.375 gm/ Sodium Chloride) 50 mls @ 100 mls/hr IV Q6H [facility] Last Admin: 08/04/20 17:14 Dose: Not Given Documented by: Levofloxacin/Dextrose 750 mg/ (Premix) 150 mls @ 100 mls/hr IV ONETIME ONE Stop: 08/04/20 17:14 Last Admin: 08/04/20 15:57 Dose: 100 mls/hr Documented by: Methylprednisolone Sodium Succinate (Methylprednisolone Sodium Succinate 125 Mg/2 Ml Sdv) 125 mg IVPUSH DAILY [facility] Last Admin: 08/04/20 15:37 Dose: 125 mg Documented by: - Exam General: Alert, Oriented (person), Cooperative, No Acute Distress Neck: Trachea Midline Lungs: Clear to Auscultation, Normal Respiratory Effort, Decreased Breath Sounds (bibasilar). No: Crackles, Wheezing Cardiovascular: Regular Rate, Irregular Rhythm GI/Abdominal Exam: Normal Bowel Sounds, Soft, Non-Tender, No Distention Extremities: No Pedal Edema Peripheral Pulses: 2+: Radial (L), Radial (R) Psy/Mental Status: Normal Mood - Patient Data Lab Results Last 24 hrs: Laboratory Results - last 24 hr 08/04/20 08/04/20 08/04/20 Range/Units 14:25 14:25 14:25 WBC 10.3 (3.0-10.3) x10-3/uL RBC 4.69 (3.60-5.20) x10(6)uL Hgb 12.2 (11.4-15.5) g/dL Hct 39.9 (34.2-48.2) % MCV 85.1 (76.7-100.5) fL MCH 26.1 (23.9-33.9) pg MCHC 30.7 L (31.9-34.8) g/dL RDW 17.6 H (12.3-16.5) % Plt Count 380 (151-488) x10(3)uL MPV 9.9 (7.1-12.4) fL Neut % (Auto) 74.2 (30.8-76.2) % Lymph % (Auto) 14.7 L (18.4-52.1) % Glenn % (Auto) 7.5 (4.4-15.7) % Eos % (Auto) 2.8 (0.6-8.1) % Baso % (Auto) 0.8 (0.2-1.5) % Neut # (Auto) 7.7 H (1.5-6.3) x10-3/uL Lymph # (Auto) 1.5 (1.0-4.4) x10-3/uL Glenn # (Auto) 0.8 (0.3-1.0) x10-3/uL Eos # (Auto) 0.3 (0.0-0.8) x10-3/uL Baso # (Auto) 0.1 (0.0-0.1) x10-3/uL Sodium 148 H (135-145) mmol/L Potassium 2.7 L* (3.5-5.3) mmol/L Chloride 102 D (100-110) mmol/L Carbon Dioxide 39 H (21-32) mmol/L BUN 36 H (7-18) mg/dL Creatinine 1.9 H (0.55-1.02) mg/dL Est Cr Clr Drug Dosing 18.37 mL/min Estimated GFR (MDRD) 25 L (>60) BUN/Creatinine Ratio 18.9 (9-20) Glucose 218 H D (80-116) mg/dL Lactic Acid (0.4-2.0) mmol/L Calcium 8.9 (8.6-10.2) mg/dL Total Bilirubin 0.7 (0.1-1.3) mg/dL AST 112 H D (5-25) IU/L ALT 51 H D (12-36) U/L Alkaline Phosphatase 302 H (56-112) IU/L Troponin I 12.4 (4.0-60.3) pg/mL C-Reactive Protein (0.5-0.9) mg/dL NT-Pro-B Natriuret Pep 214 (<=450) pg/mL Total Protein 7.0 (6.0-8.0) g/dL Albumin 3.0 L (3.2-4.6) g/dL Globulin 4.0 g/dL Albumin/Globulin Ratio 0.8 TSH, Ultra Sensitive (0.36-3.74) IU/mL Urine Color (YELLOW) Urine Appearance (CLEAR) Urine pH (5.0-6.5) Ur Specific [place] (1.010-1.025) Urine Protein (NEGATIVE) mg/dL Urine Glucose (UA) (NORMAL) mg/dL Urine Ketones (NEGATIVE) mg/dL Urine Occult Blood (NEGATIVE) Urine Nitrite (NEGATIVE) Urine Bilirubin (NEGATIVE) Urine Urobilinogen (NEGATIVE) mg/dL Ur Leukocyte Esterase (NEGATIVE) Urine RBC (0-5) Urine WBC (0-5) Ur Squamous Epith Cells (NS,R,O) Calcium Oxalate Crystal (NS) Urine Bacteria (NS) SARS-CoV-2 RNA (JUDITH) (NEGATIVE) 08/04/20 08/04/20 08/04/20 Range/Units 14:25 14:25 14:25 WBC (3.0-10.3) x10-3/uL RBC (3.60-5.20) x10(6)uL Hgb (11.4-15.5) g/dL Hct (34.2-48.2) % MCV (76.7-100.5) fL MCH (23.9-33.9) pg MCHC (31.9-34.8) g/dL RDW (12.3-16.5) % Plt Count (151-488) x10(3)uL MPV (7.1-12.4) fL Neut % (Auto) (30.8-76.2) % Lymph % (Auto) (18.4-52.1) % Glenn % (Auto) (4.4-15.7) % Eos % (Auto) (0.6-8.1) % Baso % (Auto) (0.2-1.5) % Neut # (Auto) (1.5-6.3) x10-3/uL Lymph # (Auto) (1.0-4.4) x10-3/uL Glenn # (Auto) (0.3-1.0) x10-3/uL Eos # (Auto) (0.0-0.8) x10-3/uL Baso # (Auto) (0.0-0.1) x10-3/uL Sodium (135-145) mmol/L Potassium (3.5-5.3) mmol/L Chloride (100-110) mmol/L Carbon Dioxide (21-32) mmol/L BUN (7-18) mg/dL Creatinine (0.55-1.02) mg/dL Est Cr Clr Drug Dosing mL/min Estimated GFR (MDRD) (>60) BUN/Creatinine Ratio (9-20) Glucose (80-116) mg/dL Lactic Acid 3.2 H* (0.4-2.0) mmol/L Calcium (8.6-10.2) mg/dL Total Bilirubin (0.1-1.3) mg/dL AST (5-25) IU/L ALT (12-36) U/L Alkaline Phosphatase (56-112) IU/L Troponin I (4.0-60.3) pg/mL C-Reactive Protein 4.0 H* (0.5-0.9) mg/dL NT-Pro-B Natriuret Pep (<=450) pg/mL Total Protein (6.0-8.0) g/dL Albumin (3.2-4.6) g/dL Globulin g/dL Albumin/Globulin Ratio TSH, Ultra Sensitive 3.14 (0.36-3.74) IU/mL Urine Color (YELLOW) Urine Appearance (CLEAR) Urine pH (5.0-6.5) Ur Specific [place] (1.010-1.025) Urine Protein (NEGATIVE) mg/dL Urine Glucose (UA) (NORMAL) mg/dL Urine Ketones (NEGATIVE) mg/dL Urine Occult Blood (NEGATIVE) Urine Nitrite (NEGATIVE) Urine Bilirubin (NEGATIVE) Urine Urobilinogen (NEGATIVE) mg/dL Ur Leukocyte Esterase (NEGATIVE) Urine RBC (0-5) Urine WBC (0-5) Ur Squamous Epith Cells (NS,R,O) Calcium Oxalate Crystal (NS) Urine Bacteria (NS) SARS-CoV-2 RNA (JUDITH) (NEGATIVE) 08/04/20 08/04/20 08/05/20 Range/Units 14:45 17:29 05:55 WBC (3.0-10.3) x10-3/uL RBC (3.60-5.20) x10(6)uL Hgb (11.4-15.5) g/dL Hct (34.2-48.2) % MCV (76.7-100.5) fL MCH (23.9-33.9) pg MCHC (31.9-34.8) g/dL RDW (12.3-16.5) % Plt Count (151-488) x10(3)uL MPV (7.1-12.4) fL Neut % (Auto) (30.8-76.2) % Lymph % (Auto) (18.4-52.1) % Glenn % (Auto) (4.4-15.7) % Eos % (Auto) (0.6-8.1) % Baso % (Auto) (0.2-1.5) % Neut # (Auto) (1.5-6.3) x10-3/uL Lymph # (Auto) (1.0-4.4) x10-3/uL Glenn # (Auto) (0.3-1.0) x10-3/uL Eos # (Auto) (0.0-0.8) x10-3/uL Baso # (Auto) (0.0-0.1) x10-3/uL Sodium (135-145) mmol/L Potassium (3.5-5.3) mmol/L Chloride (100-110) mmol/L Carbon Dioxide (21-32) mmol/L BUN (7-18) mg/dL Creatinine (0.55-1.02) mg/dL Est Cr Clr Drug Dosing mL/min Estimated GFR (MDRD) (>60) BUN/Creatinine Ratio (9-20) Glucose (80-116) mg/dL Lactic Acid 1.6 (0.4-2.0) mmol/L Calcium (8.6-10.2) mg/dL Total Bilirubin (0.1-1.3) mg/dL AST (5-25) IU/L ALT (12-36) U/L Alkaline Phosphatase (56-112) IU/L Troponin I (4.0-60.3) pg/mL C-Reactive Protein (0.5-0.9) mg/dL NT-Pro-B Natriuret Pep (<=450) pg/mL Total Protein (6.0-8.0) g/dL Albumin (3.2-4.6) g/dL Globulin g/dL Albumin/Globulin Ratio TSH, Ultra Sensitive (0.36-3.74) IU/mL Urine Color Yellow (YELLOW) Urine Appearance Slightly cloudy (CLEAR) Urine pH 5.0 (5.0-6.5) Ur Specific [place] 1.025 (1.010-1.025) Urine Protein Negative (NEGATIVE) mg/dL Urine Glucose (UA) Normal (NORMAL) mg/dL Urine Ketones Negative (NEGATIVE) mg/dL Urine Occult Blood Negative (NEGATIVE) Urine Nitrite Negative (NEGATIVE) Urine Bilirubin Negative (NEGATIVE) Urine Urobilinogen Normal (NEGATIVE) mg/dL Ur Leukocyte Esterase Negative (NEGATIVE) Urine RBC 0-5 (0-5) Urine WBC 0-5 (0-5) Ur Squamous Epith Cells Few H (NS,R,O) Calcium Oxalate Crystal Few H (NS) Urine Bacteria Few H (NS) SARS-CoV-2 RNA (JUDITH) Negative (NEGATIVE) 08/05/20 Range/Units 06:15 WBC (3.0-10.3) x10-3/uL RBC (3.60-5.20) x10(6)uL Hgb (11.4-15.5) g/dL Hct (34.2-48.2) % MCV (76.7-100.5) fL MCH (23.9-33.9) pg MCHC (31.9-34.8) g/dL RDW (12.3-16.5) % Plt Count (151-488) x10(3)uL MPV (7.1-12.4) fL Neut % (Auto) (30.8-76.2) % Lymph % (Auto) (18.4-52.1) % Glenn % (Auto) (4.4-15.7) % Eos % (Auto) (0.6-8.1) % Baso % (Auto) (0.2-1.5) % Neut # (Auto) (1.5-6.3) x10-3/uL Lymph # (Auto) (1.0-4.4) x10-3/uL Glenn # (Auto) (0.3-1.0) x10-3/uL Eos # (Auto) (0.0-0.8) x10-3/uL Baso # (Auto) (0.0-0.1) x10-3/uL Sodium 149 H (135-145) mmol/L Potassium 3.3 L (3.5-5.3) mmol/L Chloride 107 D (100-110) mmol/L Carbon Dioxide 36 H (21-32) mmol/L BUN 32 H (7-18) mg/dL Creatinine 1.5 H (0.55-1.02) mg/dL Est Cr Clr Drug Dosing 23.80 mL/min Estimated GFR (MDRD) 33 L (>60) BUN/Creatinine Ratio 21.3 H (9-20) Glucose 187 H (80-116) mg/dL Lactic Acid (0.4-2.0) mmol/L Calcium 8.2 L (8.6-10.2) mg/dL Total Bilirubin (0.1-1.3) mg/dL AST (5-25) IU/L ALT (12-36) U/L Alkaline Phosphatase (56-112) IU/L Troponin I (4.0-60.3) pg/mL C-Reactive Protein (0.5-0.9) mg/dL NT-Pro-B Natriuret Pep (<=450) pg/mL Total Protein (6.0-8.0) g/dL Albumin (3.2-4.6) g/dL Globulin g/dL Albumin/Globulin Ratio TSH, Ultra Sensitive (0.36-3.74) IU/mL Urine Color (YELLOW) Urine Appearance (CLEAR) Urine pH (5.0-6.5) Ur Specific [place] (1.010-1.025) Urine Protein (NEGATIVE) mg/dL Urine Glucose (UA) (NORMAL) mg/dL Urine Ketones (NEGATIVE) mg/dL Urine Occult Blood (NEGATIVE) Urine Nitrite (NEGATIVE) Urine Bilirubin (NEGATIVE) Urine Urobilinogen (NEGATIVE) mg/dL Ur Leukocyte Esterase (NEGATIVE) Urine RBC (0-5) Urine WBC (0-5) Ur Squamous Epith Cells (NS,R,O) Calcium Oxalate Crystal (NS) Urine Bacteria (NS) SARS-CoV-2 RNA (JUDITH) (NEGATIVE) Result Diagrams: 08/04/20 14:25 08/05/20 06:15 Rolf Results Last 24 hrs: Microbiology 08/04/20 19:45 C. difficile Antigen & Toxins A,B - Final Stool / Feces Sepsis Event Note - Evaluation Sepsis Screening Result: No Definite Risk - Focused Exam Vital Signs: Vital Signs Temp Pulse Resp BP Pulse Ox 08/05/20 08:00 98.6 F 85 20 119/49 L 93 L 08/05/20 04:00 97.9 F 70 16 95/47 L 93 L - Problem List & Annotations (1) COPD exacerbation SNOMED Code(s): 705932199 Code(s): J44.1 - CHRONIC OBSTRUCTIVE PULMONARY DISEASE W (ACUTE) EXACERBATION Status: Acute Current Visit: Yes (2) Acute kidney failure SNOMED Code(s): 58201812 Code(s): N17.9 - ACUTE KIDNEY FAILURE, UNSPECIFIED Status: Acute Current Visit: Yes Annotation/Comment:: Improving, BUN 32, Cr 1.5 (3) Hypokalemia SNOMED Code(s): 81331421 Code(s): E87.6 - HYPOKALEMIA Status: Acute Current Visit: Yes Annotation/Comment:: Improved to 3.3 (4) Diarrhea SNOMED Code(s): 49768527 Code(s): R19.7 - DIARRHEA, UNSPECIFIED Status: Acute Current Visit: Yes Annotation/Comment:: C. difficile was negative. (5) CHF (congestive heart failure) SNOMED Code(s): 53924901 Code(s): I50.9 - HEART FAILURE, UNSPECIFIED Status: Chronic Current Visit: Yes (6) COPD (chronic obstructive pulmonary disease) SNOMED Code(s): 25295430 Code(s): J44.9 - CHRONIC OBSTRUCTIVE PULMONARY DISEASE, UNSPECIFIED Status: Chronic Current Visit: Yes (7) Dehydration SNOMED Code(s): 49383488 Code(s): E86.0 - DEHYDRATION Status: Acute Current Visit: Yes Annotation/Comment:: Improving. (8) Dementia SNOMED Code(s): 13384657 Code(s): F03.90 - UNSPECIFIED DEMENTIA WITHOUT BEHAVIORAL DISTURBANCE Status: Acute Current Visit: No Qualifiers: Dementia type: Alzheimer's Alzheimer's disease onset: late-onset Dementia behavioral disturbance: with behavioral disturbance Qualified Code(s): G30.1 - Alzheimer's disease with late onset; F02.81 - Dementia in other diseases classified elsewhere with behavioral disturbance (9) Dysphagia SNOMED Code(s): 72187113, 801199677 Code(s): R13.10 - DYSPHAGIA, UNSPECIFIED Status: Acute Current Visit: Yes Qualifiers: Dysphagia type: oral phase Qualified Code(s): R13.11 - Dysphagia, oral phase - Problem List Review Problem List Initiated/Reviewed/Updated: Yes - My Orders Last 24 Hours: My Active Orders 08/04/20 Dinner Regular Diet [DIET] 08/04/20 16:26 Patient Status [ADT] Routine Oxygen Therapy [RC] PRN Up With Assistance [RC] ASDIRECTED Up to Chair [RC] ASDIRECTED Vital Signs [RC] Q4H Albuterol/Ipratropium [DuoNeb 3.0-0.5 MG/3 ML] 3 ml INH Q4H PRN Resuscitation Status Routine 08/04/20 16:27 Antiembolic Hose [OM.PC] Per Unit Routine 08/04/20 16:28 RT Aerosol Therapy [RC] ASDIRECTED 08/04/20 16:30 Enoxaparin [Lovenox] 30 mg SUBCUT Q24H 08/04/20 21:00 Potassium Chloride [Klor-Con M20] 20 meq PO TID 08/05/20 10:00 methylPREDNISolone Sod Succ [Solu-MEDROL] 60 mg IVPUSH DAILY 08/05/20 14:37 Convert IV to Peripheral Lock [Convert IV to Saline Lock] [OM.PC] Routine 08/05/20 14:38 Dietary Supplements [RC] WITHMEALSANDBED 08/06/20 06:00 BASIC METABOLIC PANEL,BMP [CHEM] Routine CBC WITH AUTO DIFF [HEME] Routine 08/06/20 15:30 diphenhydrAMINE [Benadryl] 12.5 mg IVPUSH Q48H 08/06/20 16:00 Levofloxacin/Dextrose 5%-Water [Levaquin in D5W 500 MG/100 ML] 100 ml IV Q48H - Plan Plan:: 1. COPD exacerbation: pretreat with Benadryl 12.5 mg, monitor for signs of anaphylaxis. Levofloxacin 500 mg IV q48h. SoluMedrol 60 mg daily x 3 days. DuoNebs q6h as needed. . 2. Hypokalemia: 3.3. KCL 20 mEQ tid, repeat BMP in am. 3. SCOTT/Dehydration: Saline lock. Cr 1.5, improving encourage oral intake. 4. Diarrhea: most likely antibiotic associated, C. diff negative. 5. Discharge planning: Anticipate discharge on Saturday to [facility].
[2020-08-05] MEDS ORDERED: Sodium Chloride 0.9% 10 ML Syringe FLUSH SCH (15:00)
--- NOTE | 2020-08-05 16:07 | PCM.EKG ---
#1 Interpretation EKG Date: 08/05/20 Time: 15:11 Rhythm: NSR Rate (Beats/Min): 87 [place]: Normal P-Wave: Present (prolonged, 152 msec) QRS: Normal ST-T: Normal QT: Normal Comparison: Change From Previous EKG EKG Interpretation Comments: Normal sinus rhythm, normal QTc. No ST-T wave changes.
[2020-08-05] MEDS: Enoxaparin 30 MG/0.3 ML Syringe SUBCUT SCH (16:33)
[2020-08-05] MEDS: Melatonin 3 MG Tab PO SCH (21:00)
[2020-08-05] MEDS: Mirtazapine 15 MG Tab PO SCH (21:00)
[2020-08-05] MEDS: Aspirin 81 MG Tab.EC PO SCH (21:00)
[2020-08-06] MEDS: DULoxetine 30 MG Cap PO SCH (08:38)
[2020-08-06] MEDS: Potassium Chloride 20 MEQ Tab.ER PO SCH (08:38)
[2020-08-06] MEDS: Memantine 10 MG Tab PO SCH (08:39)
[2020-08-06] MEDS: Carboxymethylcellulose Sodium 0.5% Ophth Soln 15 ML Bottle EYEBOTH SCH ×3 (08:39→20:40)
[2020-08-06] MEDS: Ferrous Sulfate 325 MG Tab PO SCH (08:39)
[2020-08-06] MEDS: Levothyroxine 88 MCG Tab PO SCH (08:40)
[2020-08-06] MEDS: QUEtiapine 25 MG Tab PO SCH ×2 (08:40→15:52)
[2020-08-06] MEDS: Sodium Chloride 0.9% 10 ML Syringe FLUSH PRN ×2 (08:42→15:02)
[2020-08-06] MEDS: methylPREDNISolone Sodium Succinate 125 MG/2 ML SDV IVPUSH SCH (08:42)
[2020-08-06] MEDS: ClonazePAM 0.5 MG Tab PO SCH (08:52)
--- NOTE | 2020-08-06 15:12 | PCM.PN ---
- General Info Date of Service: 08/06/20 Subjective Update: Repeat EKG yesterday showed resolution of prolonged QTc interval that was present on ER EKG prior to getting Levofloxacin. She has not had any issues with IV infusion since admission. Breathing she states same. Her sodium has gone up since she received SoluMedrol in ER and on floor x 1 so this was discontinued. She is eating, loves chocolate ice cream. Does have choking episodes with water but Belinda and her family state this has been going on for years. She has not been drinking much for water, encourage fluids. C. difficile negative. - Patient Data Vitals - Most Recent: Last Vital Signs Temp 98.4 F 08/06/20 09:55 Pulse 79 08/06/20 09:55 Resp 22 H 08/06/20 09:55 BP 100/59 L 08/06/20 09:55 Pulse Ox 94 L 08/06/20 09:55 Weight - Most Recent: 156 lb 3.2 oz I&O - Last 24 Hours: Intake & Output 08/06/20 08/06/20 08/06/20 06:59 14:59 22:59 Intake Total 300 Balance 300 Lab Results Last 24 Hours: Laboratory Results - last 24 hr 08/06/20 08/06/20 Range/Units 06:15 06:15 WBC 12.7 H (3.0-10.3) x10-3/uL RBC 3.66 (3.60-5.20) x10(6)uL Hgb 9.6 L (11.4-15.5) g/dL Hct 31.5 L (34.2-48.2) % MCV 86.0 (76.7-100.5) fL MCH 26.3 (23.9-33.9) pg MCHC 30.6 L (31.9-34.8) g/dL RDW 17.3 H (12.3-16.5) % Plt Count 331 (151-488) x10(3)uL MPV 9.6 (7.1-12.4) fL Neut % (Auto) 84.8 H (30.8-76.2) % Lymph % (Auto) 9.0 L (18.4-52.1) % Stanley % (Auto) 5.8 (4.4-15.7) % Eos % (Auto) 0.0 L (0.6-8.1) % Baso % (Auto) 0.4 (0.2-1.5) % Neut # (Auto) 10.7 H (1.5-6.3) x10-3/uL Lymph # (Auto) 1.1 (1.0-4.4) x10-3/uL Stanley # (Auto) 0.7 (0.3-1.0) x10-3/uL Eos # (Auto) 0.0 (0.0-0.8) x10-3/uL Baso # (Auto) 0.1 (0.0-0.1) x10-3/uL Sodium 152 H (135-145) mmol/L Potassium 3.9 (3.5-5.3) mmol/L Chloride 112 H D (100-110) mmol/L Carbon Dioxide 36 H (21-32) mmol/L BUN 33 H (7-18) mg/dL Creatinine 1.2 H (0.55-1.02) mg/dL Est Cr Clr Drug Dosing 29.75 mL/min Estimated GFR (MDRD) 43 L (>60) BUN/Creatinine Ratio 27.5 H (9-20) Glucose 154 H (80-116) mg/dL Calcium 8.5 L (8.6-10.2) mg/dL Rolf Results Last 24 Hours: Microbiology 08/04/20 14:43 Aerobic Blood Culture - Preliminary Blood - Venous - Lab Draw NO GROWTH AFTER 2 DAYS Anaerobic Blood Culture - Preliminary NO GROWTH AFTER 2 DAYS 08/04/20 14:25 Aerobic Blood Culture - Preliminary Blood - Venous NO GROWTH AFTER 2 DAYS Anaerobic Blood Culture - Preliminary NO GROWTH AFTER 2 DAYS Med Orders - Current: Current Medications Acetaminophen (Acetaminophen 325 Mg Tab) 650 mg PO Q4H PRN PRN Reason: Pain Albuterol/Ipratropium (Albuterol/Ipratropium 3.0-0.5 Mg/3 Ml Neb Soln) 3 ml INH Q4H PRN PRN Reason: Shortness Of Breath/wheezing Artificial Tears (Carboxymethylcellulose Sodium 0.5% Ophth Soln 15 Ml Bottle) 0 ml EYEBOTH TID [facility] Last Admin: 08/06/20 14:53 Dose: 1 drop Documented by: Aspirin (Aspirin 81 Mg Tab.Ec) 81 mg PO 21 [facility] Last Admin: 08/05/20 21:00 Dose: 81 mg Documented by: Clonazepam (Clonazepam 0.5 Mg Tab) 0.5 mg PO 09 [facility] Last Admin: 08/06/20 08:52 Dose: 0.5 mg Documented by: Diphenhydramine HCl (Diphenhydramine 50 Mg/Ml Sdv) 12.5 mg IVPUSH Q48H [facility] Last Admin: 08/06/20 15:03 Dose: 12.5 mg Documented by: Duloxetine HCl (Duloxetine 30 Mg Cap) 90 mg PO DAILY [facility] Last Admin: 08/06/20 08:38 Dose: 90 mg Documented by: Enoxaparin Sodium (Enoxaparin 30 Mg/0.3 Ml Syringe) 30 mg SUBCUT Q24H [facility] Last Admin: 08/05/20 16:33 Dose: 30 mg Documented by: Ferrous Sulfate (Ferrous Sulfate 325 Mg Tab) 325 mg PO DAILY [facility] Last Admin: 08/06/20 08:39 Dose: 325 mg Documented by: Levofloxacin/Dextrose (Levaquin In D5w 500 Mg/100 Ml) 100 mls @ 100 mls/hr IV Q48H [facility] Levothyroxine Sodium (Levothyroxine 88 Mcg Tab) 88 mcg PO DAILY [facility] Last Admin: 08/06/20 08:40 Dose: 88 mcg Documented by: Melatonin (Melatonin 3 Mg Tab) 6 mg PO BEDTIME [facility] Last Admin: 08/05/20 21:00 Dose: 6 mg Documented by: Memantine (Memantine 10 Mg Tab) 10 mg PO DAILY [facility] Last Admin: 08/06/20 08:39 Dose: 10 mg Documented by: Mirtazapine (Mirtazapine 15 Mg Tab) 7.5 mg PO BEDTIME [facility] Last Admin: 08/05/20 21:00 Dose: 7.5 mg Documented by: Quetiapine Fumarate (Quetiapine 25 Mg Tab) 25 mg PO DAILY@0900 [facility] Last Admin: 08/06/20 08:40 Dose: 25 mg Documented by: Quetiapine Fumarate (Quetiapine 25 Mg Tab) 37.5 mg PO DAILY@1600 [facility] Last Admin: 08/05/20 16:31 Dose: 37.5 mg Documented by: Quetiapine Fumarate (Quetiapine 50 Mg Tab) 150 mg PO BEDTIME [facility] Last Admin: 08/05/20 21:01 Dose: 150 mg Documented by: Sodium Chloride (Sodium Chloride 0.9% 10 Ml Syringe) 10 ml FLUSH DAILY PRN PRN Reason: Keep Vein Open Last Admin: 08/06/20 15:02 Dose: 10 ml Documented by: Discontinued Medications Albuterol/Ipratropium (Albuterol/Ipratropium 3.0-0.5 Mg/3 Ml Neb Soln) 3 ml NEB ONETIME ONE Stop: 08/04/20 15:21 Last Admin: 08/04/20 15:37 Dose: 3 ml Documented by: Diphenhydramine HCl (Diphenhydramine 50 Mg/Ml Sdv) 12.5 mg IVPUSH ONETIME ONE Stop: 08/04/20 17:01 Last Admin: 08/04/20 17:07 Dose: 12.5 mg Documented by: Sodium Chloride (Normal Saline) 1,000 mls @ 125 mls/hr IV ASDIRECTED [facility] Last Admin: 08/05/20 04:46 Dose: 125 mls/hr Documented by: Piperacillin Sod/Tazobactam (Sod 3.375 gm/ Sodium Chloride) 50 mls @ 100 mls/hr IV Q6H [facility] Last Admin: 08/04/20 17:14 Dose: Not Given Documented by: Levofloxacin/Dextrose 750 mg/ (Premix) 150 mls @ 100 mls/hr IV ONETIME ONE Stop: 08/04/20 17:14 Last Admin: 08/04/20 15:57 Dose: 100 mls/hr Documented by: Methylprednisolone Sodium Succinate (Methylprednisolone Sodium Succinate 125 Mg/2 Ml Sdv) 125 mg IVPUSH DAILY [facility] Last Admin: 08/04/20 15:37 Dose: 125 mg Documented by: Methylprednisolone Sodium Succinate (Methylprednisolone Sodium Succinate 125 Mg/2 Ml Sdv) 60 mg IVPUSH DAILY [facility] Last Admin: 08/06/20 08:42 Dose: 60 mg Documented by: Potassium Chloride (Potassium Chloride 20 Meq Tab.Er) 20 meq PO TID [facility] Last Admin: 08/06/20 08:38 Dose: 20 meq Documented by: Sodium Chloride (Sodium Chloride 0.9% 10 Ml Syringe) 10 ml FLUSH DAILY [facility] - Exam General: Alert, Oriented (person), Cooperative, No Acute Distress Lungs: Clear to Auscultation, Normal Respiratory Effort, Decreased Breath Sounds (bases) Cardiovascular: Regular Rate, Regular Rhythm GI/Abdominal Exam: Normal Bowel Sounds, Soft, Non-Tender, No Distention Extremities: No Pedal Edema Peripheral Pulses: 2+: Radial (L), Radial (R) - Patient Data Lab Results Last 24 hrs: Laboratory Results - last 24 hr 08/06/20 08/06/20 Range/Units 06:15 06:15 WBC 12.7 H (3.0-10.3) x10-3/uL RBC 3.66 (3.60-5.20) x10(6)uL Hgb 9.6 L (11.4-15.5) g/dL Hct 31.5 L (34.2-48.2) % MCV 86.0 (76.7-100.5) fL MCH 26.3 (23.9-33.9) pg MCHC 30.6 L (31.9-34.8) g/dL RDW 17.3 H (12.3-16.5) % Plt Count 331 (151-488) x10(3)uL MPV 9.6 (7.1-12.4) fL Neut % (Auto) 84.8 H (30.8-76.2) % Lymph % (Auto) 9.0 L (18.4-52.1) % Stanley % (Auto) 5.8 (4.4-15.7) % Eos % (Auto) 0.0 L (0.6-8.1) % Baso % (Auto) 0.4 (0.2-1.5) % Neut # (Auto) 10.7 H (1.5-6.3) x10-3/uL Lymph # (Auto) 1.1 (1.0-4.4) x10-3/uL Stanley # (Auto) 0.7 (0.3-1.0) x10-3/uL Eos # (Auto) 0.0 (0.0-0.8) x10-3/uL Baso # (Auto) 0.1 (0.0-0.1) x10-3/uL Sodium 152 H (135-145) mmol/L Potassium 3.9 (3.5-5.3) mmol/L Chloride 112 H D (100-110) mmol/L Carbon Dioxide 36 H (21-32) mmol/L BUN 33 H (7-18) mg/dL Creatinine 1.2 H (0.55-1.02) mg/dL Est Cr Clr Drug Dosing 29.75 mL/min Estimated GFR (MDRD) 43 L (>60) BUN/Creatinine Ratio 27.5 H (9-20) Glucose 154 H (80-116) mg/dL Calcium 8.5 L (8.6-10.2) mg/dL Result Diagrams: 08/06/20 06:15 08/06/20 06:15 Rolf Results Last 24 hrs: Microbiology 08/04/20 14:43 Aerobic Blood Culture - Preliminary Blood - Venous - Lab Draw NO GROWTH AFTER 2 DAYS Anaerobic Blood Culture - Preliminary NO GROWTH AFTER 2 DAYS 08/04/20 14:25 Aerobic Blood Culture - Preliminary Blood - Venous NO GROWTH AFTER 2 DAYS Anaerobic Blood Culture - Preliminary NO GROWTH AFTER 2 DAYS Sepsis Event Note - Evaluation Sepsis Screening Result: No Definite Risk - Focused Exam Vital Signs: Vital Signs Temp Pulse Resp BP Pulse Ox 08/06/20 09:55 98.4 F 79 22 H 100/59 L 94 L 08/06/20 06:00 98.2 F 80 18 103/60 93 L - Problem List & Annotations (1) COPD exacerbation SNOMED Code(s): 773907754 Code(s): J44.1 - CHRONIC OBSTRUCTIVE PULMONARY DISEASE W (ACUTE) EXACERBATION Status: Acute Current Visit: Yes (2) Acute kidney failure SNOMED Code(s): 97462209 Code(s): N17.9 - ACUTE KIDNEY FAILURE, UNSPECIFIED Status: Acute Current Visit: Yes Annotation/Comment:: Improving, BUN 33, Cr 1.2 (3) Hypokalemia SNOMED Code(s): 88069900 Code(s): E87.6 - HYPOKALEMIA Status: Acute Current Visit: Yes Annotation/Comment:: Resolved, 3.9 (4) Hypernatremia SNOMED Code(s): 004589323 Code(s): E87.0 - HYPEROSMOLALITY AND HYPERNATREMIA Status: Acute Current Visit: Yes Annotation/Comment:: secondary to steroids. Discontinue solumedrol. Encouarge 2L of water/day. (5) Dehydration SNOMED Code(s): 86352594 Code(s): E86.0 - DEHYDRATION Status: Acute Current Visit: Yes Annotation/Comment:: Improving. (6) CHF (congestive heart failure) SNOMED Code(s): 68907788 Code(s): I50.9 - HEART FAILURE, UNSPECIFIED Status: Chronic Current Visit: Yes (7) COPD (chronic obstructive pulmonary disease) SNOMED Code(s): 23190933 Code(s): J44.9 - CHRONIC OBSTRUCTIVE PULMONARY DISEASE, UNSPECIFIED Status: Chronic Current Visit: Yes (8) Dementia SNOMED Code(s): 19570757 Code(s): F03.90 - UNSPECIFIED DEMENTIA WITHOUT BEHAVIORAL DISTURBANCE Status: Acute Current Visit: No Qualifiers: Dementia type: Alzheimer's Alzheimer's disease onset: late-onset Dementia behavioral disturbance: with behavioral disturbance Qualified Code(s): G30.1 - Alzheimer's disease with late onset; F02.81 - Dementia in other diseases classified elsewhere with behavioral disturbance (9) Dysphagia SNOMED Code(s): 15867610, 516209971 Code(s): R13.10 - DYSPHAGIA, UNSPECIFIED Status: Chronic Current Visit: Yes Qualifiers: Dysphagia type: oral phase Qualified Code(s): R13.11 - Dysphagia, oral phase (10) Diarrhea SNOMED Code(s): 09074147 Code(s): R19.7 - DIARRHEA, UNSPECIFIED Status: Resolved Current Visit: Yes Annotation/Comment:: C. difficile was negative. - Problem List Review Problem List Initiated/Reviewed/Updated: Yes - My Orders Last 24 Hours: My Active Orders 08/05/20 14:37 Convert IV to Peripheral Lock [Convert IV to Saline Lock] [OM.PC] Routine 08/05/20 14:38 Dietary Supplements [RC] WITHMEALSANDBED 08/05/20 14:40 EKG 12 Lead [EK] Routine 08/05/20 14:54 Sodium Chloride 0.9% [Saline Flush] 10 ml FLUSH DAILY PRN 08/06/20 08:47 Intake and Output [RC] QSHIFT 08/06/20 08:48 Encourage Fluids [Oral Fluid Challenge] [RC] ASDIRECTED 08/06/20 15:30 diphenhydrAMINE [Benadryl] 12.5 mg IVPUSH Q48H 08/06/20 16:00 Levofloxacin/Dextrose 5%-Water [Levaquin in D5W 500 MG/100 ML] 100 ml IV Q48H 08/07/20 06:00 CBC WITH AUTO DIFF [HEME] Routine COMPREHENSIVE METABOLIC PN,CMP [CHEM] Routine - Plan Plan:: 1. COPD exacerbation: pretreat with Benadryl 12.5 mg, monitor for signs of anaphylaxis. Levofloxacin 500 mg IV q48h. Discontinue SoluMedrol due hypernatremia. DuoNebs q6h as needed. repeat labs. 2. Hypokalemia: Resolved, 3.9. Discontinue KCL supplements. 3. SCOTT/Dehydration: Saline lock. Cr 1.2, improving encourage oral intake. 4. Diarrhea: resolved. 5. Discharge planning: Anticipate discharge on Saturday to [facility].
[2020-08-06] MEDS ORDERED: diphenhydrAMINE 50 MG/ML SDV IVPUSH SCH (15:30)
[2020-08-06] MEDS: Enoxaparin 30 MG/0.3 ML Syringe SUBCUT SCH (15:52)
[2020-08-06] MEDS ORDERED: Levofloxacin/Dextrose 5%-Water 100 ML IV SCH (16:00)
[2020-08-06] MEDS: Aspirin 81 MG Tab.EC PO SCH (20:39)
[2020-08-06] MEDS: Melatonin 3 MG Tab PO SCH (20:40)
[2020-08-06] MEDS: Mirtazapine 15 MG Tab PO SCH (20:41)
[2020-08-07] MEDS: QUEtiapine 25 MG Tab PO SCH ×2 (09:24→16:29)
[2020-08-07] MEDS: Levothyroxine 88 MCG Tab PO SCH (09:24)
[2020-08-07] MEDS: Memantine 10 MG Tab PO SCH (09:24)
[2020-08-07] MEDS: Carboxymethylcellulose Sodium 0.5% Ophth Soln 15 ML Bottle EYEBOTH SCH ×3 (09:24→20:22)
[2020-08-07] MEDS: Ferrous Sulfate 325 MG Tab PO SCH (09:25)
[2020-08-07] MEDS: DULoxetine 30 MG Cap PO SCH (09:25)
[2020-08-07] MEDS: ClonazePAM 0.5 MG Tab PO SCH (09:27)
--- NOTE | 2020-08-07 14:25 | PCM.PN ---
- General Info Date of Service: 08/07/20 Subjective Update: She states she feels good, no complaint of pain. Her son is here with his , they are moving her things into [facility] today. No diarrhea per patient. Encouraging fluid intake. No choking episodes. - Patient Data Vitals - Most Recent: Last Vital Signs Temp 97.9 F 08/07/20 07:15 Pulse 79 08/07/20 07:15 Resp 22 H 08/07/20 07:15 BP 101/63 08/07/20 07:15 Pulse Ox 94 L 08/07/20 07:15 Weight - Most Recent: 156 lb 3.2 oz I&O - Last 24 Hours: Intake & Output 08/06/20 08/07/20 08/07/20 22:59 06:59 14:59 Intake Total 1700 Output Total 400 100 Balance 1300 -100 Lab Results Last 24 Hours: Laboratory Results - last 24 hr 08/07/20 Range/Units 06:12 Sodium 149 H (135-145) mmol/L Potassium 4.5 (3.5-5.3) mmol/L Chloride 110 (100-110) mmol/L Carbon Dioxide 35 H (21-32) mmol/L BUN 30 H (7-18) mg/dL Creatinine 1.1 H (0.55-1.02) mg/dL Est Cr Clr Drug Dosing 32.45 mL/min Estimated GFR (MDRD) 48 L (>60) BUN/Creatinine Ratio 27.3 H (9-20) Glucose 127 H (80-116) mg/dL Calcium 8.5 L (8.6-10.2) mg/dL Total Bilirubin 0.3 (0.1-1.3) mg/dL AST 14 D (5-25) IU/L ALT 25 D (12-36) U/L Alkaline Phosphatase 136 H (56-112) IU/L Total Protein 5.5 L (6.0-8.0) g/dL Albumin 2.5 L (3.2-4.6) g/dL Globulin 3.0 g/dL Albumin/Globulin Ratio 0.8 Rolf Results Last 24 Hours: Microbiology 08/04/20 14:43 Aerobic Blood Culture - Preliminary Blood - Venous - Lab Draw NO GROWTH AFTER 2 DAYS Anaerobic Blood Culture - Preliminary NO GROWTH AFTER 2 DAYS 08/04/20 14:25 Aerobic Blood Culture - Preliminary Blood - Venous NO GROWTH AFTER 2 DAYS Anaerobic Blood Culture - Preliminary NO GROWTH AFTER 2 DAYS Med Orders - Current: Current Medications Acetaminophen (Acetaminophen 325 Mg Tab) 650 mg PO Q4H PRN PRN Reason: Pain Albuterol/Ipratropium (Albuterol/Ipratropium 3.0-0.5 Mg/3 Ml Neb Soln) 3 ml INH Q4H PRN PRN Reason: Shortness Of Breath/wheezing Artificial Tears (Carboxymethylcellulose Sodium 0.5% Ophth Soln 15 Ml Bottle) 0 ml EYEBOTH TID [facility] Last Admin: 08/07/20 09:24 Dose: 1 drop Documented by: Aspirin (Aspirin 81 Mg Tab.Ec) 81 mg PO 21 [facility] Last Admin: 08/06/20 20:39 Dose: 81 mg Documented by: Clonazepam (Clonazepam 0.5 Mg Tab) 0.5 mg PO 09 [facility] Last Admin: 08/07/20 09:27 Dose: 0.5 mg Documented by: Diphenhydramine HCl (Diphenhydramine 50 Mg/Ml Sdv) 12.5 mg IVPUSH Q48H [facility] Last Admin: 08/06/20 15:03 Dose: 12.5 mg Documented by: Duloxetine HCl (Duloxetine 30 Mg Cap) 90 mg PO DAILY [facility] Last Admin: 08/07/20 09:25 Dose: 90 mg Documented by: Enoxaparin Sodium (Enoxaparin 30 Mg/0.3 Ml Syringe) 30 mg SUBCUT Q24H [facility] Last Admin: 08/06/20 15:52 Dose: 30 mg Documented by: Ferrous Sulfate (Ferrous Sulfate 325 Mg Tab) 325 mg PO DAILY [facility] Last Admin: 08/07/20 09:25 Dose: 325 mg Documented by: Levofloxacin/Dextrose (Levaquin In D5w 500 Mg/100 Ml) 100 mls @ 100 mls/hr IV Q48H [facility] Last Admin: 08/06/20 15:34 Dose: 100 mls/hr Documented by: Levothyroxine Sodium (Levothyroxine 88 Mcg Tab) 88 mcg PO DAILY [facility] Last Admin: 08/07/20 09:24 Dose: 88 mcg Documented by: Melatonin (Melatonin 3 Mg Tab) 6 mg PO BEDTIME [facility] Last Admin: 08/06/20 20:40 Dose: 6 mg Documented by: Memantine (Memantine 10 Mg Tab) 10 mg PO DAILY [facility] Last Admin: 08/07/20 09:24 Dose: 10 mg Documented by: Mirtazapine (Mirtazapine 15 Mg Tab) 7.5 mg PO BEDTIME [facility] Last Admin: 08/06/20 20:41 Dose: 7.5 mg Documented by: Quetiapine Fumarate (Quetiapine 25 Mg Tab) 25 mg PO DAILY@0900 [facility] Last Admin: 08/07/20 09:24 Dose: 25 mg Documented by: Quetiapine Fumarate (Quetiapine 25 Mg Tab) 37.5 mg PO DAILY@1600 [facility] Last Admin: 08/06/20 15:52 Dose: 37.5 mg Documented by: Quetiapine Fumarate (Quetiapine 50 Mg Tab) 150 mg PO BEDTIME [facility] Last Admin: 08/06/20 20:41 Dose: 150 mg Documented by: Sodium Chloride (Sodium Chloride 0.9% 10 Ml Syringe) 10 ml FLUSH DAILY PRN PRN Reason: Keep Vein Open Last Admin: 08/06/20 15:02 Dose: 10 ml Documented by: Discontinued Medications Albuterol/Ipratropium (Albuterol/Ipratropium 3.0-0.5 Mg/3 Ml Neb Soln) 3 ml NEB ONETIME ONE Stop: 08/04/20 15:21 Last Admin: 08/04/20 15:37 Dose: 3 ml Documented by: Diphenhydramine HCl (Diphenhydramine 50 Mg/Ml Sdv) 12.5 mg IVPUSH ONETIME ONE Stop: 08/04/20 17:01 Last Admin: 08/04/20 17:07 Dose: 12.5 mg Documented by: Sodium Chloride (Normal Saline) 1,000 mls @ 125 mls/hr IV ASDIRECTED [facility] Last Admin: 08/05/20 04:46 Dose: 125 mls/hr Documented by: Piperacillin Sod/Tazobactam (Sod 3.375 gm/ Sodium Chloride) 50 mls @ 100 mls/hr IV Q6H [facility] Last Admin: 08/04/20 17:14 Dose: Not Given Documented by: Levofloxacin/Dextrose 750 mg/ (Premix) 150 mls @ 100 mls/hr IV ONETIME ONE Stop: 08/04/20 17:14 Last Admin: 08/04/20 15:57 Dose: 100 mls/hr Documented by: Methylprednisolone Sodium Succinate (Methylprednisolone Sodium Succinate 125 Mg/2 Ml Sdv) 125 mg IVPUSH DAILY [facility] Last Admin: 08/04/20 15:37 Dose: 125 mg Documented by: Methylprednisolone Sodium Succinate (Methylprednisolone Sodium Succinate 125 Mg/2 Ml Sdv) 60 mg IVPUSH DAILY [facility] Last Admin: 08/06/20 08:42 Dose: 60 mg Documented by: Potassium Chloride (Potassium Chloride 20 Meq Tab.Er) 20 meq PO TID [facility] Last Admin: 08/06/20 08:38 Dose: 20 meq Documented by: Sodium Chloride (Sodium Chloride 0.9% 10 Ml Syringe) 10 ml FLUSH DAILY [facility] - Exam Quality Assessment: Supplemental Oxygen General: Alert, Oriented (person, place; pleasantly confused;), Cooperative, No Acute Distress Lungs: Clear to Auscultation, Normal Respiratory Effort, Decreased Breath Sounds (bases). No: Crackles, Wheezing Cardiovascular: Regular Rate, Regular Rhythm GI/Abdominal Exam: Normal Bowel Sounds, Soft, Non-Tender, No Distention Extremities: No Pedal Edema - Patient Data Lab Results Last 24 hrs: Laboratory Results - last 24 hr 08/07/20 Range/Units 06:12 Sodium 149 H (135-145) mmol/L Potassium 4.5 (3.5-5.3) mmol/L Chloride 110 (100-110) mmol/L Carbon Dioxide 35 H (21-32) mmol/L BUN 30 H (7-18) mg/dL Creatinine 1.1 H (0.55-1.02) mg/dL Est Cr Clr Drug Dosing 32.45 mL/min Estimated GFR (MDRD) 48 L (>60) BUN/Creatinine Ratio 27.3 H (9-20) Glucose 127 H (80-116) mg/dL Calcium 8.5 L (8.6-10.2) mg/dL Total Bilirubin 0.3 (0.1-1.3) mg/dL AST 14 D (5-25) IU/L ALT 25 D (12-36) U/L Alkaline Phosphatase 136 H (56-112) IU/L Total Protein 5.5 L (6.0-8.0) g/dL Albumin 2.5 L (3.2-4.6) g/dL Globulin 3.0 g/dL Albumin/Globulin Ratio 0.8 Result Diagrams: 08/06/20 06:15 08/07/20 06:12 Rolf Results Last 24 hrs: Microbiology 08/04/20 14:43 Aerobic Blood Culture - Preliminary Blood - Venous - Lab Draw NO GROWTH AFTER 2 DAYS Anaerobic Blood Culture - Preliminary NO GROWTH AFTER 2 DAYS 08/04/20 14:25 Aerobic Blood Culture - Preliminary Blood - Venous NO GROWTH AFTER 2 DAYS Anaerobic Blood Culture - Preliminary NO GROWTH AFTER 2 DAYS Sepsis Event Note - Evaluation Sepsis Screening Result: No Definite Risk - Focused Exam Vital Signs: Vital Signs Temp Pulse Resp BP Pulse Ox 08/07/20 07:15 97.9 F 79 22 H 101/63 94 L 08/07/20 04:00 97.9 F 85 20 93/63 91 L - Problem List & Annotations (1) COPD exacerbation SNOMED Code(s): 079586002 Code(s): J44.1 - CHRONIC OBSTRUCTIVE PULMONARY DISEASE W (ACUTE) EXACERBATION Status: Acute Current Visit: Yes (2) Acute kidney failure SNOMED Code(s): 72134057 Code(s): N17.9 - ACUTE KIDNEY FAILURE, UNSPECIFIED Status: Resolved Current Visit: Yes Annotation/Comment:: Resolved BUN 30, Cr 1.1 (3) Hypokalemia SNOMED Code(s): 09469485 Code(s): E87.6 - HYPOKALEMIA Status: Resolved Current Visit: Yes Annotation/Comment:: Resolved, 4.5 (4) Hypernatremia SNOMED Code(s): 888258634 Code(s): E87.0 - HYPEROSMOLALITY AND HYPERNATREMIA Status: Acute Current Visit: Yes Annotation/Comment:: secondary to steroids. Discontinue solumedrol. Encouarge 2L of water/day. Improving since steroid discontinued. (5) Dehydration SNOMED Code(s): 23672624 Code(s): E86.0 - DEHYDRATION Status: Resolved Current Visit: Yes Annotation/Comment:: Improving. (6) CHF (congestive heart failure) SNOMED Code(s): 03175333 Code(s): I50.9 - HEART FAILURE, UNSPECIFIED Status: Chronic Current Visit: Yes (7) COPD (chronic obstructive pulmonary disease) SNOMED Code(s): 24887492 Code(s): J44.9 - CHRONIC OBSTRUCTIVE PULMONARY DISEASE, UNSPECIFIED Status: Chronic Current Visit: Yes (8) Dementia SNOMED Code(s): 68121063 Code(s): F03.90 - UNSPECIFIED DEMENTIA WITHOUT BEHAVIORAL DISTURBANCE Status: Acute Current Visit: No Qualifiers: Dementia type: Alzheimer's Alzheimer's disease onset: late-onset Dementia behavioral disturbance: with behavioral disturbance Qualified Code(s): G30.1 - Alzheimer's disease with late onset; F02.81 - Dementia in other diseases classified elsewhere with behavioral disturbance (9) Dysphagia SNOMED Code(s): 00500013, 786385776 Code(s): R13.10 - DYSPHAGIA, UNSPECIFIED Status: Chronic Current Visit: Yes Qualifiers: Dysphagia type: oral phase Qualified Code(s): R13.11 - Dysphagia, oral phase (10) Diarrhea SNOMED Code(s): 54422404 Code(s): R19.7 - DIARRHEA, UNSPECIFIED Status: Resolved Current Visit: Yes Annotation/Comment:: C. difficile was negative. - Problem List Review Problem List Initiated/Reviewed/Updated: Yes - My Orders Last 24 Hours: My Active Orders 08/06/20 15:30 diphenhydrAMINE [Benadryl] 12.5 mg IVPUSH Q48H 08/06/20 16:00 Levofloxacin/Dextrose 5%-Water [Levaquin in D5W 500 MG/100 ML] 100 ml IV Q48H 08/08/20 06:00 BASIC METABOLIC PANEL,BMP [CHEM] Routine CBC WITH AUTO DIFF [HEME] Routine - Plan Plan:: 1. COPD exacerbation: pretreat with Benadryl 12.5 mg, monitor for signs of anaphylaxis. Levofloxacin 500 mg IV q48h. DuoNebs q6h as needed. 2. Hypernatremia/Hypokalemia: Na: 149, KCL: 4.5. 3. SCOTT/Dehydration: Saline lock. Cr 1.1, improving encourage oral intake. 4. Diarrhea: resolved. 5. Discharge planning: Anticipate discharge on Saturday to [facility].
[2020-08-07] MEDS: Enoxaparin 30 MG/0.3 ML Syringe SUBCUT SCH (16:30)
[2020-08-07] MEDS: Aspirin 81 MG Tab.EC PO SCH (20:22)
[2020-08-07] MEDS: Melatonin 3 MG Tab PO SCH (20:23)
[2020-08-07] MEDS: Mirtazapine 15 MG Tab PO SCH (20:23)
[2020-08-08] MEDS: ClonazePAM 0.5 MG Tab PO SCH (08:13)
[2020-08-08] MEDS: Memantine 10 MG Tab PO SCH (08:14)
[2020-08-08] MEDS: DULoxetine 30 MG Cap PO SCH (08:14)
[2020-08-08] MEDS: Ferrous Sulfate 325 MG Tab PO SCH (08:15)
[2020-08-08] MEDS: Carboxymethylcellulose Sodium 0.5% Ophth Soln 15 ML Bottle EYEBOTH SCH ×2 (08:15→13:02)
[2020-08-08] MEDS: Levothyroxine 88 MCG Tab PO SCH (08:16)
[2020-08-08] MEDS: QUEtiapine 25 MG Tab PO SCH (08:16)
[2020-08-08 09:20] VITALS: PULSE 75
[2020-08-08 11:08] VITALS: BP 103/62
[2020-08-08] MEDS ORDERED: Levofloxacin 750 MG Tab PO ONE (14:00)
--- NOTE | 2020-08-08 15:43 | PCM.DCSUM1 ---
Discharge Summary - Hospital Course HPI Initial Comments: Belinda present to ER today by ambulance for worsening shortness of breath, confusion and incontinence. Home Health nurse and family saw her Saturday and plan was to move her to care suites at [facility] as she was falling more and felt she needed more assistance. Family said she looked fine on Saturday and did not get a call about anything until [facility] called today notifying them that she was being taken to ER. She was just discharged 07/27 for pneumonia, finished antibiotics Sat/Sat this week was on Azithromycin and Rocephin. She was discharged with home oxygen which was new for her and part of reason that she's been falling more. No fevers, cough. Diarrhea with recent antibiotics course. ROS limited due to hard of hearing and confusion. Hypotensive on arrival, corrected with IV fluids. ER course: WBC normal at 10.3 with no left shift, CRP 4.0, Lactic acid 3.2, K 2.7, Cr 1.9(normal on 07/27), BUN 36. Discharged on 2.5 L of oxygen by nasal cannula, when she arrived was 88% was turned up to 5L then 4L, came to floor on 3L with saturations 93%. Chest x-ray showed resolving pneumonia. COVID negative. Afebrile. Troponin negative. BNP 214. She has been vaccinated for Covid. Diagnosis: Stroke: No - Discharge Data Discharge Date: 08/08/20 ([facility]) Discharge Disposition: Home, W Home Health Agency 06 Condition: Good - Referral to Home Health Date of Face to Face Encounter: 08/08/20 Reason for Homebound Status: [facility] Primary Care Physician: Camila Chanel NP Skilled Need: assisted - Discharge Diagnosis/Problem(s) (1) COPD exacerbation SNOMED Code(s): 494246295 ICD Code: J44.1 - CHRONIC OBSTRUCTIVE PULMONARY DISEASE W (ACUTE) EXACERBATION Status: Resolved Current Visit: Yes Problem Details: Resolved (2) Acute kidney failure SNOMED Code(s): 88182847 ICD Code: N17.9 - ACUTE KIDNEY FAILURE, UNSPECIFIED Status: Resolved Current Visit: Yes Problem Details: Resolved BUN 29, Cr 1.0 (3) Hypokalemia SNOMED Code(s): 67901623 ICD Code: E87.6 - HYPOKALEMIA Status: Resolved Current Visit: Yes Problem Details: Resolved, 4.5 (4) Hypernatremia SNOMED Code(s): 792588084 ICD Code: E87.0 - HYPEROSMOLALITY AND HYPERNATREMIA Status: Acute Current Visit: Yes Problem Details: secondary to steroids. Discontinue solumedrol. Encouarge 2L of water/day. Improving since steroid discontinued. (5) Dehydration SNOMED Code(s): 24482289 ICD Code: E86.0 - DEHYDRATION Status: Resolved Current Visit: Yes Problem Details: Improving. (6) CHF (congestive heart failure) SNOMED Code(s): 73453921 ICD Code: I50.9 - HEART FAILURE, UNSPECIFIED Status: Chronic Current Visit: Yes (7) COPD (chronic obstructive pulmonary disease) SNOMED Code(s): 55081151 ICD Code: J44.9 - CHRONIC OBSTRUCTIVE PULMONARY DISEASE, UNSPECIFIED Status: Chronic Current Visit: Yes (8) Dementia SNOMED Code(s): 37770531 ICD Code: F03.90 - UNSPECIFIED DEMENTIA WITHOUT BEHAVIORAL DISTURBANCE Status: Acute Current Visit: No Qualifiers: Dementia type: Alzheimer's Alzheimer's disease onset: late-onset Dementia behavioral disturbance: with behavioral disturbance Qualified Code(s): G30.1 - Alzheimer's disease with late onset; F02.81 - Dementia in other diseases classified elsewhere with behavioral disturbance (9) Dysphagia SNOMED Code(s): 75747101, 479830068 ICD Code: R13.10 - DYSPHAGIA, UNSPECIFIED Status: Chronic Current Visit: Yes Qualifiers: Dysphagia type: oral phase Qualified Code(s): R13.11 - Dysphagia, oral phase (10) Diarrhea SNOMED Code(s): 93332466 ICD Code: R19.7 - DIARRHEA, UNSPECIFIED Status: Resolved Current Visit: Yes Problem Details: C. difficile was negative. - Patient Summary/Data Hospital Course: Belinda came in requiring higher levels of oxygen than at home, 5L initially then 4L in ER, weaned down to 3.5L, on Monday 08/07 we were able to wean her down to 2L which is her home level of oxygen. Maintained her saturations between 88- 92%, reassessed on room air this morning off oxygen for 10 min, she desaturated to 86%, resumed oxygen at 2L. She had 2 doses of DuoNebs during hospital stay, no noticeable improvement in air exchange or shortness of breath feeling. She had reaction to Levofloxacin that was started in ER, she had red streak but no itching or pain, gave Benadryl which resolved redness. She was premedicated with Benadryl prior to Levofloxacin infusion. Her dose was decreased to 500 mg IV q48h, changed back to 750 mg po x 1 as her kidney function improved. She completed 5 day course and will not go home on antibiotics. Her Chest x-ray showed resolving pneumonia. She received SoluMedrol 125 mg x 1 in ER, then 60 mg IV HOD#1, she had elevation of her sodium in spite of IV fluids. SoluMedrol was discontinued, IV fluids discontinued and saline locked. Encouraged free water intake, 2L/day. Sodium was 152, on discharge down to 150. She had acute kidney injury on admission Cr 1.9, BUN 36, on discharge Cr 1.0, BUN 29. Had diarrhea on admission, C. difficile was negative. Diarrhea resolved during hospital stay. Her potassium on admission was 2.7, replaced with oral potassium 20 mEq tid, steadily improved, on discharge K was 4.0. She will be going back to [facility] with home health, home oxygen at 2L. Family will be picking up this afternoon. - Patient Instructions Diet: Usual Diet as Tolerated Activity: As Tolerated Driving: Do Not Drive Showering/Bathing: May Shower Notify Provider of: Fever, Increased Pain, Swelling and Redness, Nausea and/or Vomiting Other/Special Instructions: Follow up with Camila Chanel in 1 week to recheck sodium, and CXR to make sure you're pneumonia/COPD exacerbation has resolved. Sodium was elevated due to you receiving steriods for your COPD. - Discharge Plan *PRESCRIPTION DRUG MONITORING PROGRAM REVIEWED*: Not Applicable *COPY OF PRESCRIPTION DRUG MONITORING REPORT IN PATIENT LUIGI: Not Applicable Prescriptions/Med Rec: Furosemide [Lasix] 40 mg PO 0900 30 Days #30 tab Home Medications: Home Meds Aspirin [Ecotrin EC] 81 mg PO 21 05/09/15 [History] Levothyroxine [Synthroid] 88 mcg PO DAILY 11/18/17 [History] Carboxymethylcellulose Sodium [Refresh Tears] 15 ml EYEBOTH TID 11/28/18 [History] DULoxetine [Cymbalta] 90 mg PO DAILY 11/28/18 [History] Memantine [Namenda] 10 mg PO DAILY 11/28/18 [History] Melatonin 5 mg PO BEDTIME 07/11/20 [History] Mirtazapine 7.5 mg PO BEDTIME 07/11/20 [History] QUEtiapine [SEROquel] 25 mg PO DAILY@0900 07/11/20 [History] Ferrous Sulfate 325 mg PO DAILY 07/24/20 [History] QUEtiapine [SEROquel XR] 150 mg PO BEDTIME 07/25/20 [History] QUEtiapine [SEROquel] 37.5 mg PO DAILY@1600 07/25/20 [History] Acetaminophen 650 mg PO Q4HR PRN 08/04/20 [History] ClonazePAM [KlonoPIN] 0.5 mg PO DAILY 08/04/20 [History] Furosemide [Lasix] 40 mg PO 0900 30 Days #30 tab 08/08/20 [Rx] polyethylene glycoL 3350 [Miralax] 17 gm PO DAILY PRN 1 Days #1 bottle 08/08/20 [Rx] Oxygen Therapy Mode: Nasal Cannula Oxygen Flow Rate (L/min): 2 Maintain SPO2% less than: 92 Maintain SpO2% greater than: 88 Patient Handouts: Hypernatremia, [id number], Heart Failure, Self Care, [id number], Chronic Obstructive Pulmonary Disease, [id number]-[id number] Forms: ED Department Discharge Referrals: Camila Chanel NP [Primary Care Provider] - - Discharge Summary/Plan Comment DC Time >30 min.: No - General Info Date of Service: 08/08/20 Subjective Update: States her breathing is good today, no wheezing. Has had DuoNebs twice since admission, no improvement in breathing with these. Diarrhea has resolved. Eating well. Her oxygen is weaned back to her home dose of 2L by nasal cannula. On room air this morning she was 86% after 10 min. Pleasantly confused. - Patient Data Vitals - Most Recent: Last Vital Signs Temp 98.0 F 08/08/20 07:35 Pulse 75 08/08/20 09:30 Resp 22 H 08/08/20 07:35 BP 103/62 08/08/20 07:35 Pulse Ox 95 08/08/20 07:35 Weight - Most Recent: 156 lb 3.2 oz I&O - Last 24 hours: Intake & Output 08/08/20 08/08/20 08/08/20 06:59 14:59 22:59 Intake Total 200 Balance 200 Lab Results - Last 24 hrs: Laboratory Results - last 24 hr 08/08/20 08/08/20 Range/Units 06:25 06:25 WBC 5.9 (3.0-10.3) x10-3/uL RBC 3.81 (3.60-5.20) x10(6)uL Hgb 10.2 L (11.4-15.5) g/dL Hct 32.5 L (34.2-48.2) % MCV 85.2 (76.7-100.5) fL MCH 26.6 (23.9-33.9) pg MCHC 31.3 L (31.9-34.8) g/dL RDW 18.3 H (12.3-16.5) % Plt Count 273 (151-488) x10(3)uL MPV 9.2 (7.1-12.4) fL Neut % (Auto) 51.0 (30.8-76.2) % Lymph % (Auto) 33.4 (18.4-52.1) % Bailey % (Auto) 12.5 (4.4-15.7) % Eos % (Auto) 2.1 (0.6-8.1) % Baso % (Auto) 1.0 (0.2-1.5) % Neut # (Auto) 3.0 (1.5-6.3) x10-3/uL Lymph # (Auto) 2.0 (1.0-4.4) x10-3/uL Bailey # (Auto) 0.7 (0.3-1.0) x10-3/uL Eos # (Auto) 0.1 (0.0-0.8) x10-3/uL Baso # (Auto) 0.1 (0.0-0.1) x10-3/uL Sodium 150 H (135-145) mmol/L Potassium 4.0 (3.5-5.3) mmol/L Chloride 112 H (100-110) mmol/L Carbon Dioxide 35 H (21-32) mmol/L BUN 29 H (7-18) mg/dL Creatinine 1.0 (0.55-1.02) mg/dL Est Cr Clr Drug Dosing 35.70 mL/min Estimated GFR (MDRD) 53 L (>60) BUN/Creatinine Ratio 29.0 H (9-20) Glucose 84 (80-116) mg/dL Calcium 8.2 L (8.6-10.2) mg/dL FREDY Results - Last 24 hrs: Microbiology 08/04/20 14:43 Aerobic Blood Culture - Preliminary Blood - Venous - Lab Draw NO GROWTH AFTER 4 DAYS Anaerobic Blood Culture - Preliminary NO GROWTH AFTER 4 DAYS 08/04/20 14:25 Aerobic Blood Culture - Preliminary Blood - Venous NO GROWTH AFTER 4 DAYS Anaerobic Blood Culture - Preliminary NO GROWTH AFTER 4 DAYS Med Orders - Current: Current Medications Acetaminophen (Acetaminophen 325 Mg Tab) 650 mg PO Q4H PRN PRN Reason: Pain Last Admin: 08/08/20 08:13 Dose: 650 mg Documented by: Albuterol/Ipratropium (Albuterol/Ipratropium 3.0-0.5 Mg/3 Ml Neb Soln) 3 ml INH Q4H PRN PRN Reason: Shortness Of Breath/wheezing Last Admin: 08/08/20 09:15 Dose: 3 ml Documented by: Artificial Tears (Carboxymethylcellulose Sodium 0.5% Ophth Soln 15 Ml Bottle) 0 ml EYEBOTH TID [facility] Last Admin: 08/08/20 13:02 Dose: 1 drop Documented by: Aspirin (Aspirin 81 Mg Tab.Ec) 81 mg PO 21 [facility] Last Admin: 08/07/20 20:22 Dose: 81 mg Documented by: Clonazepam (Clonazepam 0.5 Mg Tab) 0.5 mg PO 09 [facility] Last Admin: 08/08/20 08:13 Dose: 0.5 mg Documented by: Duloxetine HCl (Duloxetine 30 Mg Cap) 90 mg PO DAILY [facility] Last Admin: 08/08/20 08:14 Dose: 90 mg Documented by: Enoxaparin Sodium (Enoxaparin 30 Mg/0.3 Ml Syringe) 30 mg SUBCUT Q24H [facility] Last Admin: 08/07/20 16:30 Dose: 30 mg Documented by: Ferrous Sulfate (Ferrous Sulfate 325 Mg Tab) 325 mg PO DAILY [facility] Last Admin: 08/08/20 08:15 Dose: 325 mg Documented by: Levothyroxine Sodium (Levothyroxine 88 Mcg Tab) 88 mcg PO DAILY [facility] Last Admin: 08/08/20 08:16 Dose: 88 mcg Documented by: Melatonin (Melatonin 3 Mg Tab) 6 mg PO BEDTIME [facility] Last Admin: 08/07/20 20:23 Dose: 6 mg Documented by: Memantine (Memantine 10 Mg Tab) 10 mg PO DAILY [facility] Last Admin: 08/08/20 08:14 Dose: 10 mg Documented by: Mirtazapine (Mirtazapine 15 Mg Tab) 7.5 mg PO BEDTIME [facility] Last Admin: 08/07/20 20:23 Dose: 7.5 mg Documented by: Quetiapine Fumarate (Quetiapine 25 Mg Tab) 25 mg PO DAILY@0900 [facility] Last Admin: 08/08/20 08:16 Dose: 25 mg Documented by: Quetiapine Fumarate (Quetiapine 25 Mg Tab) 37.5 mg PO DAILY@1600 [facility] Last Admin: 08/07/20 16:29 Dose: 37.5 mg Documented by: Quetiapine Fumarate (Quetiapine 50 Mg Tab) 150 mg PO BEDTIME [facility] Last Admin: 08/07/20 20:24 Dose: 150 mg Documented by: Sodium Chloride (Sodium Chloride 0.9% 10 Ml Syringe) 10 ml FLUSH DAILY PRN PRN Reason: Keep Vein Open Last Admin: 08/06/20 15:02 Dose: 10 ml Documented by: Discontinued Medications Albuterol/Ipratropium (Albuterol/Ipratropium 3.0-0.5 Mg/3 Ml Neb Soln) 3 ml NEB ONETIME ONE Stop: 08/04/20 15:21 Last Admin: 08/04/20 15:37 Dose: 3 ml Documented by: Diphenhydramine HCl (Diphenhydramine 50 Mg/Ml Sdv) 12.5 mg IVPUSH ONETIME ONE Stop: 08/04/20 17:01 Last Admin: 08/04/20 17:07 Dose: 12.5 mg Documented by: Diphenhydramine HCl (Diphenhydramine 50 Mg/Ml Sdv) 12.5 mg IVPUSH Q48H [facility] Last Admin: 08/06/20 15:03 Dose: 12.5 mg Documented by: Sodium Chloride (Normal Saline) 1,000 mls @ 125 mls/hr IV ASDIRECTED [facility] Last Admin: 08/05/20 04:46 Dose: 125 mls/hr Documented by: Piperacillin Sod/Tazobactam (Sod 3.375 gm/ Sodium Chloride) 50 mls @ 100 mls/hr IV Q6H [facility] Last Admin: 08/04/20 17:14 Dose: Not Given Documented by: Levofloxacin/Dextrose 750 mg/ (Premix) 150 mls @ 100 mls/hr IV ONETIME ONE Stop: 08/04/20 17:14 Last Admin: 08/04/20 15:57 Dose: 100 mls/hr Documented by: Levofloxacin/Dextrose (Levaquin In D5w 500 Mg/100 Ml) 100 mls @ 100 mls/hr IV Q48H [facility] Last Admin: 08/06/20 15:34 Dose: 100 mls/hr Documented by: Levofloxacin (Levofloxacin 750 Mg Tab) 750 mg PO ONETIME ONE Stop: 08/08/20 14:01 Last Admin: 08/08/20 13:02 Dose: 750 mg Documented by: Methylprednisolone Sodium Succinate (Methylprednisolone Sodium Succinate 125 Mg/2 Ml Sdv) 125 mg IVPUSH DAILY [facility] Last Admin: 08/04/20 15:37 Dose: 125 mg Documented by: Methylprednisolone Sodium Succinate (Methylprednisolone Sodium Succinate 125 Mg/2 Ml Sdv) 60 mg IVPUSH DAILY [facility] Last Admin: 08/06/20 08:42 Dose: 60 mg Documented by: Potassium Chloride (Potassium Chloride 20 Meq Tab.Er) 20 meq PO TID [facility] Last Admin: 08/06/20 08:38 Dose: 20 meq Documented by: Sodium Chloride (Sodium Chloride 0.9% 10 Ml Syringe) 10 ml FLUSH DAILY [facility] - Exam General: Reports: Alert, Oriented (person), Cooperative, No Acute Distress Lungs: Reports: Clear to Auscultation, Normal Respiratory Effort, Decreased Breath Sounds (bases). Denies: Crackles, Wheezing Cardiovascular: Reports: Regular Rate, Regular Rhythm GI/Abdominal Exam: Normal Bowel Sounds, Soft, Non-Tender, No Distention Extremities: Pedal Edema (trace BLE) *Q Meaningful Use (DIS) - VTE *Q VTE Mechanical Contraindications *Q: At Risk for Falls
== END 2020-08-08 15:00 | disposition home health service (06) | DRG 682 ==
LOC: FB.ED 13:42 → FB.MS 15:48
PROVIDERS: ADMIT Family Medicine; ATTEND Family Medicine
DX: N17.9 Acute kidney failure, unspecified (principal); J18.9 Pneumonia, unspecified organism; J44.1 Chronic obstructive pulmonary disease with (acute) exacerbation; E87.0 Hyperosmolality and hypernatremia; F02.81 Dementia in other diseases classified elsewhere, unspecified severity, with behavioral disturbance; J44.0 Chronic obstructive pulmonary disease with (acute) lower respiratory infection; E87.6 Hypokalemia; E86.0 Dehydration; R13.10 Dysphagia, unspecified; I50.9 Heart failure, unspecified; G30.1 Alzheimer's disease with late onset; R13.11 Dysphagia, oral phase; D64.9 Anemia, unspecified; Z85.41 Personal history of malignant neoplasm of cervix uteri; R19.7 Diarrhea, unspecified; H91.90 Unspecified hearing loss, unspecified ear; Z66 Do not resuscitate; I95.9 Hypotension, unspecified; H54.7 Unspecified visual loss; Z20.822 Contact with and (suspected) exposure to COVID-19; T38.0X5A Adverse effect of glucocorticoids and synthetic analogues, initial encounter; E78.00 Pure hypercholesterolemia, unspecified; F41.9 Anxiety disorder, unspecified; F32.9 Major depressive disorder, single episode, unspecified; E03.9 Hypothyroidism, unspecified; Z86.19 Personal history of other infectious and parasitic diseases; Z79.82 Long term (current) use of aspirin; Z79.890 Hormone replacement therapy; Z79.899 Other long term (current) drug therapy; Z95.0 Presence of cardiac pacemaker; Z87.01 Personal history of pneumonia (recurrent); Z98.49 Cataract extraction status, unspecified eye; Z90.89 Acquired absence of other organs; Z90.49 Acquired absence of other specified parts of digestive tract; Z90.710 Acquired absence of both cervix and uterus
CPT/HCPCS: 36415; 71045; 80048; 80053; 81001; 83605; 83880; 84443; 84484; 85025; 86140; 87040; 87230; 93005; 93010; 94640; 99285; 99285-25; A9270-GY; J1200; J1650; J1956; J2930; J7030; J7620-GY; U0002

== ENCOUNTER 2020-09-14 13:49 | Observation (INO) | payer MEDICARE ==
[2020-09-14] MEDS ORDERED: Albuterol/Ipratropium 3.0-0.5 MG/3 ML Neb Soln NEB STA (14:04)
[2020-09-14] MEDS ORDERED: Sodium Chloride 0.9% 1,000 ML IV SCH (15:00)
[2020-09-14] MEDS ORDERED: Iopamidol 755 Mg/ML 75 ML Bottle IV ONE (15:41)
--- NOTE | 2020-09-14 15:44 | CR ---
INDICATION: Dyspnea. COPD. CHEST ONE VIEW: AP portable upright view of the chest 09/14/20 was compared with 08/04/20 and 07/26/20. Pleuroparenchymal changes may be somewhat increased at the right lung base but are certainly emphasized by a poor inspiration on the current study. Pneumonia, pleuritis and atelectasis and/or fibrosis could also be present in that area - right lung base. No other finding to strongly suggest an acute process was seen. Overlying EKG leads are noted. The aorta is calcified in the arch area and minimally tortuous. The heart did not appear grossly enlarged. Overlying loop recorder is noted at the left ventricle. IMPRESSION: Possible increased pleuroparenchymal change at the right lung base raising question of pneumonia and pleuritis although atelectasis and fibrosis could also be present. Full inspiration PA and lateral views of the chest may be helpful for further evaluation, when clinically possible. Report was given by phone to Dr. Dao at approximately [address] [facility]
--- NOTE | 2020-09-14 16:38 | EDM.PDOC ---
ED HPI GENERAL MEDICAL PROBLEM - General Chief Complaint: Respiratory Problem Stated Complaint: SOB Time Seen by Provider: 09/14/20 13:55 Source of Information: Reports: Patient, EMS, Family History Limitations: Reports: Altered Mental Status - History of Present Illness INITIAL COMMENTS - FREE TEXT/NARRATIVE: Patient is a 80 YO WF from [facility] who presented to the ED via EMS because of dyspnea after swallowing a jello. When EMS arrived at [facility] her oxygen saturation was 78-80 and put her on NRB. Patient has a history of dysphagia and could have aspirated. She also has a history of dementia which makes history taking difficult. Most of the information is from EMS. 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 - Related Data Allergies Allergy/AdvReac Type Severity Reaction Status Date / Time No Known Allergies Allergy Verified 08/04/20 15:57 Home Meds: Home Meds Aspirin [Ecotrin EC] 81 mg PO 21 05/09/15 [History] Levothyroxine [Synthroid] 88 mcg PO DAILY 11/18/17 [History] Carboxymethylcellulose Sodium [Refresh Tears] 15 ml EYEBOTH TID 11/28/18 [History] DULoxetine [Cymbalta] 90 mg PO DAILY 11/28/18 [History] Memantine [Namenda] 10 mg PO DAILY 11/28/18 [History] Melatonin 5 mg PO BEDTIME 07/11/20 [History] Mirtazapine 7.5 mg PO BEDTIME 07/11/20 [History] QUEtiapine [SEROquel] 25 mg PO DAILY@0900 07/11/20 [History] Ferrous Sulfate 325 mg PO DAILY 07/24/20 [History] QUEtiapine [SEROquel XR] 150 mg PO BEDTIME 07/25/20 [History] QUEtiapine [SEROquel] 37.5 mg PO DAILY@1600 07/25/20 [History] Acetaminophen 650 mg PO Q4HR PRN 08/04/20 [History] ClonazePAM [KlonoPIN] 0.5 mg PO DAILY 08/04/20 [History] Furosemide [Lasix] 40 mg PO 0900 30 Days #30 tab 08/08/20 [Rx] polyethylene glycoL 3350 [Miralax] 17 gm PO DAILY PRN 1 Days #1 bottle 08/08/20 [Rx] Past Medical History HEENT History: Reports: Cataract, Hard of Hearing, Impaired Vision, Otitis Media Cardiovascular History: Reports: Arrhythmia, High Cholesterol, Pacemaker, SOB on Exertion, Syncope Respiratory History: Reports: Pneumonia, Recurrent, Other (See Below) Other Respiratory History: EMPHYSEMA, DYSPHAGIA Gastrointestinal History: Reports: Cholelithiasis Other Gastrointestinal History: DYSPHAGIA WITH CHOKING Genitourinary History: Reports: None [employer] 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 - Infectious Disease History Infectious Disease History: Reports: Chicken Pox, Measles, Mumps - Past Surgical History Head Surgeries/Procedures: Reports: None HEENT Surgical History: Reports: Adenoidectomy, Cataract Surgery, Tonsillectomy Cardiovascular Surgical History: Reports: Pacer Respiratory Surgical History: Reports: None GI Surgical History: Reports: Appendectomy, Cholecystectomy, Colonoscopy, Polypectomy Female Surgical History: Reports: Breast Biopsy, D&C, Hysterectomy Endocrine Surgical History: Reports: None Neurological Surgical History: Reports: None Musculoskeletal Surgical History: Reports: None Oncologic Surgical History: Reports: None Dermatological Surgical History: Reports: None Social & Family History - Family History Family Medical History: No Pertinent Family History - Caffeine Use Caffeine Use: Reports: None - Living Situation & Occupation Living situation: Reports: Alone Occupation: Retired ED ROS GENERAL - Review of Systems Review Of Systems: See Below Constitutional: Reports: No Symptoms HEENT: Reports: No Symptoms Respiratory: Reports: Shortness of Breath, Wheezing, Cough Cardiovascular: Reports: No Symptoms Endocrine: Reports: No Symptoms GI/Abdominal: Reports: No Symptoms : Reports: No Symptoms Musculoskeletal: Reports: No Symptoms Skin: Reports: No Symptoms Neurological: Reports: No Symptoms Psychiatric: Reports: No Symptoms ED EXAM, GENERAL - Physical Exam Exam: See Below Exam Limited By: No Limitations General Appearance: Alert, No Apparent Distress Eye Exam: Bilateral Eye: PERRL Ears: Normal External Exam, Normal Canal Nose: Normal Inspection, Normal Mucosa, No Blood Throat/Mouth: Normal Inspection, Normal Lips, Normal Teeth Head: Atraumatic, Normocephalic Neck: Normal Inspection, Supple, Non-Tender, Full Range of Motion Respiratory/Chest: Decreased Breath Sounds, Crackles, Rhonchi Cardiovascular: Normal Peripheral Pulses, Regular Rate, Rhythm, No Edema, No JVD, No Murmur, No Rub GI/Abdominal: Normal Bowel Sounds, Soft, Non-Tender, No Organomegaly, No Distention, No Abnormal Bruit, No Mass Back Exam: Normal Inspection, Full Range of Motion Extremities: Normal Inspection, Normal Range of Motion Neurological: Memory Loss Remote Events #1 Interpretation EKG Date: 09/14/20 Time: 14:06 Rhythm: Other (Sinus Tach) Rate (Beats/Min): 101 Blain: Normal P-Wave: Present QRS: Normal ST-T: Normal QT: Normal MT/PQ Interval: 137 Comparison: No Change EKG Interpretation Comments: Sinus Tach Course - Vital Signs Text/Narrative:: Labs/EKG/CXR/Chest CT result was reviewed and discussed with patient and her sister NS 500 ml/hr-1 Liter Duoneb x1 Last Recorded V/S: Last Vital Signs Temp 36.4 C 09/14/20 13:49 Pulse 83 09/14/20 17:38 Resp 18 09/14/20 17:38 BP 117/78 09/14/20 17:38 Pulse Ox 97 09/14/20 17:38 - Orders/Labs/Meds Orders: Active Orders 24 hr Category Date Time Status EKG Documentation Completion [RC] ASDIRECTED Care 09/14/20 13:54 Active RT Aerosol Therapy [RC] ASDIRECTED Care 09/14/20 14:04 Active CULTURE BLOOD [BC] Urgent Lab 09/14/20 14:20 Received CULTURE BLOOD [BC] Urgent Lab 09/14/20 14:30 Received CULTURE URINE [] Stat Lab 09/14/20 14:50 Received Acetaminophen [TylenoL] Med 09/14/20 17:42 Pending 650 mg PO Q4HR PRN Aspirin [Halfprin] Med 09/14/20 21:00 Ordered 81 mg PO 21 Carboxymethylcellulose Sodium [Refresh Tears 0.5%] Med 09/14/20 21:00 Ordered 15 ml EYEBOTH TID ClonazePAM [KlonoPIN] Med 09/15/20 09:00 Ordered 0.5 mg PO DAILY DULoxetine [Cymbalta] Med 09/15/20 09:00 Ordered 90 mg PO DAILY Ferrous Sulfate Med 09/15/20 09:00 Ordered 325 mg PO DAILY Levothyroxine [Synthroid] Med 09/15/20 09:00 Ordered 88 mcg PO DAILY Melatonin [Melatonin] Med 09/14/20 21:00 Ordered 5 mg PO BEDTIME Memantine [Namenda] Med 09/15/20 09:00 Ordered 10 mg PO DAILY Mirtazapine [Mirtazapine] Med 09/14/20 21:00 Ordered 7.5 mg PO BEDTIME QUEtiapine [SEROqueL] Med 09/15/20 09:00 Ordered 25 mg PO DAILY@0900 QUEtiapine [SEROqueL] Med 09/15/20 16:00 Ordered 37.5 mg PO DAILY@1600 QUEtiapine [SEROquel XR] Med 09/14/20 21:00 Ordered 150 mg PO BEDTIME Sodium Chloride 0.9% [Normal Saline] 1,000 ml Med 09/14/20 17:45 Ordered IV ASDIRECTED polyethylene glycoL 3350 [MiraLAX] Med 09/14/20 17:42 Ordered 17 gm PO DAILY PRN Blood Culture x2 Reflex Set [OM.PC] Urgent Oth 09/14/20 14:12 Ordered EKG 12 Lead [EK] Routine Ther 09/14/20 13:53 Ordered Medication Orders Acetaminophen (Acetaminophen 325 Mg Tab) 650 mg PO Q4HR PRN PRN Reason: Pain Artificial Tears (Carboxymethylcellulose Sodium 0.5% Ophth Soln 15 Ml Bottle) 15 ml EYEBOTH TID ELIU Aspirin (Aspirin 81 Mg Tab.Ec) 81 mg PO 21 ELIU Clonazepam (Clonazepam 0.5 Mg Tab) 0.5 mg PO DAILY ELIU Duloxetine HCl (Duloxetine 30 Mg Cap) 90 mg PO DAILY ELIU Ferrous Sulfate (Ferrous Sulfate 325 Mg Tab) 325 mg PO DAILY ELIU Sodium Chloride (Normal Saline) 1,000 mls @ 75 mls/hr IV ASDIRECTED ELIU Levothyroxine Sodium (Levothyroxine 88 Mcg Tab) 88 mcg PO DAILY ELIU Non-Formulary Medication (Melatonin [Melatonin]) 5 mg PO BEDTIME ELIU Non-Formulary Medication (Memantine [Namenda]) 10 mg PO DAILY ELIU Non-Formulary Medication (Mirtazapine [Mirtazapine]) 7.5 mg PO BEDTIME ELIU Non-Formulary Medication (Quetiapine [Seroquel Xr]) [address] [facility] Polyethylene Glycol (Polyethylene Glycol 3350 Powder 17 Gm Packet) 17 gm PO DAILY PRN PRN Reason: Constipation Quetiapine Fumarate (Quetiapine 25 Mg Tab) 25 mg PO DAILY@0900 [facility] Quetiapine Fumarate (Quetiapine 25 Mg Tab) 37.5 mg PO DAILY@1600 [facility] Labs: Laboratory Tests 09/14/20 09/14/20 09/14/20 Range/Units 14:20 14:20 14:20 WBC 10.2 (3.0-10.3) x10-3/uL RBC 4.34 (3.60-5.20) x10(6)uL Hgb 12.0 (11.4-15.5) g/dL Hct 38.4 (34.2-48.2) % MCV 88.5 (76.7-100.5) fL MCH 27.6 (23.9-33.9) pg MCHC 31.2 L (31.9-34.8) g/dL RDW 18.8 H (12.3-16.5) % Plt Count 269 (151-488) x10(3)uL MPV 9.9 (7.1-12.4) fL Neut % (Auto) 57.3 (30.8-76.2) % Lymph % (Auto) 27.8 (18.4-52.1) % Weber % (Auto) 9.6 (4.4-15.7) % Eos % (Auto) 3.8 (0.6-8.1) % Baso % (Auto) 1.5 (0.2-1.5) % Neut # (Auto) 5.8 (1.5-6.3) x10-3/uL Lymph # (Auto) 2.8 (1.0-4.4) x10-3/uL Weber # (Auto) 1.0 (0.3-1.0) x10-3/uL Eos # (Auto) 0.4 (0.0-0.8) x10-3/uL Baso # (Auto) 0.1 (0.0-0.1) x10-3/uL D-Dimer, Quantitative (0.0-0.59) mg/LFEU Sodium 151 H (135-145) mmol/L Potassium 3.3 L (3.5-5.3) mmol/L Chloride 105 D (100-110) mmol/L Carbon Dioxide 43 H* (21-32) mmol/L BUN 23 H (7-18) mg/dL Creatinine 1.1 H (0.55-1.02) mg/dL Est Cr Clr Drug Dosing TNP Estimated GFR (MDRD) 48 L (>60) BUN/Creatinine Ratio 20.9 H (9-20) Glucose 166 H D (80-116) mg/dL Lactic Acid (0.4-2.0) mmol/L Calcium 8.9 (8.6-10.2) mg/dL Total Bilirubin 0.7 (0.1-1.3) mg/dL AST 21 D (5-25) IU/L ALT 22 D (12-36) U/L Alkaline Phosphatase 120 H (56-112) IU/L Troponin I 71.0 H* (4.0-60.3) pg/mL NT-Pro-B Natriuret Pep 452 H (<=450) pg/mL Total Protein 6.9 (6.0-8.0) g/dL Albumin 3.1 L (3.2-4.6) g/dL Globulin 3.8 g/dL Albumin/Globulin Ratio 0.8 Urine Color (YELLOW) Urine Appearance (CLEAR) Urine pH (5.0-6.5) Ur Specific [place] (1.010-1.025) Urine Protein (NEGATIVE) mg/dL Urine Glucose (UA) (NORMAL) mg/dL Urine Ketones (NEGATIVE) mg/dL Urine Occult Blood (NEGATIVE) Urine Nitrite (NEGATIVE) Urine Bilirubin (NEGATIVE) Urine Urobilinogen (NEGATIVE) mg/dL Ur Leukocyte Esterase (NEGATIVE) Urine RBC (0-5) Urine WBC (0-5) Ur Squamous Epith Cells (NS,R,O) Amorphous Sediment Urine Bacteria (NS) Urine Mucus (NS) 09/14/20 09/14/20 09/14/20 Range/Units 14:20 14:20 14:50 WBC (3.0-10.3) x10-3/uL RBC (3.60-5.20) x10(6)uL Hgb (11.4-15.5) g/dL Hct (34.2-48.2) % MCV (76.7-100.5) fL MCH (23.9-33.9) pg MCHC (31.9-34.8) g/dL RDW (12.3-16.5) % Plt Count (151-488) x10(3)uL MPV (7.1-12.4) fL Neut % (Auto) (30.8-76.2) % Lymph % (Auto) (18.4-52.1) % Weber % (Auto) (4.4-15.7) % Eos % (Auto) (0.6-8.1) % Baso % (Auto) (0.2-1.5) % Neut # (Auto) (1.5-6.3) x10-3/uL Lymph # (Auto) (1.0-4.4) x10-3/uL Weber # (Auto) (0.3-1.0) x10-3/uL Eos # (Auto) (0.0-0.8) x10-3/uL Baso # (Auto) (0.0-0.1) x10-3/uL D-Dimer, Quantitative 1.97 H (0.0-0.59) mg/LFEU Sodium (135-145) mmol/L Potassium (3.5-5.3) mmol/L Chloride (100-110) mmol/L Carbon Dioxide (21-32) mmol/L BUN (7-18) mg/dL Creatinine (0.55-1.02) mg/dL Est Cr Clr Drug Dosing Estimated GFR (MDRD) (>60) BUN/Creatinine Ratio (9-20) Glucose (80-116) mg/dL Lactic Acid 1.5 (0.4-2.0) mmol/L Calcium (8.6-10.2) mg/dL Total Bilirubin (0.1-1.3) mg/dL AST (5-25) IU/L ALT (12-36) U/L Alkaline Phosphatase (56-112) IU/L Troponin I (4.0-60.3) pg/mL NT-Pro-B Natriuret Pep (<=450) pg/mL Total Protein (6.0-8.0) g/dL Albumin (3.2-4.6) g/dL Globulin g/dL Albumin/Globulin Ratio Urine Color Yellow (YELLOW) Urine Appearance Slightly cloudy (CLEAR) Urine pH 5.0 (5.0-6.5) Ur Specific [place] 1.025 (1.010-1.025) Urine Protein Negative (NEGATIVE) mg/dL Urine Glucose (UA) Normal (NORMAL) mg/dL Urine Ketones 15 H (NEGATIVE) mg/dL Urine Occult Blood Negative (NEGATIVE) Urine Nitrite Negative (NEGATIVE) Urine Bilirubin Negative (NEGATIVE) Urine Urobilinogen Normal (NEGATIVE) mg/dL Ur Leukocyte Esterase Moderate H (NEGATIVE) Urine RBC 0-5 (0-5) Urine WBC 10-20 H (0-5) Ur Squamous Epith Cells Occasional (NS,R,O) Amorphous Sediment Few Urine Bacteria Few H (NS) Urine Mucus Moderate H (NS) Meds: Medications Generic Name Dose Route Start Last Admin Trade Name Freq PRN Reason Stop Dose Admin Acetaminophen 650 mg 09/14/20 17:42 Acetaminophen 325 Mg Tab PO Q4HR PRN Pain Artificial Tears 15 ml 09/14/20 21:00 Carboxymethylcellulose Sodium 0.5% Ophth Soln 15 Ml Bottle EYEBOTH TID ELIU Aspirin 81 mg 09/14/20 21:00 Aspirin 81 Mg Tab.Ec PO 21 ELIU Clonazepam 0.5 mg 09/15/20 09:00 Clonazepam 0.[address] [facility] Duloxetine HCl 90 mg 09/15/20 09:00 Duloxetine 30 [address] [facility] Ferrous Sulfate 325 mg 09/15/20 09:00 Ferrous Sulfate [address] [facility] Sodium Chloride 1,000 mls @ 75 mls/hr 09/14/20 17:45 Normal Saline IV ASDIRECTED [facility] Levothyroxine Sodium 88 mcg 09/15/20 09:00 Levothyroxine 88 Mcg Tab PO DAILY ELIU Non-Formulary Medication 5 mg 09/14/20 21:00 Melatonin [Melatonin] PO BEDTIME ELIU Non-Formulary Medication 10 mg 09/15/20 09:00 Memantine [Namenda] PO DAILY ELIU Non-Formulary Medication 7.5 mg 09/14/20 21:00 Mirtazapine [Mirtazapine] PO BEDTIME ELIU Non-Formulary Medication 150 mg 09/14/20 21:00 Quetiapine [Seroquel Xr] PO BEDTIME ELIU Polyethylene Glycol 17 gm 09/14/20 17:42 Polyethylene Glycol 3350 Powder 17 Gm Packet PO DAILY PRN Constipation Quetiapine Fumarate 25 mg 09/15/20 09:00 Quetiapine 25 Mg Tab PO DAILY@0900 ELIU Quetiapine Fumarate 37.5 mg 09/15/20 16:00 Quetiapine 25 Mg Tab PO DAILY@1600 ELIU Discontinued Medications Generic Name Dose Route Start Last Admin Trade Name Freq PRN Reason Stop Dose Admin Albuterol/Ipratropium 3 ml 09/14/20 14:04 09/14/20 14:15 Albuterol/Ipratropium 3.0-0.5 Mg/3 Ml Neb Soln NEB 09/14/20 14:05 3 ml NOW STA Administration Sodium Chloride 1,000 mls @ 500 mls/hr 09/14/20 15:00 09/14/20 14:55 Normal Saline IV 500 mls/hr ASDIRECTED ELIU Administration Iopamidol 75 ml 09/14/20 15:41 09/14/20 16:13 Iopamidol 755 Mg/Ml 75 Ml Bottle IV 09/14/20 15:42 75 ml ASDIRECTED ONE Administration Departure - Departure Time of Disposition: 15:35 Disposition: Home, Self-Care 01 Condition: Good Clinical Impression: Aspiration pneumonia, COPD (chronic obstructive pulmonary disease), Asthma UTI (urinary tract infection) Qualifiers: Urinary tract infection type: acute cystitis Hematuria presence: without hematuria Qualified Code(s): N30.00 - Acute cystitis without hematuria - Discharge Information Sepsis Event Note (ED) - Evaluation Sepsis Screening Result: Possible Sepsis Risk - Focused Exam Vital Signs: Vital Signs Temp Pulse Resp BP Pulse Ox 09/14/20 17:38 83 18 117/78 97 09/14/20 13:49 36.4 C 104 H 24 H 105/79 100 - My Orders Last 24 Hours: My Active Orders 09/14/20 13:53 EKG 12 Lead [EK] Routine 09/14/20 13:54 EKG Documentation Completion [RC] ASDIRECTED 09/14/20 14:04 RT Aerosol Therapy [RC] ASDIRECTED 09/14/20 14:12 Blood Culture x2 Reflex Set [OM.PC] Urgent 09/14/20 14:20 CULTURE BLOOD [BC] Urgent 09/14/20 14:30 CULTURE BLOOD [BC] Urgent 09/14/20 14:50 CULTURE URINE [RM] Stat 09/14/20 17:42 Acetaminophen [TylenoL] 650 mg PO Q4HR PRN polyethylene glycoL 3350 [MiraLAX] 17 gm PO DAILY PRN 09/14/20 17:45 Sodium Chloride 0.9% [Normal Saline] 1,000 ml IV ASDIRECTED 09/14/20 21:00 Aspirin [Halfprin] 81 mg PO 21 Carboxymethylcellulose Sodium [Refresh Tears 0.5%] 15 ml EYEBOTH TID Melatonin [Melatonin] 5 mg PO BEDTIME Mirtazapine [Mirtazapine] 7.5 mg PO BEDTIME QUEtiapine [SEROquel XR] 150 mg PO BEDTIME 09/15/20 09:00 ClonazePAM [KlonoPIN] 0.5 mg PO DAILY DULoxetine [Cymbalta] 90 mg PO DAILY Ferrous Sulfate 325 mg PO DAILY Levothyroxine [Synthroid] 88 mcg PO DAILY Memantine [Namenda] 10 mg PO DAILY QUEtiapine [SEROqueL] 25 mg PO DAILY@0900 09/15/20 16:00 QUEtiapine [SEROqueL] 37.5 mg PO DAILY@1600 - Assessment/Plan Last 24 Hours: My Active Orders 09/14/20 13:53 EKG 12 Lead [EK] Routine 09/14/20 13:54 EKG Documentation Completion [RC] ASDIRECTED 09/14/20 14:04 RT Aerosol Therapy [RC] ASDIRECTED 09/14/20 14:12 Blood Culture x2 Reflex Set [OM.PC] Urgent 09/14/20 14:20 CULTURE BLOOD [BC] Urgent 09/14/20 14:30 CULTURE BLOOD [BC] Urgent 09/14/20 14:50 CULTURE URINE [RM] Stat 09/14/20 17:42 Acetaminophen [TylenoL] 650 mg PO Q4HR PRN polyethylene glycoL 3350 [MiraLAX] 17 gm PO DAILY PRN 09/14/20 17:45 Sodium Chloride 0.9% [Normal Saline] 1,000 ml IV ASDIRECTED 09/14/20 21:00 Aspirin [Halfprin] 81 mg PO 21 Carboxymethylcellulose Sodium [Refresh Tears 0.5%] 15 ml EYEBOTH TID Melatonin [Melatonin] 5 mg PO BEDTIME Mirtazapine [Mirtazapine] 7.5 mg PO BEDTIME QUEtiapine [SEROquel XR] 150 mg PO BEDTIME 09/15/20 09:00 ClonazePAM [KlonoPIN] 0.5 mg PO DAILY DULoxetine [Cymbalta] 90 mg PO DAILY Ferrous Sulfate 325 mg PO DAILY Levothyroxine [Synthroid] 88 mcg PO DAILY Memantine [Namenda] 10 mg PO DAILY QUEtiapine [SEROqueL] 25 mg PO DAILY@0900 09/15/20 16:00 QUEtiapine [SEROqueL] 37.5 mg PO DAILY@1600
[2020-09-14] MEDS ORDERED: Polyethylene Glycol 3350 Powder 17 GM Packet PO PRN (17:42)
[2020-09-14] MEDS ORDERED: Acetaminophen 325 MG Tab PO PRN (17:42)
--- NOTE | 2020-09-14 17:47 | CT ---
INDICATION: Elevated D-dimer, question PE. COMPUTERIZED TOMOGRAPHY ANGIOGRAPHY OF THE CHEST WITH CONTRAST [id number]: Spiral 1.25 mm axial sections were obtained through the chest with 75 mL Isovue-370 at 4 mL per second, with axial, sagittal and coronal reconstructions 09/14/20-no comparison CTs. TOTAL EXAM DLP: 333.46 mGy/cm. Calcifications are noted in brachiocephalic vessels, the arch and descending thoracic aorta are suggested in coronary arteries. Heart did not appear enlarged. No pericardial effusion was seen. No mediastinal mass was noted. Minimal mediastinal lymphadenopathy is noted and is nonspecific. Consolidated lung is noted in the middle and lower lobes on the right involving a significant portion of those lobes. Very minimal heavy markings and possible minimal infiltrate is noted at the left lower lobe additionally. Minimal emphysematous changes are suggested. What appears to be an area of pleural thickening and scarring is noted in the left upper lobe on images 12 through 24. The possibility that this represents a neoplastic process is difficult to exclude without comparison studies. Followup is recommended, therefore. No additional nodular or suspicious abnormalities were identified. No evidence of pulmonary embolus could be identified. IMPRESSION: 1. Bibasilar pleuroparenchymal changes, which may be on the basis of consolidating pneumonia, much more prominent on the right than left. Localized pleuritis likely. Some atelectatic change could be present. 2. ASD/ASHD. 3. Pleural thickening, most prominent in the left upper anterolateral pleural space, most likely on the basis of fibrosis. 4. Hypertrophic degenerative changes, thoracic spine. 5. No definite evidence of pulmonary emboli. 6. Loop recorder noted in place. Report was called to Dr. Ayaan Dao's voicemail ([phone]) at 1711 hours, 09/14/20. [facility]
[2020-09-14] MEDS ORDERED: Albuterol 0.083% 2.5 MG/3 ML Neb Soln NEB PRN (18:45)
[2020-09-14] MEDS: Sodium Chloride 0.9% 1,000 ML IV SCH (19:00)
[2020-09-14] MEDS: Piperacillin/Tazobactam 3.375 GM in Sodium Chloride 0.9% 50 ML IV SCH (19:53)
[2020-09-14] MEDS ORDERED: Enoxaparin 40 MG/0.4 ML Syringe SUBCUT SCH (20:00)
[2020-09-14] MEDS: Albuterol/Ipratropium 3.0-0.5 MG/3 ML Neb Soln NEB SCH (20:01)
[2020-09-14] MEDS: Aspirin 81 MG Tab.EC *PTOM PO SCH (20:52)
[2020-09-14] MEDS: Carboxymethylcellulose Sodium 0.5% Ophth Soln 15 ML Bottle EYEBOTH SCH (20:53)
[2020-09-14] MEDS ORDERED: QUEtiapine 50 MG Tab.SR PO SCH (21:00)
[2020-09-14] MEDS ORDERED: Non-Formulary Medication 1 Each (Melatonin [Melatonin] 5 MG Tablet) PO SCH (21:00)
[2020-09-14] MEDS ORDERED: Mirtazapine 15 MG Tab PO SCH (21:00)
[2020-09-14] MEDS ORDERED: Melatonin 3 MG Tab PO ONE (21:36)
[2020-09-15] MEDS: Piperacillin/Tazobactam 3.375 GM in Sodium Chloride 0.9% 50 ML IV SCH ×4 (00:24→18:11)
[2020-09-15] MEDS: Sodium Chloride 0.9% 1,000 ML IV SCH (07:00)
[2020-09-15] MEDS: Levothyroxine 88 MCG Tab PO SCH ×2 (08:41→11:51)
[2020-09-15] MEDS: Albuterol/Ipratropium 3.0-0.5 MG/3 ML Neb Soln NEB SCH ×5 (08:41→20:42)
[2020-09-15] MEDS: Memantine 10 MG Tab *PTOM PO SCH ×2 (08:42→11:35)
[2020-09-15] MEDS: Ferrous Sulfate 325 MG Tab *PTOM PO SCH ×2 (08:42→11:35)
[2020-09-15] MEDS: QUEtiapine 25 MG Tab *PTOM PO SCH ×2 (08:43→11:36)
[2020-09-15] MEDS: Carboxymethylcellulose Sodium 0.5% Ophth Soln 15 ML Bottle EYEBOTH SCH ×5 (08:43→23:16)
[2020-09-15] MEDS: ClonazePAM 0.5 MG Tab PO SCH (08:48)
--- NOTE | 2020-09-15 08:51 | PCM.HP.2 ---
H&P History of Present Illness - General Date of Service: 09/15/20 Admit Problem/Dx: Admission Diagnosis/Problem Admission Diagnosis/Problem Pneumonia Source of Information: Patient History Limitations: Reports: Altered Mental Status - History of Present Illness Initial Comments - Free Text/Narative: Belinda was brought from [facility], after aspirating Jell-O. She was found to be hypoxic. History taking is difficult because of dementia. CT of the chest confirmed pneumonitis. Overnight she submitted 2 L of oxygenation.No fever. She has a history of recurrent pneumonia. Was admitted on 08/04/2020 for the same reason. She also has a history of COPD, CHF and Hypothyroidism. Ostensibly dysphagia has been a chronic problem but she is unable to tolerate thickened or pured food.. - Related Data Allergies/Adverse Reactions: Allergies Allergy/AdvReac Type Severity Reaction Status Date / Time No Known Allergies Allergy Verified 09/14/20 19:44 Home Medications: Home Meds Aspirin [Ecotrin EC] 81 mg PO BEDTIME 05/09/15 [History] Levothyroxine [Synthroid] 88 mcg PO DAILY 11/18/17 [History] Carboxymethylcellulose Sodium [Refresh Tears] 1 drop EYEBOTH TID 11/28/18 [History] DULoxetine [Cymbalta] 90 mg PO DAILY 11/28/18 [History] Memantine [Namenda] 10 mg PO DAILY 11/28/18 [History] Melatonin 5 mg PO BEDTIME 07/11/20 [History] Mirtazapine 7.5 mg PO BEDTIME 07/11/20 [History] QUEtiapine [SEROquel] 25 mg PO DAILY@0900 07/11/20 [History] Ferrous Sulfate 325 mg PO DAILY 07/24/20 [History] QUEtiapine [SEROquel XR] 150 mg PO BEDTIME 07/25/20 [History] QUEtiapine [SEROquel] 37.5 mg PO DAILY@1600 07/25/20 [History] Acetaminophen 650 mg PO Q4HR PRN 08/04/20 [History] ClonazePAM [KlonoPIN] 0.5 mg PO DAILY 08/04/20 [History] polyethylene glycoL 3350 [Miralax] 17 gm PO DAILY PRN 1 Days #1 bottle 08/08/20 [Rx] Furosemide [Lasix] 20 mg PO DAILY 09/14/20 [History] Potassium Chloride [Klor-Con M20] 20 meq PO 1700 09/14/20 [History] Past Medical History HEENT History: Reports: Cataract, Hard of Hearing, Impaired Vision, Otitis Media, Other (See Below) Other HEENT History: hx DYSPHAGIA Cardiovascular History: Reports: Arrhythmia, Heart Failure, High Cholesterol, Pacemaker, SOB on Exertion, Syncope Respiratory History: Reports: COPD, Pneumonia, Recurrent, Other (See Below) Other Respiratory History: EMPHYSEMA, DYSPHAGIA Gastrointestinal History: Reports: Cholelithiasis Other Gastrointestinal History: DYSPHAGIA WITH CHOKING Genitourinary History: Reports: Renal Disease [employer] History: Reports: Musculoskeletal History: Reports: Fracture Other Musculoskeletal History: hx R elbow fx Neurological History: Reports: Other (See Below) Other Neuro History: ABNORMAL FINDING ON MRI Psychiatric History: Reports: Anxiety, Dementia, Depression Endocrine/Metabolic History: Reports: Hypothyroidism Hematologic History: Reports: Anemia, Blood Transfusion(s) Immunologic History: Reports: None Oncologic (Cancer) History: Reports: Cervix Dermatologic History: Reports: Cellulitis Other Dermatologic History: CELLULITIS ON LEFT SIDE OF FACE AND LEFT EAR. - Infectious Disease History Infectious Disease History: Reports: Chicken Pox, Measles, Mumps - Past Surgical History Head Surgeries/Procedures: Reports: None HEENT Surgical History: Reports: Adenoidectomy, Cataract Surgery, Tonsillectomy Cardiovascular Surgical History: Reports: Pacer Respiratory Surgical History: Reports: None GI Surgical History: Reports: Appendectomy, Cholecystectomy, Colonoscopy, Polypectomy Female Surgical History: Reports: Breast Biopsy, D&C, Hysterectomy Endocrine Surgical History: Reports: None Neurological Surgical History: Reports: None Musculoskeletal Surgical History: Reports: None Oncologic Surgical History: Reports: None Dermatological Surgical History: Reports: None Social & Family History - Family History Family Medical History: No Pertinent Family History - Tobacco Use Tobacco Use Status *Q: Never Tobacco User - Caffeine Use Caffeine Use: Reports: Coffee - Recreational Drug Use Recreational Drug Use: No - Living Situation & Occupation Living situation: Reports: Alone Occupation: Retired H&P Review of Systems - Review of Systems: Review Of Systems: Comprehensive ROS is negative, except as noted in HPI. Exam - Exam Exam: See Below - Vital Signs Vital Signs: Last Vital Signs Temp 97.1 F 09/15/20 06:00 Pulse 80 09/15/20 06:00 Resp 18 09/15/20 06:00 BP 90/60 09/15/20 06:00 Pulse Ox 97 09/15/20 06:00 Weight: 68.663 kg - Exam Quality Assessment: Supplemental Oxygen General: Alert HEENT: PERRLA Neck: Supple Lungs: Crackles Cardiovascular: Regular Rate Extremities: Normal Inspection. No: Pedal Edema Skin: Warm Neuro Extensive - Mental Status: Alert Psychiatric: Alert, Normal Affect - Patient Data Lab Results Last 24 hrs: Laboratory Results - last 24 hr 09/14/20 09/14/20 09/14/20 Range/Units 14:20 14:20 14:20 WBC 10.2 (3.0-10.3) x10-3/uL RBC 4.34 (3.60-5.20) x10(6)uL Hgb 12.0 (11.4-15.5) g/dL Hct 38.4 (34.2-48.2) % MCV 88.5 (76.7-100.5) fL MCH 27.6 (23.9-33.9) pg MCHC 31.2 L (31.9-34.8) g/dL RDW 18.8 H (12.3-16.5) % Plt Count 269 (151-488) x10(3)uL MPV 9.9 (7.1-12.4) fL Neut % (Auto) 57.3 (30.8-76.2) % Lymph % (Auto) 27.8 (18.4-52.1) % [place] % (Auto) 9.6 (4.4-15.7) % Eos % (Auto) 3.8 (0.6-8.1) % Baso % (Auto) 1.5 (0.2-1.5) % Neut # (Auto) 5.8 (1.5-6.3) x10-3/uL Lymph # (Auto) 2.8 (1.0-4.4) x10-3/uL [place] # (Auto) 1.0 (0.3-1.0) x10-3/uL Eos # (Auto) 0.4 (0.0-0.8) x10-3/uL Baso # (Auto) 0.1 (0.0-0.1) x10-3/uL D-Dimer, Quantitative (0.0-0.59) mg/LFEU Sodium 151 H (135-145) mmol/L Potassium 3.3 L (3.5-5.3) mmol/L Chloride 105 D (100-110) mmol/L Carbon Dioxide 43 H* (21-32) mmol/L BUN 23 H (7-18) mg/dL Creatinine 1.1 H (0.55-1.02) mg/dL Est Cr Clr Drug Dosing TNP Estimated GFR (MDRD) 48 L (>60) BUN/Creatinine Ratio 20.9 H (9-20) Glucose 166 H D (80-116) mg/dL Lactic Acid (0.4-2.0) mmol/L Calcium 8.9 (8.6-10.2) mg/dL Total Bilirubin 0.7 (0.1-1.3) mg/dL AST 21 D (5-25) IU/L ALT 22 D (12-36) U/L Alkaline Phosphatase 120 H (56-112) IU/L Troponin I 71.0 H* (4.0-60.3) pg/mL NT-Pro-B Natriuret Pep 452 H (<=450) pg/mL Total Protein 6.9 (6.0-8.0) g/dL Albumin 3.1 L (3.2-4.6) g/dL Globulin 3.8 g/dL Albumin/Globulin Ratio 0.8 Urine Color (YELLOW) Urine Appearance (CLEAR) Urine pH (5.0-6.5) Ur Specific Melrose (1.010-1.025) Urine Protein (NEGATIVE) mg/dL Urine Glucose (UA) (NORMAL) mg/dL Urine Ketones (NEGATIVE) mg/dL Urine Occult Blood (NEGATIVE) Urine Nitrite (NEGATIVE) Urine Bilirubin (NEGATIVE) Urine Urobilinogen (NEGATIVE) mg/dL Ur Leukocyte Esterase (NEGATIVE) Urine RBC (0-5) Urine WBC (0-5) Ur Squamous Epith Cells (NS,R,O) Amorphous Sediment Urine Bacteria (NS) Urine Mucus (NS) 09/14/20 09/14/20 09/14/20 Range/Units 14:20 14:20 14:50 WBC (3.0-10.3) x10-3/uL RBC (3.60-5.20) x10(6)uL Hgb (11.4-15.5) g/dL Hct (34.2-48.2) % MCV (76.7-100.5) fL MCH (23.9-33.9) pg MCHC (31.9-34.8) g/dL RDW (12.3-16.5) % Plt Count (151-488) x10(3)uL MPV (7.1-12.4) fL Neut % (Auto) (30.8-76.2) % Lymph % (Auto) (18.4-52.1) % [place] % (Auto) (4.4-15.7) % Eos % (Auto) (0.6-8.1) % Baso % (Auto) (0.2-1.5) % Neut # (Auto) (1.5-6.3) x10-3/uL Lymph # (Auto) (1.0-4.4) x10-3/uL [place] # (Auto) (0.3-1.0) x10-3/uL Eos # (Auto) (0.0-0.8) x10-3/uL Baso # (Auto) (0.0-0.1) x10-3/uL D-Dimer, Quantitative 1.97 H (0.0-0.59) mg/LFEU Sodium (135-145) mmol/L Potassium (3.5-5.3) mmol/L Chloride (100-110) mmol/L Carbon Dioxide (21-32) mmol/L BUN (7-18) mg/dL Creatinine (0.55-1.02) mg/dL Est Cr Clr Drug Dosing Estimated GFR (MDRD) (>60) BUN/Creatinine Ratio (9-20) Glucose (80-116) mg/dL Lactic Acid 1.5 (0.4-2.0) mmol/L Calcium (8.6-10.2) mg/dL Total Bilirubin (0.1-1.3) mg/dL AST (5-25) IU/L ALT (12-36) U/L Alkaline Phosphatase (56-112) IU/L Troponin I (4.0-60.3) pg/mL NT-Pro-B Natriuret Pep (<=450) pg/mL Total Protein (6.0-8.0) g/dL Albumin (3.2-4.6) g/dL Globulin g/dL Albumin/Globulin Ratio Urine Color Yellow (YELLOW) Urine Appearance Slightly cloudy (CLEAR) Urine pH 5.0 (5.0-6.5) Ur Specific Mel[place] 1.025 (1.010-1.025) Urine Protein Negative (NEGATIVE) mg/dL Urine Glucose (UA) Normal (NORMAL) mg/dL Urine Ketones 15 H (NEGATIVE) mg/dL Urine Occult Blood Negative (NEGATIVE) Urine Nitrite Negative (NEGATIVE) Urine Bilirubin Negative (NEGATIVE) Urine Urobilinogen Normal (NEGATIVE) mg/dL Ur Leukocyte Esterase Moderate H (NEGATIVE) Urine RBC 0-5 (0-5) Urine WBC 10-20 H (0-5) Ur Squamous Epith Cells Occasional (NS,R,O) Amorphous Sediment Few Urine Bacteria Few H (NS) Urine Mucus Moderate H (NS) 09/15/20 09/15/20 Range/Units 06:10 06:10 WBC 5.8 (3.0-10.3) x10-3/uL RBC 3.45 L (3.60-5.20) x10(6)uL Hgb 9.6 L (11.4-15.5) g/dL Hct 30.5 L (34.2-48.2) % MCV 88.4 (76.7-100.5) fL MCH 27.7 (23.9-33.9) pg MCHC 31.4 L (31.9-34.8) g/dL RDW 19.0 H (12.3-16.5) % Plt Count 230 (151-488) x10(3)uL MPV 8.5 (7.1-12.4) fL Neut % (Auto) 48.6 (30.8-76.2) % Lymph % (Auto) 32.3 (18.4-52.1) % [place] % (Auto) 12.3 (4.4-15.7) % Eos % (Auto) 5.7 (0.6-8.1) % Baso % (Auto) 1.1 (0.2-1.5) % Neut # (Auto) 2.8 (1.5-6.3) x10-3/uL Lymph # (Auto) 1.9 (1.0-4.4) x10-3/uL [place] # (Auto) 0.7 (0.3-1.0) x10-3/uL Eos # (Auto) 0.3 (0.0-0.8) x10-3/uL Baso # (Auto) 0.1 (0.0-0.1) x10-3/uL D-Dimer, Quantitative (0.0-0.59) mg/LFEU Sodium 154 H (135-145) mmol/L Potassium 2.9 L (3.5-5.3) mmol/L Chloride 110 D (100-110) mmol/L Carbon Dioxide 39 H (21-32) mmol/L BUN 19 H (7-18) mg/dL Creatinine 1.1 H (0.55-1.02) mg/dL Est Cr Clr Drug Dosing 34.64 Estimated GFR (MDRD) 48 L (>60) BUN/Creatinine Ratio 17.3 (9-20) Glucose 92 (80-116) mg/dL Lactic Acid (0.4-2.0) mmol/L Calcium 7.7 L (8.6-10.2) mg/dL Total Bilirubin (0.1-1.3) mg/dL AST (5-25) IU/L ALT (12-36) U/L Alkaline Phosphatase (56-112) IU/L Troponin I (4.0-60.3) pg/mL NT-Pro-B Natriuret Pep (<=450) pg/mL Total Protein (6.0-8.0) g/dL Albumin (3.2-4.6) g/dL Globulin g/dL Albumin/Globulin Ratio Urine Color (YELLOW) Urine Appearance (CLEAR) Urine pH (5.0-6.5) Ur Specific [place] (1.010-1.025) Urine Protein (NEGATIVE) mg/dL Urine Glucose (UA) (NORMAL) mg/dL Urine Ketones (NEGATIVE) mg/dL Urine Occult Blood (NEGATIVE) Urine Nitrite (NEGATIVE) Urine Bilirubin (NEGATIVE) Urine Urobilinogen (NEGATIVE) mg/dL Ur Leukocyte Esterase (NEGATIVE) Urine RBC (0-5) Urine WBC (0-5) Ur Squamous Epith Cells (NS,R,O) Amorphous Sediment Urine Bacteria (NS) Urine Mucus (NS) Result Diagrams: 09/15/20 06:10 09/15/20 06:10 Sepsis Event Note - Evaluation Sepsis Screening Result: No Definite Risk - Focused Exam Vital Signs: Vital Signs Temp Pulse Resp BP Pulse Ox 09/15/20 06:00 97.1 F 80 18 90/60 97 - Problem List (1) Aspiration pneumonia SNOMED Code(s): 203226995 ICD Code: J69.0 - PNEUMONITIS DUE TO INHALATION OF FOOD AND VOMIT Status: Acute Current Visit: Yes Qualifiers: Aspiration pneumonia type: unspecified (2) COPD (chronic obstructive pulmonary disease) SNOMED Code(s): 44313284 ICD Code: J44.9 - CHRONIC OBSTRUCTIVE PULMONARY DISEASE, UNSPECIFIED Status: Chronic Current Visit: Yes Qualifiers: COPD type: chronic bronchitis (3) Dementia SNOMED Code(s): 55125959 ICD Code: F03.90 - UNSPECIFIED DEMENTIA WITHOUT BEHAVIORAL DISTURBANCE Status: Acute Current Visit: No Qualifiers: Dementia type: Alzheimer's Alzheimer's disease onset: late-onset Dementia behavioral disturbance: with behavioral disturbance Qualified Code(s): G30.1 - Alzheimer's disease with late onset; F02.81 - Dementia in other diseases classified elsewhere with behavioral disturbance (4) Depressive disorder SNOMED Code(s): 66615976 ICD Code: F32.9 - MAJOR DEPRESSIVE DISORDER, SINGLE EPISODE, UNSPECIFIED Status: Acute Current Visit: No (5) Hypernatremia SNOMED Code(s): 772935349 ICD Code: E87.0 - HYPEROSMOLALITY AND HYPERNATREMIA Status: Acute Current Visit: No (6) Demand ischemia SNOMED Code(s): 260600825, 751961656591572 ICD Code: I24.8 - OTHER FORMS OF ACUTE ISCHEMIC HEART DISEASE Status: Acute Current Visit: Yes (7) Bacteriuria SNOMED Code(s): 12635525 ICD Code: R82.71 - BACTERIURIA Status: Acute Current Visit: Yes Problem List Initiated/Reviewed/Updated: Yes Orders Last 24hrs: Active Orders 24 hr Category Date Time Status Admission Status [Patient Status] [ADT] Routine ADT 09/14/20 18:00 Active Admission Status [Patient Status] [ADT] Routine ADT 09/14/20 18:03 Ordered Oxygen Therapy [RC] 0000 Care 09/14/20 18:00 Active RT Aerosol Therapy [RC] 09,13,17,21 Care 09/14/20 14:04 Active Vital Signs [RC] 08,12,16,20,00,04 Care 09/14/20 18:51 Active Cardiac Diet [Heart Healthy Diet] [DIET] Diet 09/15/20 Breakfast Active CULTURE BLOOD [BC] Urgent Lab 09/14/20 14:20 Received CULTURE BLOOD [BC] Urgent Lab 09/14/20 14:30 Received CULTURE URINE [RM] Stat Lab 09/14/20 14:50 Received Acetaminophen [TylenoL] Med 09/14/20 17:42 Active 650 mg PO Q4H PRN Albuterol [Proventil Neb Soln] Med 09/14/20 18:45 Active 2.5 mg NEB Q2H PRN Albuterol/Ipratropium [DuoNeb 3.0-0.5 MG/3 ML] Med 09/14/20 21:00 Active 3 ml NEB QID Aspirin [Halfprin] Med 09/14/20 21:00 Active 81 mg PO 21 Carboxymethylcellulose Sodium [Refresh Tears 0.5%] Med 09/14/20 21:00 Active 0 ml EYEBOTH TID ClonazePAM [KlonoPIN] Med 09/15/20 09:00 Active 0.5 mg PO DAILY DULoxetine [Cymbalta] Med 09/15/20 09:00 Active 90 mg PO DAILY Enoxaparin [Lovenox] Med 09/15/20 20:00 Active 40 mg SUBCUT Q24H Ferrous Sulfate Med 09/15/20 09:00 Active 325 mg PO DAILY Levothyroxine [Synthroid] Med 09/15/20 07:30 Active 88 mcg PO ACBREAKFAST Memantine [Namenda] Med 09/15/20 09:00 Active 10 mg PO DAILY Mirtazapine [Remeron] Med 09/14/20 21:00 Active 7.5 mg PO BEDTIME Piperacillin/Tazobactam [Zosyn] 3.375 gm Med 09/14/20 18:45 Active Sodium Chloride 0.9% [Normal Saline] 50 ml IV Q6H QUEtiapine [SEROqueL] Med 09/15/20 09:00 Active 25 mg PO DAILY@0900 QUEtiapine [SEROqueL] Med 09/15/20 16:00 Active 37.5 mg PO DAILY@1600 QUEtiapine [SEROquel XR] Med 09/15/20 21:00 Pending 150 mg PO BEDTIME Sodium Chloride 0.9% [Normal Saline] 1,000 ml Med 09/14/20 17:45 Active IV ASDIRECTED polyethylene glycoL 3350 [MiraLAX] Med 09/14/20 17:42 Active 17 gm PO DAILY PRN Blood Culture x2 Reflex Set [OM.PC] Urgent Oth 09/14/20 14:12 Ordered Give supplemental Oxygen PRN [COMM] Routine Oth 09/14/20 18:45 Ordered EKG 12 Lead [EK] Routine Ther 09/14/20 13:53 Ordered Medication Orders Acetaminophen (Acetaminophen 325 Mg Tab) 650 mg PO Q4H PRN PRN Reason: Pain Albuterol (Albuterol 0.083% 2.5 Mg/3 Ml Neb Soln) 2.5 mg NEB Q2H PRN PRN Reason: Shortness Of Breath/wheezing Albuterol/Ipratropium (Albuterol/Ipratropium 3.0-0.5 Mg/3 Ml Neb Soln) 3 ml NEB QID [facility] Last Admin: 09/15/20 08:41 Dose: 3 ml Documented by: Admin: 09/14/20 20:01 Dose: 3 ml Documented by: THERESA Artificial Tears (Carboxymethylcellulose Sodium 0.5% Ophth Soln 15 Ml Bottle) 0 ml EYEBOTH TID [facility] Last Admin: 09/15/20 08:43 Dose: 1 drop Documented by: Admin: 09/14/20 20:53 Dose: 1 drop Documented by: THERESA Aspirin (Aspirin 81 Mg Tab.Ec) 81 mg PO 21 [facility] Last Admin: 09/14/20 20:52 Dose: 81 mg Documented by: THERESA Clonazepam (Clonazepam 0.5 Mg Tab) 0.5 mg PO DAILY [facility] Duloxetine HCl (Duloxetine 30 Mg Cap) 90 mg PO DAILY [facility] Last Admin: 09/15/20 08:41 Dose: 90 mg Documented by: MAHSA Enoxaparin Sodium (Enoxaparin 40 Mg/0.4 Ml Syringe) 40 mg SUBCUT Q24H [facility] Ferrous Sulfate (Ferrous Sulfate 325 Mg Tab) 325 mg PO DAILY [facility] Last Admin: 09/15/20 08:42 Dose: 325 mg Documented by: MAHSA Sodium Chloride (Normal Saline) 1,000 mls @ 75 mls/hr IV ASDIRECTED [facility] Last Admin: 09/15/20 07:00 Dose: 75 mls/hr Documented by: Infusion: 09/15/20 07:00 Dose: 75 mls/hr Documented by: Admin: 09/14/20 19:00 Dose: 75 mls/hr Documented by: THERESA Piperacillin Sod/Tazobactam (Sod 3.375 gm/ Sodium Chloride) 50 mls @ 100 mls/hr IV Q6H [facility] Last Admin: 09/15/20 06:30 Dose: 100 mls/hr Documented by: Admin: 09/15/20 00:24 Dose: 100 mls/hr Documented by: Admin: 09/14/20 19:53 Dose: 100 mls/hr Documented by: THERESA Levothyroxine Sodium (Levothyroxine 88 Mcg Tab) 88 mcg PO ACBREAKFAST [facility] Last Admin: 09/15/20 08:41 Dose: 88 mcg Documented by: MAHSA Memantine (Memantine 10 Mg Tab) 10 mg PO DAILY [facility] Last Admin: 09/15/20 08:42 Dose: 10 mg Documented by: MAHSA Mirtazapine (Mirtazapine 15 Mg Tab) 7.5 mg PO BEDTIME [facility] Last Admin: 09/14/20 20:53 Dose: 7.5 mg Documented by: THERESA Polyethylene Glycol (Polyethylene Glycol 3350 Powder 17 Gm Packet) 17 gm PO DAILY PRN PRN Reason: Constipation Quetiapine Fumarate (Quetiapine 25 Mg Tab) 25 mg PO DAILY@0900 [facility] Last Admin: 09/15/20 08:43 Dose: 25 mg Documented by: MAHSA Quetiapine Fumarate (Quetiapine 25 Mg Tab) 37.5 mg PO DAILY@1600 [facility] Quetiapine Fumarate (Quetiapine 50 Mg Tab.Sr) 150 mg PO BEDTIME [facility] Assessment/Plan Comment:: Patient is doing better this morning, continued IV Zosyn. I will switch fluids to 1/2 NS and encourage oral intake. Replace K.I anticipate a discharge tomorrow
[2020-09-15] MEDS ORDERED: DULoxetine 30 MG Cap PO SCH (09:00)
[2020-09-15] MEDS: DULoxetine 30 MG Cap *PTOM PO SCH (11:36)
[2020-09-15] MEDS: DULoxetine 60 MG Cap *PTOM PO SCH (11:36)
[2020-09-15] MEDS: Levothyroxine 88 MCG Tab *PTOM PO SCH (11:36)
[2020-09-15] MEDS: Potassium Chloride 20 MEQ Tab.ER *PTOM PO SCH ×2 (11:40→20:44)
[2020-09-15] MEDS ORDERED: QUEtiapine 25 MG Tab *PTOM PO SCH (16:00)
[2020-09-15] MEDS ORDERED: Enoxaparin 40 MG/0.4 ML Syringe SUBCUT SCH (20:00)
[2020-09-15] MEDS: Sodium Chloride 0.45% with KCl 1,000 ML IV SCH (20:37)
[2020-09-15] MEDS: Aspirin 81 MG Tab.EC *PTOM PO SCH (20:43)
[2020-09-15] MEDS ORDERED: MIRTAZAPINE 7.5 MG PO SCH (21:00)
[2020-09-15] MEDS ORDERED: MELATONIN 5 MG PO SCH (21:00)
[2020-09-15] MEDS ORDERED: QUETIAPINE 150 MG PO SCH (21:00)
[2020-09-16] MEDS: Piperacillin/Tazobactam 3.375 GM in Sodium Chloride 0.9% 50 ML IV SCH ×3 (01:13→06:31)
[2020-09-16] MEDS: Sodium Chloride 0.45% with KCl 1,000 ML IV SCH (05:00)
[2020-09-16 07:49] VITALS: BP 92/54; PULSE 85
--- NOTE | 2020-09-16 08:56 | PCM.PN ---
- General Info Date of Service: 09/16/20 Admission Dx/Problem (Free Text): Patient has no concerns today. She does know why she is here. She denies fevers, chills, cough, leg swelling or shortness of breath. - Patient Data Vitals - Most Recent: Last Vital Signs Temp 97.3 F 09/16/20 07:48 Pulse 85 09/16/20 07:48 Resp 17 09/16/20 07:48 BP 92/54 L 09/16/20 07:48 Pulse Ox 91 L 09/16/20 07:48 Weight - Most Recent: 151 lb 6 oz I&O - Last 24 Hours: Intake & Output 09/15/20 09/16/20 09/16/20 22:59 06:59 14:59 Intake Total 100 1046 Balance 100 1046 Lab Results Last 24 Hours: Laboratory Results - last 24 hr 09/16/20 09/16/20 09/16/20 Range/Units 06:50 06:50 06:50 WBC 4.8 (3.0-10.3) x10-3/uL RBC 3.48 L (3.60-5.20) x10(6)uL Hgb 9.7 L (11.4-15.5) g/dL Hct 31.1 L (34.2-48.2) % MCV 89.4 (76.7-100.5) fL MCH 27.8 (23.9-33.9) pg MCHC 31.1 L (31.9-34.8) g/dL RDW 19.3 H (12.3-16.5) % Plt Count 205 (151-488) x10(3)uL MPV 8.3 (7.1-12.4) fL Neut % (Auto) 44.9 (30.8-76.2) % Lymph % (Auto) 34.1 (18.4-52.1) % [place] % (Auto) 13.2 (4.4-15.7) % Eos % (Auto) 6.8 (0.6-8.1) % Baso % (Auto) 1.0 (0.2-1.5) % Neut # (Auto) 2.1 (1.5-6.3) x10-3/uL Lymph # (Auto) 1.6 (1.0-4.4) x10-3/uL [place] # (Auto) 0.6 (0.3-1.0) x10-3/uL Eos # (Auto) 0.3 (0.0-0.8) x10-3/uL Baso # (Auto) 0.0 (0.0-0.1) x10-3/uL Sodium 152 H (135-145) mmol/L Potassium 4.0 D (3.5-5.3) mmol/L Chloride 112 H (100-110) mmol/L Carbon Dioxide 36 H (21-32) mmol/L BUN 15 (7-18) mg/dL Creatinine 1.1 H (0.55-1.02) mg/dL Est Cr Clr Drug Dosing 34.64 mL/min Estimated GFR (MDRD) 48 L (>60) BUN/Creatinine Ratio 13.6 (9-20) Glucose 91 (80-116) mg/dL Calcium 7.8 L (8.6-10.2) mg/dL Troponin I 53.2 (4.0-60.3) pg/mL C-Reactive Protein 2.3 H (0.5-0.9) mg/dL NT-Pro-B Natriuret Pep 510 H (<=450) pg/mL Rolf Results Last 24 Hours: Microbiology 09/14/20 14:50 Urine Culture - Preliminary Urine, Catheterized Gram Positive Cocci 09/14/20 14:20 Aerobic Blood Culture - Preliminary Blood - Venous NO GROWTH AFTER 1 DAY Anaerobic Blood Culture - Preliminary NO GROWTH AFTER 1 DAY 09/14/20 14:30 Aerobic Blood Culture - Preliminary Blood - Venous - Lab Draw NO GROWTH AFTER 1 DAY Anaerobic Blood Culture - Preliminary NO GROWTH AFTER 1 DAY Med Orders - Current: Current Medications Acetaminophen (Acetaminophen 325 Mg Tab) 650 mg PO Q4H PRN PRN Reason: Pain Albuterol (Albuterol 0.083% 2.5 Mg/3 Ml Neb Soln) 2.5 mg NEB Q2H PRN PRN Reason: Shortness Of Breath/wheezing Albuterol/Ipratropium (Albuterol/Ipratropium 3.0-0.5 Mg/3 Ml Neb Soln) 3 ml NEB QID [facility] Last Admin: 09/15/20 20:42 Dose: 3 ml Documented by: Artificial Tears (Carboxymethylcellulose Sodium 0.5% Ophth Soln 15 Ml Bottle) 0 ml EYEBOTH TID [facility] Last Admin: 09/15/20 23:16 Dose: Not Given Documented by: Aspirin (Aspirin 81 Mg Tab.Ec *Ptom*) 81 mg PO 21 [facility] Last Admin: 09/15/20 20:43 Dose: 81 mg Documented by: Clonazepam (Clonazepam 0.5 Mg Tab) 0.5 mg PO DAILY [facility] Last Admin: 09/15/20 08:48 Dose: 0.5 mg Documented by: Duloxetine HCl (Duloxetine 30 Mg Cap *Ptom*) 30 mg PO DAILY [facility] Last Admin: 09/15/20 11:36 Dose: 30 mg Documented by: Duloxetine HCl (Duloxetine 60 Mg Cap *Ptom*) 60 mg PO DAILY [facility] Last Admin: 09/15/20 11:36 Dose: 60 mg Documented by: Enoxaparin Sodium (Enoxaparin 40 Mg/0.4 Ml Syringe) 40 mg SUBCUT Q24H [facility] Last Admin: 09/15/20 20:41 Dose: 40 mg Documented by: Ferrous Sulfate (Ferrous Sulfate 325 Mg Tab *Ptom*) 325 mg PO DAILY [facility] Last Admin: 09/15/20 11:35 Dose: 325 mg Documented by: Piperacillin Sod/Tazobactam (Sod 3.375 gm/ Sodium Chloride) 50 mls @ 100 mls/hr IV Q6H [facility] Last Admin: 09/16/20 06:31 Dose: 100 mls/hr Documented by: Potassium Chloride/Sodium Chloride (1/2 Ns With 20 Meq Kcl) 1,000 mls @ 125 mls/hr IV ASDIRECTED [facility] Last Admin: 09/16/20 05:00 Dose: 125 mls/hr Documented by: Levothyroxine Sodium (Levothyroxine 88 Mcg Tab *Ptom*) 88 mcg PO DAILY [facility] Last Admin: 09/15/20 11:36 Dose: 88 mcg Documented by: Memantine (Memantine 10 Mg Tab *Ptom*) 10 mg PO DAILY [facility] Last Admin: 09/15/20 11:35 Dose: 10 mg Documented by: Quetiapine Er 150mg (Tab) 1 each PO BEDTIME [facility] Last Admin: 09/15/20 20:43 Dose: 1 each Documented by: Melatonin 5mg *Ptom* 1 each PO BEDTIME [facility] Last Admin: 09/15/20 20:43 Dose: 1 each Documented by: Mirtazapine 7.5mg * (Ptom*) 1 each PO BEDTIME [facility] Last Admin: 09/15/20 20:43 Dose: 1 each Documented by: Polyethylene Glycol (Polyethylene Glycol 3350 Powder 17 Gm Packet) 17 gm PO DAILY PRN PRN Reason: Constipation Potassium Chloride (Potassium Chloride 20 Meq Tab.Er *Ptom*) 20 meq PO BID [facility] Last Admin: 09/15/20 20:44 Dose: 20 meq Documented by: Quetiapine Fumarate (Quetiapine 25 Mg Tab *Ptom*) 25 mg PO DAILY@0900 [facility] Last Admin: 09/15/20 11:36 Dose: 25 mg Documented by: Quetiapine Fumarate (Quetiapine 25 Mg Tab *Ptom*) 37.5 mg PO DAILY@1600 [facility] Last Admin: 09/15/20 17:00 Dose: 37.5 mg Documented by: Discontinued Medications Albuterol/Ipratropium (Albuterol/Ipratropium 3.0-0.5 Mg/3 Ml Neb Soln) 3 ml NEB NOW STA Stop: 09/14/20 14:05 Last Admin: 09/14/20 14:15 Dose: 3 ml Documented by: Enoxaparin Sodium (Enoxaparin 40 Mg/0.4 Ml Syringe) 40 mg SUBCUT DAILY [facility] Last Admin: 09/14/20 19:54 Dose: 40 mg Documented by: Sodium Chloride (Normal Saline) 1,000 mls @ 500 mls/hr IV ASDIRECTED [facility] Last Admin: 09/14/20 14:55 Dose: 500 mls/hr Documented by: Sodium Chloride (Normal Saline) 1,000 mls @ 75 mls/hr IV ASDIRECTED [facility] Last Admin: 09/15/20 07:00 Dose: 75 mls/hr Documented by: Iopamidol (Iopamidol 755 Mg/Ml 75 Ml Bottle) 75 ml IV ASDIRECTED ONE Stop: 09/14/20 15:42 Last Admin: 09/14/20 16:13 Dose: 75 ml Documented by: Levothyroxine Sodium (Levothyroxine 88 Mcg Tab) 88 mcg PO ACBREAKFAST [facility] Last Admin: 09/15/20 11:51 Dose: Not Given Documented by: Melatonin (Melatonin 3 Mg Tab) 3 mg PO ONETIME ONE Stop: 09/14/20 21:37 Last Admin: 09/14/20 21:58 Dose: 3 mg Documented by: Mirtazapine (Mirtazapine 15 Mg Tab) 7.5 mg PO BEDTIME [facility] Last Admin: 09/14/20 20:53 Dose: 7.5 mg Documented by: Quetiapine Fumarate (Quetiapine 50 Mg Tab.Sr) 150 mg PO BEDTIME [facility] Last Admin: 09/14/20 21:58 Dose: Not Given Documented by: Quetiapine Fumarate (Quetiapine 50 Mg Tab) 150 mg PO ONETIME ONE Stop: 09/14/20 21:40 Last Admin: 09/14/20 22:10 Dose: 150 mg Documented by: - Exam Quality Assessment: Supplemental Oxygen General: Alert, Cooperative. No: Oriented Lungs: Normal Respiratory Effort, Decreased Breath Sounds (Bilateral. Not able to hear any wheezes rales or rhonchi today.) Cardiovascular: Regular Rate, Regular Rhythm, No Murmurs Extremities: No Pedal Edema - Patient Data Lab Results Last 24 hrs: Laboratory Results - last 24 hr 09/16/20 09/16/20 09/16/20 Range/Units 06:50 06:50 06:50 WBC 4.8 (3.0-10.3) x10-3/uL RBC 3.48 L (3.60-5.20) x10(6)uL Hgb 9.7 L (11.4-15.5) g/dL Hct 31.1 L (34.2-48.2) % MCV 89.4 (76.7-100.5) fL MCH 27.8 (23.9-33.9) pg MCHC 31.1 L (31.9-34.8) g/dL RDW 19.3 H (12.3-16.5) % Plt Count 205 (151-488) x10(3)uL MPV 8.3 (7.1-12.4) fL Neut % (Auto) 44.9 (30.8-76.2) % Lymph % (Auto) 34.1 (18.4-52.1) % [place] % (Auto) 13.2 (4.4-15.7) % Eos % (Auto) 6.8 (0.6-8.1) % Baso % (Auto) 1.0 (0.2-1.5) % Neut # (Auto) 2.1 (1.5-6.3) x10-3/uL Lymph # (Auto) 1.6 (1.0-4.4) x10-3/uL [place] # (Auto) 0.6 (0.3-1.0) x10-3/uL Eos # (Auto) 0.3 (0.0-0.8) x10-3/uL Baso # (Auto) 0.0 (0.0-0.1) x10-3/uL Sodium 152 H (135-145) mmol/L Potassium 4.0 D (3.5-5.3) mmol/L Chloride 112 H (100-110) mmol/L Carbon Dioxide 36 H (21-32) mmol/L BUN 15 (7-18) mg/dL Creatinine 1.1 H (0.55-1.02) mg/dL Est Cr Clr Drug Dosing 34.64 mL/min Estimated GFR (MDRD) 48 L (>60) BUN/Creatinine Ratio 13.6 (9-20) Glucose 91 (80-116) mg/dL Calcium 7.8 L (8.6-10.2) mg/dL Troponin I 53.2 (4.0-60.3) pg/mL C-Reactive Protein 2.3 H (0.5-0.9) mg/dL NT-Pro-B Natriuret Pep 510 H (<=450) pg/mL Result Diagrams: 09/16/20 06:50 09/16/20 06:50 Rolf Results Last 24 hrs: Microbiology 09/14/20 14:50 Urine Culture - Preliminary Urine, Catheterized Gram Positive Cocci 09/14/20 14:20 Aerobic Blood Culture - Preliminary Blood - Venous NO GROWTH AFTER 1 DAY Anaerobic Blood Culture - Preliminary NO GROWTH AFTER 1 DAY 09/14/20 14:30 Aerobic Blood Culture - Preliminary Blood - Venous - Lab Draw NO GROWTH AFTER 1 DAY Anaerobic Blood Culture - Preliminary NO GROWTH AFTER 1 DAY Sepsis Event Note - Evaluation Sepsis Screening Result: No Definite Risk - Focused Exam Vital Signs: Vital Signs Temp Pulse Resp BP Pulse Ox 09/16/20 07:48 97.3 F 85 17 92/54 L 91 L - Problem List & Annotations (1) Oxygen dependent SNOMED Code(s): 541787485533 Code(s): Z99.81 - DEPENDENCE ON SUPPLEMENTAL OXYGEN Status: Acute Current Visit: Yes (2) Aspiration pneumonia SNOMED Code(s): 833319718 Code(s): J69.0 - PNEUMONITIS DUE TO INHALATION OF FOOD AND VOMIT Status: Acute Current Visit: Yes Qualifiers: Aspiration pneumonia type: unspecified (3) Bacteriuria SNOMED Code(s): 37378558 Code(s): R82.71 - BACTERIURIA Status: Acute Current Visit: Yes (4) Demand ischemia SNOMED Code(s): 736605058, 866914317772886 Code(s): I24.8 - OTHER FORMS OF ACUTE ISCHEMIC HEART DISEASE Status: Acute Current Visit: Yes (5) COPD (chronic obstructive pulmonary disease) SNOMED Code(s): 34081847 Code(s): J44.9 - CHRONIC OBSTRUCTIVE PULMONARY DISEASE, UNSPECIFIED Status: Chronic Current Visit: Yes Qualifiers: COPD type: chronic bronchitis (6) Dementia SNOMED Code(s): 25874007 Code(s): F03.90 - UNSPECIFIED DEMENTIA WITHOUT BEHAVIORAL DISTURBANCE Status: Acute Current Visit: No Qualifiers: Dementia type: Alzheimer's Alzheimer's disease onset: late-onset Dementia behavioral disturbance: with behavioral disturbance Qualified Code(s): G30.1 - Alzheimer's disease with late onset; F02.81 - Dementia in other diseases classified elsewhere with behavioral disturbance (7) Depressive disorder SNOMED Code(s): 37469609 Code(s): F32.9 - MAJOR DEPRESSIVE DISORDER, SINGLE EPISODE, UNSPECIFIED Status: Acute Current Visit: No (8) Hypernatremia SNOMED Code(s): 458179032 Code(s): E87.0 - HYPEROSMOLALITY AND HYPERNATREMIA Status: Acute Current Visit: No - Problem List Review Problem List Initiated/Reviewed/Updated: Yes - Plan Plan:: Her and her family wanted her to be discharged home on hospice. I will continue same medications and Augmentin with Zithromax for the pneumonia.
--- NOTE | 2020-09-16 09:05 | PCM.DCSUM1 ---
Discharge Summary - Hospital Course Free Text/Narrative:: Hospital course-patient was admitted and placed on Zosyn IV. X-rays were done that showed possible pneumonia bilateral bases. Patient is currently on O2 and her oxygen was the same. She has dementia and depression. Overnight she did well her sodium was little elevated. They started some half-normal saline to bring her down in about a down mildly. The son is the power of loan supervisor decided he wanted to make her hospice and take her home. So we'll discharge her to [facility] with hospice. I will give her Augmentin and Zithromax. Because hospice no treatment for hyponatremia. Patient is a little anemic also and that was not addressed at this visit. Brief History: Belinda was brought from [facility], after aspirating Jell-O. She was found to be hypoxic. History taking is difficult because of dementia. CT of the chest confirmed pneumonitis. Overnight she submitted 2 L of oxygenation.No fever. She has a history of recurrent pneumonia. Was admitted on 08/04/2020 for the same reason. She also has a history of COPD, CHF and Hypothyroidism. Ostensibly dysphagia has been a chronic problem but she is unable to tolerate thickened or pured food. Diagnosis: Stroke: No - Discharge Data Discharge Date: 09/16/20 Discharge Disposition: Home, Self-Care 01 Condition: Good - Referral to Home Health Primary Care Physician: PCP Unknown - Discharge Diagnosis/Problem(s) (1) Oxygen dependent SNOMED Code(s): 524747480452 ICD Code: Z99.81 - DEPENDENCE ON SUPPLEMENTAL OXYGEN Status: Acute Current Visit: Yes (2) Aspiration pneumonia SNOMED Code(s): 865454213 ICD Code: J69.0 - PNEUMONITIS DUE TO INHALATION OF FOOD AND VOMIT Status: Acute Current Visit: Yes Qualifiers: Aspiration pneumonia type: unspecified (3) Bacteriuria SNOMED Code(s): 69635943 ICD Code: R82.71 - BACTERIURIA Status: Acute Current Visit: Yes (4) Demand ischemia SNOMED Code(s): 165141877, 603563681581974 ICD Code: I24.8 - OTHER FORMS OF ACUTE ISCHEMIC HEART DISEASE Status: Acute Current Visit: Yes (5) COPD (chronic obstructive pulmonary disease) SNOMED Code(s): 37006392 ICD Code: J44.9 - CHRONIC OBSTRUCTIVE PULMONARY DISEASE, UNSPECIFIED Status: Chronic Current Visit: Yes Qualifiers: COPD type: chronic bronchitis (6) Dementia SNOMED Code(s): 86568707 ICD Code: F03.90 - UNSPECIFIED DEMENTIA WITHOUT BEHAVIORAL DISTURBANCE Status: Acute Current Visit: No Qualifiers: Dementia type: Alzheimer's Alzheimer's disease onset: late-onset Dementia behavioral disturbance: with behavioral disturbance Qualified Code(s): G30.1 - Alzheimer's disease with late onset; F02.81 - Dementia in other diseases classified elsewhere with behavioral disturbance (7) Depressive disorder SNOMED Code(s): 55034434 ICD Code: F32.9 - MAJOR DEPRESSIVE DISORDER, SINGLE EPISODE, UNSPECIFIED Status: Acute Current Visit: No (8) Hypernatremia SNOMED Code(s): 761678479 ICD Code: E87.0 - HYPEROSMOLALITY AND HYPERNATREMIA Status: Acute Current Visit: No - Patient Instructions Diet: Regular Diet as Tolerated Activity: As Tolerated Driving: Do Not Drive Showering/Bathing: May Shower Other/Special Instructions: 1. Transfer to [facility] on hospice. 2. Recheck with primary provider in one week. 3. Continue home O2 as previously prescribed. - Discharge Plan Prescriptions/Med Rec: Amoxicillin/Clavulanate K [Augmentin 500-125 MG] 1 tab PO TID #21 tab Azithromycin [Zithromax] 250 mg PO DAILY #6 tablet Home Medications: Home Meds Aspirin [Ecotrin EC] 81 mg PO BEDTIME 05/09/15 [History] Levothyroxine [Synthroid] 88 mcg PO DAILY 11/18/17 [History] Carboxymethylcellulose Sodium [Refresh Tears] 1 drop EYEBOTH TID 11/28/18 [History] DULoxetine [Cymbalta] 90 mg PO DAILY 11/28/18 [History] Memantine [Namenda] 10 mg PO DAILY 11/28/18 [History] Melatonin 5 mg PO BEDTIME 07/11/20 [History] Mirtazapine 7.5 mg PO BEDTIME 07/11/20 [History] QUEtiapine [SEROquel] 25 mg PO DAILY@0900 07/11/20 [History] Ferrous Sulfate 325 mg PO DAILY 07/24/20 [History] QUEtiapine [SEROquel XR] 150 mg PO BEDTIME 07/25/20 [History] QUEtiapine [SEROquel] 37.5 mg PO DAILY@1600 07/25/20 [History] Acetaminophen 650 mg PO Q4HR PRN 08/04/20 [History] ClonazePAM [KlonoPIN] 0.5 mg PO DAILY 08/04/20 [History] polyethylene glycoL 3350 [Miralax] 17 gm PO DAILY PRN 1 Days #1 bottle 08/08/20 [Rx] Furosemide [Lasix] 20 mg PO DAILY 09/14/20 [History] Potassium Chloride [Klor-Con M20] 20 meq PO 1700 09/14/20 [History] Amoxicillin/Clavulanate K [Augmentin 500-125 MG] 1 tab PO TID #21 tab 09/16/20 [Rx] Azithromycin [Zithromax] 250 mg PO DAILY #6 tablet 09/16/20 [Rx] Forms: ED Department Discharge Referrals: PCP,Unknown [Primary Care Provider] - - Discharge Summary/Plan Comment DC Time >30 min.: No - Patient Data Vitals - Most Recent: Last Vital Signs Temp 97.3 F 09/16/20 07:48 Pulse 85 09/16/20 07:48 Resp 17 09/16/20 07:48 BP 92/54 L 09/16/20 07:48 Pulse Ox 91 L 09/16/20 07:48 Weight - Most Recent: 151 lb 6 oz I&O - Last 24 hours: Intake & Output 09/15/20 09/16/20 09/16/20 22:59 06:59 14:59 Intake Total 100 1046 Balance 100 1046 Lab Results - Last 24 hrs: Laboratory Results - last 24 hr 09/16/20 09/16/20 09/16/20 Range/Units 06:50 06:50 06:50 WBC 4.8 (3.0-10.3) x10-3/uL RBC 3.48 L (3.60-5.20) x10(6)uL Hgb 9.7 L (11.4-15.5) g/dL Hct 31.1 L (34.2-48.2) % MCV 89.4 (76.7-100.5) fL MCH 27.8 (23.9-33.9) pg MCHC 31.1 L (31.9-34.8) g/dL RDW 19.3 H (12.3-16.5) % Plt Count 205 (151-488) x10(3)uL MPV 8.3 (7.1-12.4) fL Neut % (Auto) 44.9 (30.8-76.2) % Lymph % (Auto) 34.1 (18.4-52.1) % [place] % (Auto) 13.2 (4.4-15.7) % Eos % (Auto) 6.8 (0.6-8.1) % Baso % (Auto) 1.0 (0.2-1.5) % Neut # (Auto) 2.1 (1.5-6.3) x10-3/uL Lymph # (Auto) 1.6 (1.0-4.4) x10-3/uL [place] # (Auto) 0.6 (0.3-1.0) x10-3/uL Eos # (Auto) 0.3 (0.0-0.8) x10-3/uL Baso # (Auto) 0.0 (0.0-0.1) x10-3/uL Sodium 152 H (135-145) mmol/L Potassium 4.0 D (3.5-5.3) mmol/L Chloride 112 H (100-110) mmol/L Carbon Dioxide 36 H (21-32) mmol/L BUN 15 (7-18) mg/dL Creatinine 1.1 H (0.55-1.02) mg/dL Est Cr Clr Drug Dosing 34.64 mL/min Estimated GFR (MDRD) 48 L (>60) BUN/Creatinine Ratio 13.6 (9-20) Glucose 91 (80-116) mg/dL Calcium 7.8 L (8.6-10.2) mg/dL Troponin I 53.2 (4.0-60.3) pg/mL C-Reactive Protein 2.3 H (0.5-0.9) mg/dL NT-Pro-B Natriuret Pep 510 H (<=450) pg/mL FREDY Results - Last 24 hrs: Microbiology 09/14/20 14:50 Urine Culture - Preliminary Urine, Catheterized Gram Positive Cocci 09/14/20 14:20 Aerobic Blood Culture - Preliminary Blood - Venous NO GROWTH AFTER 1 DAY Anaerobic Blood Culture - Preliminary NO GROWTH AFTER 1 DAY 09/14/20 14:30 Aerobic Blood Culture - Preliminary Blood - Venous - Lab Draw NO GROWTH AFTER 1 DAY Anaerobic Blood Culture - Preliminary NO GROWTH AFTER 1 DAY Med Orders - Current: Current Medications Acetaminophen (Acetaminophen 325 Mg Tab) 650 mg PO Q4H PRN PRN Reason: Pain Albuterol (Albuterol 0.083% 2.5 Mg/3 Ml Neb Soln) 2.5 mg NEB Q2H PRN PRN Reason: Shortness Of Breath/wheezing Albuterol/Ipratropium (Albuterol/Ipratropium 3.0-0.5 Mg/3 Ml Neb Soln) 3 ml NEB QID [facility] Last Admin: 09/15/20 20:42 Dose: 3 ml Documented by: Artificial Tears (Carboxymethylcellulose Sodium 0.5% Ophth Soln 15 Ml Bottle) 0 ml EYEBOTH TID [facility] Last Admin: 09/15/20 23:16 Dose: Not Given Documented by: Aspirin (Aspirin 81 Mg Tab.Ec *Ptom*) 81 mg PO 21 [facility] Last Admin: 09/15/20 20:43 Dose: 81 mg Documented by: Clonazepam (Clonazepam 0.5 Mg Tab) 0.5 mg PO DAILY [facility] Last Admin: 09/15/20 08:48 Dose: 0.5 mg Documented by: Duloxetine HCl (Duloxetine 30 Mg Cap *Ptom*) 30 mg PO DAILY [facility] Last Admin: 09/15/20 11:36 Dose: 30 mg Documented by: Duloxetine HCl (Duloxetine 60 Mg Cap *Ptom*) 60 mg PO DAILY [facility] Last Admin: 09/15/20 11:36 Dose: 60 mg Documented by: Enoxaparin Sodium (Enoxaparin 40 Mg/0.4 Ml Syringe) 40 mg SUBCUT Q24H [facility] Last Admin: 09/15/20 20:41 Dose: 40 mg Documented by: Ferrous Sulfate (Ferrous Sulfate 325 Mg Tab *Ptom*) 325 mg PO DAILY [facility] Last Admin: 09/15/20 11:35 Dose: 325 mg Documented by: Piperacillin Sod/Tazobactam (Sod 3.375 gm/ Sodium Chloride) 50 mls @ 100 mls/hr IV Q6H [facility] Last Admin: 09/16/20 06:31 Dose: 100 mls/hr Documented by: Potassium Chloride/Sodium Chloride (1/2 Ns With 20 Meq Kcl) 1,000 mls @ 125 mls/hr IV ASDIRECTED [facility] Last Admin: 09/16/20 05:00 Dose: 125 mls/hr Documented by: Levothyroxine Sodium (Levothyroxine 88 Mcg Tab *Ptom*) 88 mcg PO DAILY [facility] Last Admin: 09/15/20 11:36 Dose: 88 mcg Documented by: Memantine (Memantine 10 Mg Tab *Ptom*) 10 mg PO DAILY [facility] Last Admin: 09/15/20 11:35 Dose: 10 mg Documented by: Quetiapine Er 150mg (Tab) 1 each PO BEDTIME [facility] Last Admin: 09/15/20 20:43 Dose: 1 each Documented by: Melatonin 5mg *Ptom* 1 each PO BEDTIME [facility] Last Admin: 09/15/20 20:43 Dose: 1 each Documented by: Mirtazapine 7.5mg * (Ptom*) 1 each PO BEDTIME [facility] Last Admin: 09/15/20 20:43 Dose: 1 each Documented by: Polyethylene Glycol (Polyethylene Glycol 3350 Powder 17 Gm Packet) 17 gm PO DAILY PRN PRN Reason: Constipation Potassium Chloride (Potassium Chloride 20 Meq Tab.Er *Ptom*) 20 meq PO BID [facility] Last Admin: 09/15/20 20:44 Dose: 20 meq Documented by: Quetiapine Fumarate (Quetiapine 25 Mg Tab *Ptom*) 25 mg PO DAILY@0900 [facility] Last Admin: 09/15/20 11:36 Dose: 25 mg Documented by: Quetiapine Fumarate (Quetiapine 25 Mg Tab *Ptom*) 37.5 mg PO DAILY@1600 [facility] Last Admin: 09/15/20 17:00 Dose: 37.5 mg Documented by: Discontinued Medications Albuterol/Ipratropium (Albuterol/Ipratropium 3.0-0.5 Mg/3 Ml Neb Soln) 3 ml NEB NOW STA Stop: 09/14/20 14:05 Last Admin: 09/14/20 14:15 Dose: 3 ml Documented by: Enoxaparin Sodium (Enoxaparin 40 Mg/0.4 Ml Syringe) 40 mg SUBCUT DAILY [facility] Last Admin: 09/14/20 19:54 Dose: 40 mg Documented by: Sodium Chloride (Normal Saline) 1,000 mls @ 500 mls/hr IV ASDIRECTED [facility] Last Admin: 09/14/20 14:55 Dose: 500 mls/hr Documented by: Sodium Chloride (Normal Saline) 1,000 mls @ 75 mls/hr IV ASDIRECTED [facility] Last Admin: 09/15/20 07:00 Dose: 75 mls/hr Documented by: Iopamidol (Iopamidol 755 Mg/Ml 75 Ml Bottle) 75 ml IV ASDIRECTED ONE Stop: 09/14/20 15:42 Last Admin: 09/14/20 16:13 Dose: 75 ml Documented by: Levothyroxine Sodium (Levothyroxine 88 Mcg Tab) 88 mcg PO ACBREAKFAST [facility] Last Admin: 09/15/20 11:51 Dose: Not Given Documented by: Melatonin (Melatonin 3 Mg Tab) 3 mg PO ONETIME ONE Stop: 09/14/20 21:37 Last Admin: 09/14/20 21:58 Dose: 3 mg Documented by: Mirtazapine (Mirtazapine 15 Mg Tab) 7.5 mg PO BEDTIME [facility] Last Admin: 09/14/20 20:53 Dose: 7.5 mg Documented by: Quetiapine Fumarate (Quetiapine 50 Mg Tab.Sr) 150 mg PO BEDTIME [facility] Last Admin: 09/14/20 21:58 Dose: Not Given Documented by: Quetiapine Fumarate (Quetiapine 50 Mg Tab) 150 mg PO ONETIME ONE Stop: 09/14/20 21:40 Last Admin: 09/14/20 22:10 Dose: 150 mg Documented by:
[2020-09-16] MEDS: DULoxetine 30 MG Cap *PTOM PO SCH (09:09)
[2020-09-16] MEDS: DULoxetine 60 MG Cap *PTOM PO SCH (09:09)
[2020-09-16] MEDS: Albuterol/Ipratropium 3.0-0.5 MG/3 ML Neb Soln NEB SCH (09:09)
[2020-09-16] MEDS: Levothyroxine 88 MCG Tab *PTOM PO SCH (09:09)
[2020-09-16] MEDS: QUEtiapine 25 MG Tab *PTOM PO SCH (09:10)
[2020-09-16] MEDS: Memantine 10 MG Tab *PTOM PO SCH (09:10)
[2020-09-16] MEDS: Ferrous Sulfate 325 MG Tab *PTOM PO SCH (09:10)
[2020-09-16] MEDS: Carboxymethylcellulose Sodium 0.5% Ophth Soln 15 ML Bottle EYEBOTH SCH ×2 (09:11→09:12)
[2020-09-16] MEDS: Potassium Chloride 20 MEQ Tab.ER *PTOM PO SCH (09:11)
[2020-09-16] MEDS: ClonazePAM 0.5 MG Tab PO SCH (09:16)
== END 2020-09-16 10:44 | disposition home or self-care (01) ==
LOC: FB.ED 13:49 → FB.MS 18:03 → INTOOBSV 18:03
PROVIDERS: ADMIT Emergency Medicine; ATTEND Family Medicine
DX: J69.0 Pneumonitis due to inhalation of food and vomit (principal); R82.71 Bacteriuria; I24.8 Other forms of acute ischemic heart disease; J44.9 Chronic obstructive pulmonary disease, unspecified; G30.1 Alzheimer's disease with late onset; F02.81 Dementia in other diseases classified elsewhere, unspecified severity, with behavioral disturbance; F32.9 Major depressive disorder, single episode, unspecified; E87.0 Hyperosmolality and hypernatremia; E78.00 Pure hypercholesterolemia, unspecified; N30.00 Acute cystitis without hematuria; I50.9 Heart failure, unspecified; Z99.81 Dependence on supplemental oxygen; Z79.82 Long term (current) use of aspirin; Z79.890 Hormone replacement therapy; Z79.899 Other long term (current) drug therapy
CPT/HCPCS: 36415; 71045; 71275; 80048; 80053; 81001; 83605; 83880; 84484; 85025; 85379; 86140; 87040; 87086; 87088; 87186; 93005; 94640; 96365; 96366; 96372; 96376; 99285; A9270; G0378; J1650; J2543; J3480; J7030; Q9967; J7620-GY